=== PATIENT | male | born 1995 | race African-American/Black ===

== ENCOUNTER 2017-02-10 20:31 | Emergency (ER) | payer SELFPAY ==
[2017-02-10 21:41] LABS: APPEARANCE,URINE CLEAR; BILIRUBIN,URINE NEGATIVE (NEGATIVE); GLUCOSE, URINE NEGATIVE (NEGATIVE); KETONES,URINE 80 mg/dL (NEGATIVE); LEUKOCYTE ESTERASE,URINE NEGATIVE (NEGATIVE); NITRITE,URINE NEGATIVE (NEGATIVE); PROTEIN,URINE 100 mg/dL (NEGATIVE); URINE SPECIFIC GRAVITY 1.017; UROBILINOGEN,URINE NEGATIVE mg/dL (<2.0)
[2017-02-10 21:44] LABS: ABSOLUTE LYMPHOCYTES (AUTO) 1.3 10^3/uL (0.5-4.7); ABSOLUTE MONOCYTES (AUTO) 0.9 10^3/uL (0.1-1.4); ABSOLUTE NEUT (AUTO) 6.1 10^3/uL (1.7-8.2); BASOPHILS % (AUTO) 0.2 % (0-2); EOSINOPHILS % (AUTO) 0.3 % (0-6); HEMATOCRIT 46.2 % (37.9-51.0); HEMOGLOBIN 15.2 g/dL (13.5-17.0); HGB HCT DIFFERENCE -0.6; LYMPHOCYTES % (AUTO) 15.3 % (13-45); MEAN CORPUSCULAR HEMOGLOBIN 26.6 pg (27.0-33.4); MEAN CORPUSCULAR HGB CONC 32.8 g/dL (32.0-36.0); MEAN CORPUSCULAR VOLUME 81 fl (80-97); MONOCYTES % (AUTO) 10.9 % (3-13); RED BLOOD COUNT 5.71 10^6/uL (4.35-5.55); RED CELL DISTRIBUTION WIDTH 14.8 % (11.5-14.0); SEGMENTED NEUTROPHILS % (AUTO) 73.3 % (42-78); WHITE BLOOD COUNT 8.3 10^3/uL (4.0-10.5)
[2017-02-10 21:52] LABS: ALANINE AMINOTRANSFERASE 39 U/L (21-72); ALBUMIN 4.1 g/dL (3.5-5.0); ALKALINE PHOSPHATASE 76 U/L (38-126); ANION GAP 11 (5-19); ASPARTATE AMINO TRANSFERASE 25 U/L (17-59); BILIRUBIN,DIRECT 0.6 mg/dL (0.0-0.4); BILIRUBIN,TOTAL 0.9 mg/dL (0.2-1.3); BLOOD UREA NITROGEN 7 mg/dL (7-20); CALCIUM 10.1 mg/dL (8.4-10.2); CARBON DIOXIDE 26 mmol/L (22-30); CHLORIDE 104 mmol/L (98-107); GLUCOSE 79 mg/dL (75-110); POTASSIUM 4.6 mmol/L (3.6-5.0); SODIUM 141.4 mmol/L (137-145); TOTAL PROTEIN 7.5 g/dL (6.3-8.2)
[2017-02-10 22:01] LABS: LIPASE 2870.8 U/L (23-300)
[2017-02-10] MEDS ORDERED: HYDROCODONE/ACETAMINOPHEN 5-325 MG 6 TAB/DSPK PO PRN (22:40)
[2017-02-10] MEDS ORDERED: MORPHINE SULFATE IR 15 MG TABLET PO ONE (22:40)
[2017-02-10] MEDS ORDERED: ONDANSETRON ODT 4 MG TAB (6 TAB/DSPK) PO PRN (22:41)
--- NOTE | 2017-02-10 22:49 | ER Document Report ---
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 Describes as a severe, constant stabbing pain to the epigastrium worsened by alcohol ingestion. Nothing improves the pain. Patient states that this feels exactly the same as prior episodes of pancreatitis. Does admit to ongoing frequent alcohol abuse. He does not have a primary care physician. He has had one episode of vomiting since onset of the pain but otherwise reports has been able to tolerate oral intake without difficulty. He has not had any fever, chest pain or shortness of breath. TRAVEL OUTSIDE OF THE [place] IN LAST 30 DAYS: No - Related Data Allergies/Adverse Reactions: No Known Allergies Allergy (Verified 01/09/15 22:24) Past Medical History - General Information source: Patient - Social History Smoking Status: Current Every Day Smoker Chew tobacco use (# tins/day): No Frequency of alcohol use: daily Drug Abuse: None Lives with: Family Family History: Reviewed & Not Pertinent Patient has suicidal ideation: No Patient has homicidal ideation: No Renal/ Medical History: Denies: Hx Peritoneal Dialysis Psychiatric Medical History: Denies: Hx Depression - Immunizations Hx Diphtheria, Pertussis, Tetanus Vaccination: Yes Review of Systems - Review of Systems Notes: Constitutional: Negative for fever. HENT: Negative for sore throat. Eyes: Negative for visual changes. Cardiovascular: Negative for chest pain. Respiratory: Negative for shortness of breath. Gastrointestinal: Positive for abdominal pain and vomiting Genitourinary: Negative for dysuria. Musculoskeletal: Negative for back pain. Skin: Negative for rash. Neurological: Negative for headaches, weakness or numbness. 10 point ROS negative except as marked above and in HPI. Physical Exam - Vital signs Vitals: Temp Pulse Resp BP Pulse Ox 98.4 F 75 18 144/94 H 98 02/10/17 20:47 02/10/17 20:47 02/10/17 20:47 02/10/17 20:47 02/10/17 20:47 Interpretation: Hypertensive Notes: PHYSICAL EXAMINATION: GENERAL: Well-appearing, well-nourished and in no acute distress. HEAD: Atraumatic, normocephalic. EYES: Pupils equal round and reactive to light, extraocular movements intact, sclera anicteric, conjunctiva are normal. ENT: nares patent, oropharynx clear without exudates. Moist mucous membranes. NECK: Normal range of motion, supple without lymphadenopathy LUNGS: Breath sounds clear to auscultation bilaterally and equal. No wheezes rales or rhonchi. HEART: Regular rate and rhythm without murmurs ABDOMEN: Soft, mild epigastric abdominal tenderness on palpation otherwise no localized tenderness, normoactive bowel sounds. No guarding, no rebound. No masses appreciated. EXTREMITIES: Normal range of motion, no pitting or edema. No cyanosis. NEUROLOGICAL: No focal neurological deficits. Moves all extremities spontaneously and on command. PSYCH: Normal mood, normal affect. SKIN: Warm, Dry, normal turgor, no rashes or lesions noted. Course - Re-evaluation Re-evalutation: 02/10/17 22:41 Patient presents with clinical history and exam and labs to suggest acute pancreatitis. Lipase is markedly elevated today. Patient admits to alcohol use as the trigger for the acute episode of pancreatitis and has a history of the same in the past. At time of arrival, patient's vitals are within normal limits, they are well-appearing and in no acute distress. The patient has tolerated oral intake without difficulty and has not had any vomiting with today 's presentation. Pain was able to be controlled here in the emergency department with oral medications. Halifax score is 0. Patient is an appropriate candidate for outpatient management of this acute episode of pancreatitis using oral pain medications, antiemetics, and recommendations for a clear liquid diet until pain has resolved. I also provided the patient with a list of resources and extensively discussed with him at the bedside the importance of discontinuing his chronic alcohol abuse. At this time will discharge with return precautions and follow-up recommendations. Verbal discharge instructions given a the bedside and opportunity for questions given. Medication warnings reviewed. Patient is in agreement with this plan and has verbalized understanding of return precautions and the need for primary care follow-up in the next 24-72 hours. - Vital Signs Vital signs: Temp Pulse Resp BP Pulse Ox 99.1 F 93 12 143/77 H 99 02/10/17 22:54 02/10/17 22:54 02/10/17 22:54 02/10/17 22:54 02/10/17 22:54 - Laboratory Result Diagrams: 02/10/17 21:06 02/10/17 21:06 Laboratory results interpreted by me: 02/10/17 02/10/17 02/10/17 21:06 21:06 21:06 RBC 5.71 H MCH 26.6 L RDW 14.8 H Direct Bilirubin 0.6 H Lipase 2870.8 H Urine Protein 100 H Urine Ketones 80 H Urine Blood SMALL H Discharge - Discharge Clinical Impression: Acute pancreatitis Qualifiers: Pancreatitis type: alcohol induced Acute pancreatitis complication: no infection or necrosis Qualified Code(s): K85.20 - Alcohol induced acute pancreatitis without necrosis or infection Condition: Good Disposition: HOME, SELF-CARE Additional Instructions: You were seen today for alcohol-induced pancreatitis. Please avoid alcohol in any quantity in the future as this could cause a recurrence of your pancreatitis. Please keep in mind that pancreatitis can be a very serious condition that can even result in . Your case today appears very mild and it is safe for you to go home today with medications for pain and nausea. Please drink plenty of fluids over the next several days and try to avoid food ingestion until your pain is resolved. Do not drink alcohol as this can significantly worsen your pain and symptoms. Please return to the emergency department immediately if you develop persistent vomiting that prohibits you from taking your medications or keeping fluids down, you develop a fever of greater than 101F, you have worsening pain, you become confused, you become short of breath, or have any other symptoms that are worrisome to you. Please follow-up with your primary care doctor in the next 24-48 hours. Prescriptions: Morphine Sulfate [Morphine Ir 15 mg Tablet] 15 mg PO Q4HP PRN #6 tablet PRN Reason: Chlordiazepoxide HCl [Librium 25 mg Capsule] 1 cap PO TID PRN #10 capsule PRN Reason: Referrals: RAIN BRITO MD [ACTIVE STAFF] - Follow up as needed
[2017-02-10 22:57] VITALS: BP 143/77
== END 2017-02-10 23:02 | disposition home or self-care (01) ==
LOC: ER 20:31
DX: K85.20 Alcohol induced acute pancreatitis without necrosis or infection (principal); R10.9 Unspecified abdominal pain; F10.20 Alcohol dependence, uncomplicated; F17.200 Nicotine dependence, unspecified, uncomplicated
CPT/HCPCS: 36415; 80053; 81001; 83690; 85025; 99284

== ENCOUNTER 2017-05-26 11:59 | Emergency (ER) | payer SELFPAY ==
--- NOTE | 2017-05-26 12:42 | ER Document Report ---
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 No injury. Vision is blurry. No exposure to pinkeye. He thought something was in it under the left upper lid. Associated Symptoms: None - REPRODUCTIVE Reproductive: DENIES: : Past Medical History - General Information source: Patient - Social History Smoking Status: Current Every Day Smoker Frequency of alcohol use: None Drug Abuse: None Lives with: Family Family History: Reviewed & Not Pertinent - Medical History Medical History: Negative Renal/ Medical History: Denies: Hx Peritoneal Dialysis Psychiatric Medical History: Denies: Hx Depression Surgical Hx: Negative - Immunizations Hx Diphtheria, Pertussis, Tetanus Vaccination: Yes Vertical Provider Document - CONSTITUTIONAL Agree With Documented VS: Yes Exam Limitations: No Limitations General Appearance: No Apparent Distress - INFECTION CONTROL TRAVEL OUTSIDE OF THE [place] IN LAST 30 DAYS: No - HEENT HEENT: Conjuctival Injection - left, Normocephalic Notes: no FB, anterior chamber clear, no fluorescein uptake, vision normal bilateral. NO preauricular nodes. - NECK Neck: Supple - MUSCULOSKELETAL/EXTREMETIES Musculoskeletal/Extremeties: MAEW - NEURO Level of Consciousness: Awake, Alert - DERM Integumentary: No Rash Discharge - Discharge Clinical Impression: Left conjunctivitis Qualifiers: Conjunctivitis type: acute Acute conjunctivitis type: unspecified Qualified Code(s): H10.32 - Unspecified acute conjunctivitis, left eye Condition: Good Disposition: HOME, SELF-CARE Instructions: Conjunctivitis ([facility]), Eyedrop Use ([facility]), Sulfa Medications ([facility]) Additional Instructions: Return if eye gets worse Eyedrops for 3 days. see eye doctor if persists Prescriptions: Sulfacetamide Sodium [Bleph-10] 2 drop OU QID #5 ml Forms: Return to Work
[2017-05-26] MEDS ORDERED: TETRACAINE HCL 0.5% OPH SOLN 4 ML OS ONE (12:46)
[2017-05-26 12:48] VITALS: BP 133/87
[2017-05-26] MEDS ORDERED: TETRACAINE HCL 0.5% OPH SOLN 2 ML OS ONE (13:30)
== END 2017-05-26 14:15 | disposition home or self-care (01) ==
LOC: ER 11:59
DX: H10.32 Unspecified acute conjunctivitis, left eye (principal); H57.12 Ocular pain, left eye; F17.200 Nicotine dependence, unspecified, uncomplicated
CPT/HCPCS: 99283

== ENCOUNTER 2017-08-03 18:34 | Emergency (ER) | payer SELFPAY ==
[2017-08-03] MEDS ORDERED: FENTANYL CITRATE INJ/PF 100 MCG/2 ML AMPUL IM ONE (19:57)
[2017-08-03] MEDS ORDERED: ONDANSETRON 4 MG TAB.RAPDIS PO ONE (19:57)
--- NOTE | 2017-08-03 19:59 | ER Document Report ---
ED Medical Screen (RME) - General Chief Complaint: Abdominal Pain Stated Complaint: ABDOMINAL PAIN Time Seen by Provider: 08/03/17 19:54 Notes: RAPID MEDICAL EVALUATION DISCLOSURE I have seen this patient as part of a Rapid Medical Evaluation and, if applicable, placed any initially appropriate orders. The patient will be seen and fully evaluated, including a full history and physical exam, by a provider ( in Main ED or Fast Track) when a room becomes available. 21-year-old male PMH pancreatitis EtOH abuse here with complaints of epigastric abdominal pain that started yesterday evening after a day of binge drinking "a lot of beer". He has had nausea and vomiting, but no fevers chills diarrhea dysuria frequency hesitancy chest pain shortness of breath. He has not taken anything for the pain. He has had pancreatitis 4 times in the past due to alcohol use. EXAM Clear to auscultation bilaterally Regular rate and rhythm Mild epigastric tenderness to palpation No peritoneal signs TRAVEL OUTSIDE OF THE [place] IN LAST 30 DAYS: No - Related Data Allergies/Adverse Reactions: No Known Allergies Allergy (Verified 05/26/17 12:00) Past Medical History Renal/ Medical History: Denies: Hx Peritoneal Dialysis Psychiatric Medical History: Denies: Hx Depression - Immunizations Hx Diphtheria, Pertussis, Tetanus Vaccination: Yes Physical Exam - Vital signs Vitals: Temp Pulse BP Pulse Ox 98.6 F 74 152/87 H 97 08/03/17 18:37 08/03/17 18:37 08/03/17 18:37 08/03/17 18:37 Course - Vital Signs Vital signs: Temp Pulse Resp BP Pulse Ox 98.6 F 74 152/87 H 97 08/03/17 18:37 08/03/17 18:37 08/03/17 18:37 08/03/17 18:37
[2017-08-03 20:30] LABS: ABSOLUTE LYMPHOCYTES (AUTO) 1.9 10^3/uL (0.5-4.7); ABSOLUTE NEUT (AUTO) 6.1 10^3/uL (1.7-8.2); BASOPHILS % (AUTO) 0.4 % (0-2); EOSINOPHILS % (AUTO) 0.4 % (0-6); HEMATOCRIT 40.5 % (37.9-51.0); HEMOGLOBIN 13.3 g/dL (13.5-17.0); LYMPHOCYTES % (AUTO) 21.3 % (13-45); MEAN CORPUSCULAR HEMOGLOBIN 26.2 pg (27.0-33.4); MEAN CORPUSCULAR HGB CONC 32.8 g/dL (32.0-36.0); MEAN CORPUSCULAR VOLUME 80 fl (80-97); MONOCYTES % (AUTO) 11.1 % (3-13); PLATELET COUNT 294 10^3/uL (150-450); RED BLOOD COUNT 5.07 10^6/uL (4.35-5.55); RED CELL DISTRIBUTION WIDTH 15.3 % (11.5-14.0); SEGMENTED NEUTROPHILS % (AUTO) 66.8 % (42-78); TOTAL CELLS COUNTED % (AUTO) 100 %; WHITE BLOOD COUNT 9.1 10^3/uL (4.0-10.5)
[2017-08-03 20:52] LABS: ALANINE AMINOTRANSFERASE 36 U/L (21-72); ALBUMIN 4.6 g/dL (3.5-5.0); ALKALINE PHOSPHATASE 97 U/L (38-126); ANION GAP 12 (5-19); ASPARTATE AMINO TRANSFERASE 37 U/L (17-59); BILIRUBIN,DIRECT 0.3 mg/dL (0.0-0.4); BILIRUBIN,TOTAL 0.6 mg/dL (0.2-1.3); BLOOD UREA NITROGEN 12 mg/dL (7-20); CALCIUM 10.4 mg/dL (8.4-10.2); CARBON DIOXIDE 29 mmol/L (22-30); CHLORIDE 100 mmol/L (98-107); GLUCOSE 81 mg/dL (75-110); LIPASE 942.3 U/L (23-300); POTASSIUM 4.7 mmol/L (3.6-5.0); SODIUM 140.6 mmol/L (137-145); TOTAL PROTEIN 8.2 g/dL (6.3-8.2)
--- NOTE | 2017-08-03 22:29 | ER Document Report ---
ED General - General Chief Complaint: Abdominal Pain Stated Complaint: ABDOMINAL PAIN Time Seen by Provider: 08/03/17 19:54 Mode of Arrival: Ambulatory Information source: Patient Notes: 21-year-old male history of pancreatitis alcohol-related presents with complaints of left upper quadrant abdominal pain vomiting one time. Patient notes that his pain started after drinking heavily last night. He denies any fevers or chills TRAVEL OUTSIDE OF THE [place] IN LAST 30 DAYS: No - HPI Onset: This morning Onset/Duration: Sudden Quality of pain: Sharp Severity: Moderate Pain Level: 2 Associated symptoms: Nausea, Vomiting Exacerbated by: Other Relieved by: Denies Similar symptoms previously: Yes Recently seen / treated by doctor: Yes - Related Data Allergies/Adverse Reactions: No Known Allergies Allergy (Verified 05/26/17 12:00) Past Medical History - Social History Smoking Status: Current Every Day Smoker Cigarette use (# per day): Yes Chew tobacco use (# tins/day): No Smoking Education Provided: No Frequency of alcohol use: Heavy Family History: Reviewed & Not Pertinent Patient has suicidal ideation: No Patient has homicidal ideation: No Renal/ Medical History: Denies: Hx Peritoneal Dialysis Psychiatric Medical History: Denies: Hx Depression - Immunizations Hx Diphtheria, Pertussis, Tetanus Vaccination: Yes Review of Systems - Review of Systems Notes: REVIEW OF SYSTEMS: CONSTITUTIONAL : Denies fever, chills, or sweats. Denies recent illness. EENT: Denies eye, ear, throat, or mouth pain or symptoms. Denies nasal or sinus congestion or discharge. Denies throat, tongue, or mouth swelling or difficulty swallowing. CARDIOVASCULAR: Denies chest pain. Denies palpitations or racing or irregular heart beat. Denies ankle edema. RESPIRATORY: Denies cough, cold, or chest congestion. Denies shortness of breath, difficulty breathing, or wheezing. GASTROINTESTINAL: Admits to abdominal pain nausea vomiting GENITOURINARY: Denies difficulty urinating, painful urination, burning, frequency, blood in urine, or discharge. MUSCULOSKELETAL: Denies back or neck pain or stiffness. Denies joint pain or swelling. SKIN: Denies rash, lesions or sores. HEMATOLOGIC : Denies easy bruising or bleeding. LYMPHATIC: Denies swollen, enlarged glands. NEUROLOGICAL: Denies confusion or altered mental status. Denies passing out or loss of consciousness. Denies dizziness or lightheadedness. Denies headache. Denies weakness or paralysis or loss of use of either side. Denies problems with gait or speech. Denies sensory loss, numbness, or tingling. Denies seizures. PSYCHIATRIC: Denies anxiety or stress. Denies depression, suicidal ideation, or homicidal ideation. ALL OTHER SYSTEMS REVIEWED AND NEGATIVE. Dictation was performed using [employer] voice recognition software PHYSICAL EXAMINATION: GENERAL: Well-appearing, well-nourished and in no acute distress. HEAD: Atraumatic, normocephalic. EYES: Pupils equal round and reactive to light, extraocular movements intact, sclera anicteric, conjunctiva are normal. ENT: Nares patent, oropharynx clear without exudates. Moist mucous membranes. NECK: Normal range of motion, supple without lymphadenopathy LUNGS: Breath sounds clear to auscultation bilaterally and equal. No wheezes rales or rhonchi. HEART: Regular rate and rhythm without murmurs ABDOMEN: Soft, tender in the left upper quadrant with mild guarding Musculoskeletal: Normal range of motion, no pitting or edema. No cyanosis. NEUROLOGICAL: Cranial nerves grossly intact. Normal speech, normal gait. Normal sensory, motor exams PSYCH: Normal mood, normal affect. SKIN: Warm, Dry, normal turgor, no rashes or lesions noted. Physical Exam - Vital signs Vitals: Temp Pulse BP Pulse Ox 98.6 F 74 152/87 H 97 08/03/17 18:37 08/03/17 18:37 08/03/17 18:37 08/03/17 18:37 Course - Re-evaluation Re-evalutation: 08/03/17 22:29 Patient's lab work for elevated lipase is benign-appearing, overall he looks well is having tenderness, IV fluids will be given, I will reevaluate to see if the patient is able to orally hydrate so that he may go home or if he will require admission - Vital Signs Vital signs: Temp Pulse Resp BP Pulse Ox 98.6 F 74 18 150/67 H 98 08/03/17 18:37 08/03/17 18:37 08/04/17 00:00 08/04/17 00:00 08/04/17 00:00 - Laboratory Result Diagrams: 08/03/17 20:15 08/03/17 20:15 Laboratory results interpreted by me: 08/03/17 08/03/17 20:15 20:15 Hgb 13.3 L MCH 26.2 L RDW 15.3 H Calcium 10.4 H Lipase 942.3 H Discharge - Discharge Clinical Impression: Acute pancreatitis, Alcohol abuse Condition: Stable Disposition: HOME, SELF-CARE Instructions: Abdominal Pain ([facility]), Pancreatitis ([facility]) Additional Instructions: Follow up with your physician tomorrow for further care or return to the ED IMMEDIATELY if symptoms worsen or new concerns occur. If you cannot afford to follow up with your primary care physician a list of low cost clinics have been provided at the end of your discharge papers as well. Prescriptions: Metoclopramide HCl [Reglan 10 mg Tablet] 1 - 2 tab PO Q6 #25 tablet Oxycodone HCl/Acetaminophen [Percocet 5-325 mg Tablet] 1 tab PO Q6 #15 tab Referrals: KEV PARKS MD [ACTIVE STAFF] - Follow up tomorrow
[2017-08-03] MEDS: NORMAL SALINE 1000 ML 1,000 ML IV PRN ×2 (22:38→23:46)
[2017-08-03] MEDS ORDERED: MORPHINE SULFATE 10 MG/ML INJ IV ONE (22:38)
[2017-08-03] MEDS ORDERED: HYDROMORPHONE HCL INJ/PF 2 MG/ML AMPULE IV ONE (23:17)
[2017-08-04] MEDS ORDERED: HYDROCODONE/ACETAMINOPHEN 5-325 MG (6 TAB/ER DISP) PO PRN (01:12)
[2017-08-04] MEDS ORDERED: ONDANSETRON ODT 4 MG TAB (6 TAB/ER DISP) PO PRN (01:12)
[2017-08-04 01:24] VITALS: BP 133/97
== END 2017-08-04 01:25 | disposition home or self-care (01) ==
LOC: ER 18:34
DX: K85.90 Acute pancreatitis without necrosis or infection, unspecified (principal); F10.10 Alcohol abuse, uncomplicated; R10.12 Left upper quadrant pain; R11.2 Nausea with vomiting, unspecified; F17.210 Nicotine dependence, cigarettes, uncomplicated
CPT/HCPCS: 99284; 96361; 96374; 96375; 36415; 83690; 85025; 80053; S0119; J3010; J1170; J7030

== ENCOUNTER 2017-08-06 12:13 | Inpatient (IN) | payer SELFPAY ==
[2017-08-06] MEDS ORDERED: HYDROCODONE/ACETAMINOPHEN 5-325 MG TABLET PO ONE (12:37)
--- NOTE | 2017-08-06 12:38 | ER Document Report ---
ED Medical Screen (RME) - General Chief Complaint: Abdominal Pain Stated Complaint: ABDOMINAL PAIN Time Seen by Provider: 08/06/17 12:29 Notes: The patient is a 21-year-old male, history of heavy drinking, presents with worsening epigastric pain and pain in his mid back. He was diagnosed with mild pancreatitis 3 days ago and told to return to the ER for any worsening pain. PE: Epigastric tenderness, normal bowel sounds I have greeted and performed a rapid initial assessment of this patient. A comprehensive ED assessment and evaluation of the patient, analysis of test results and completion of the medical decision making process will be conducted by additional ED providers. TRAVEL OUTSIDE OF THE [place] IN LAST 30 DAYS: No - Related Data Allergies/Adverse Reactions: No Known Allergies Allergy (Verified 05/26/17 12:00) Past Medical History - Social History Chew tobacco use (# tins/day): No Frequency of alcohol use: Heavy Drug Abuse: None Renal/ Medical History: Denies: Hx Peritoneal Dialysis Psychiatric Medical History: Denies: Hx Depression - Immunizations Hx Diphtheria, Pertussis, Tetanus Vaccination: Yes Physical Exam - Vital signs Vitals: Temp Pulse Resp BP Pulse Ox 98.7 F 90 16 141/85 H 99 08/06/17 12:20 08/06/17 12:20 08/06/17 12:20 08/06/17 12:20 08/06/17 12:20 Course - Vital Signs Vital signs: Temp Pulse Resp BP Pulse Ox 98.7 F 90 16 141/85 H 99 08/06/17 12:20 08/06/17 12:20 08/06/17 12:20 08/06/17 12:20 08/06/17 12:20
[2017-08-06 13:07] LABS: ABSOLUTE EOSINOPHILS # (AUTO) 0.2 10^3/uL (0.0-0.6); ABSOLUTE MONOCYTES (AUTO) 0.9 10^3/uL (0.1-1.4); ABSOLUTE NEUT (AUTO) 5.1 10^3/uL (1.7-8.2); BASOPHILS % (AUTO) 0.1 % (0-2); EOSINOPHILS % (AUTO) 2.4 % (0-6); HEMATOCRIT 40.9 % (37.9-51.0); HEMOGLOBIN 13.5 g/dL (13.5-17.0); MEAN CORPUSCULAR HEMOGLOBIN 26.5 pg (27.0-33.4); MEAN CORPUSCULAR HGB CONC 32.9 g/dL (32.0-36.0); MEAN CORPUSCULAR VOLUME 81 fl (80-97); PLATELET COUNT 261 10^3/uL (150-450); RED BLOOD COUNT 5.09 10^6/uL (4.35-5.55); RED CELL DISTRIBUTION WIDTH 14.7 % (11.5-14.0); SEGMENTED NEUTROPHILS % (AUTO) 70.5 % (42-78); TOTAL CELLS COUNTED % (AUTO) 100 %; WHITE BLOOD COUNT 7.3 10^3/uL (4.0-10.5)
[2017-08-06 13:29] LABS: ALANINE AMINOTRANSFERASE 26 U/L (21-72); ALBUMIN 4.2 g/dL (3.5-5.0); ALKALINE PHOSPHATASE 85 U/L (38-126); ANION GAP 13 (5-19); ASPARTATE AMINO TRANSFERASE 25 U/L (17-59); BILIRUBIN,DIRECT 0.3 mg/dL (0.0-0.4); BILIRUBIN,TOTAL 0.4 mg/dL (0.2-1.3); BLOOD UREA NITROGEN 9 mg/dL (7-20); CARBON DIOXIDE 28 mmol/L (22-30); CHLORIDE 98 mmol/L (98-107); GLUCOSE 127 mg/dL (75-110); LIPASE 1987.1 U/L (23-300); POTASSIUM 4.3 mmol/L (3.6-5.0); SODIUM 139.3 mmol/L (137-145); TOTAL PROTEIN 7.9 g/dL (6.3-8.2)
[2017-08-06 13:31] LABS: ALCOHOL < 10 mg/dL (NONE DETECTED)
--- NOTE | 2017-08-06 13:34 | ER Document Report ---
ED General - General Chief Complaint: Abdominal Pain Stated Complaint: ABDOMINAL PAIN Time Seen by Provider: 08/06/17 12:29 Mode of Arrival: Ambulatory Information source: Patient Notes: 21-year-old male history of alcoholic pancreatitis who was seen by myself a few days prior presents with continued abdominal pain and decreased oral intake. Patient notes nausea has improved last vomited 2 days ago TRAVEL OUTSIDE OF THE [place] IN LAST 30 DAYS: No - HPI Onset: Other Onset/Duration: Persistent Quality of pain: Sharp Severity: Mild Pain Level: 1 Associated symptoms: Nausea, Other Exacerbated by: Food, Other - Alcohol Relieved by: Denies Similar symptoms previously: Yes Recently seen / treated by doctor: Yes - Related Data Allergies/Adverse Reactions: No Known Allergies Allergy (Verified 05/26/17 12:00) Past Medical History - Social History Smoking Status: Current Every Day Smoker Cigarette use (# per day): Yes Chew tobacco use (# tins/day): No Smoking Education Provided: No Frequency of alcohol use: Heavy Drug Abuse: None Family History: Reviewed & Not Pertinent Patient has suicidal ideation: No Patient has homicidal ideation: No Renal/ Medical History: Denies: Hx Peritoneal Dialysis Psychiatric Medical History: Denies: Hx Depression - Immunizations Hx Diphtheria, Pertussis, Tetanus Vaccination: Yes Review of Systems - Review of Systems Notes: REVIEW OF SYSTEMS: CONSTITUTIONAL : Denies fever, chills, or sweats. Denies recent illness. EENT: Denies eye, ear, throat, or mouth pain or symptoms. Denies nasal or sinus congestion or discharge. Denies throat, tongue, or mouth swelling or difficulty swallowing. CARDIOVASCULAR: Denies chest pain. Denies palpitations or racing or irregular heart beat. Denies ankle edema. RESPIRATORY: Denies cough, cold, or chest congestion. Denies shortness of breath, difficulty breathing, or wheezing. GASTROINTESTINAL: Admits abdominal pain previous vomiting GENITOURINARY: Denies difficulty urinating, painful urination, burning, frequency, blood in urine, or discharge. MUSCULOSKELETAL: Denies back or neck pain or stiffness. Denies joint pain or swelling. SKIN: Denies rash, lesions or sores. HEMATOLOGIC : Denies easy bruising or bleeding. LYMPHATIC: Denies swollen, enlarged glands. NEUROLOGICAL: Denies confusion or altered mental status. Denies passing out or loss of consciousness. Denies dizziness or lightheadedness. Denies headache. Denies weakness or paralysis or loss of use of either side. Denies problems with gait or speech. Denies sensory loss, numbness, or tingling. Denies seizures. PSYCHIATRIC: Denies anxiety or stress. Denies depression, suicidal ideation, or homicidal ideation. ALL OTHER SYSTEMS REVIEWED AND NEGATIVE. Dictation was performed using [employer] voice recognition software PHYSICAL EXAMINATION: GENERAL: Well-appearing, well-nourished and in no acute distress. HEAD: Atraumatic, normocephalic. EYES: Pupils equal round and reactive to light, extraocular movements intact, sclera anicteric, conjunctiva are normal. ENT: Nares patent, oropharynx clear without exudates. Moist mucous membranes. NECK: Normal range of motion, supple without lymphadenopathy LUNGS: Breath sounds clear to auscultation bilaterally and equal. No wheezes rales or rhonchi. HEART: Regular rate and rhythm without murmurs ABDOMEN: Soft, minimally tender left upper quadrant no rebound or guarding Musculoskeletal: Normal range of motion, no pitting or edema. No cyanosis. NEUROLOGICAL: Cranial nerves grossly intact. Normal speech, normal gait. Normal sensory, motor exams PSYCH: Normal mood, normal affect. SKIN: Warm, Dry, normal turgor, no rashes or lesions noted. Physical Exam - Vital signs Vitals: Temp Pulse Resp BP Pulse Ox 98.7 F 90 16 141/85 H 99 08/06/17 12:20 08/06/17 12:20 08/06/17 12:20 08/06/17 12:20 08/06/17 12:20 Course - Re-evaluation Re-evalutation: 08/06/17 13:33 Patient's lipase on previous visit was 900, lab work pending, he was given oral pain medication 08/06/17 14:15 Patient's lipase has increased, given that he is unable to tolerate oral I will admit him for IV hydration - Vital Signs Vital signs: Temp Pulse Resp BP Pulse Ox 98.7 F 90 16 141/85 H 99 08/06/17 12:20 08/06/17 12:20 08/06/17 12:20 08/06/17 12:20 08/06/17 12:20 - Laboratory Result Diagrams: 08/06/17 12:47 08/06/17 12:47 Laboratory results interpreted by me: 08/06/17 08/06/17 12:47 12:47 MCH 26.5 L RDW 14.7 H Glucose 127 H Lipase 1987.1 H Discharge - Discharge Clinical Impression: Alcohol abuse Acute pancreatitis Qualifiers: Pancreatitis type: alcohol induced Acute pancreatitis complication: unspecified Qualified Code(s): K85.20 - Alcohol induced acute pancreatitis without necrosis or infection Condition: Stable Disposition: ADMITTED INPATIENT Admitting Provider: Hospitalist Unit Admitted: Medical Floor
[2017-08-06] MEDS: NORMAL SALINE 1000 ML 1,000 ML IV PRN ×2 (14:07→15:21)
[2017-08-06] MEDS ORDERED: DEXTROSE 50%-WATER 25 GM/50 ML DISP.SYRIN IV PRN ×2 (14:54)
[2017-08-06] MEDS ORDERED: GLUCAGON,HUMAN RECOMB 1 MG INJ SUBCUT PRN (14:54)
[2017-08-06] MEDS ORDERED: DEXTROSE 40% GEL 15 GM TUBE PO PRN ×2 (14:54)
[2017-08-06] MEDS ORDERED: ONDANSETRON HCL INJ/PF 4 MG/2 ML SDV IV PRN (14:58)
[2017-08-06] MEDS: HYDROMORPHONE HCL INJ/PF 2 MG/ML AMPULE IV PRN ×3 (15:22→20:30)
[2017-08-06] MEDS ORDERED: NICOTINE 21 MG/24 HR PATCH.TD24 TD ONE (15:45)
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
[2017-08-06] MEDS: FAMOTIDINE INJ/PF 20 MG/2 ML SDV IV SCH (22:44)
[2017-08-07] MEDS: HYDROMORPHONE HCL INJ/PF 2 MG/ML AMPULE IV PRN ×6 (00:12→22:04)
[2017-08-07 07:01] LABS: HEMATOCRIT 35.1 % (37.9-51.0); HEMOGLOBIN 11.3 g/dL (13.5-17.0); MEAN CORPUSCULAR HEMOGLOBIN 26.4 pg (27.0-33.4); MEAN CORPUSCULAR HGB CONC 32.3 g/dL (32.0-36.0); MEAN CORPUSCULAR VOLUME 82 fl (80-97); PLATELET COUNT 208 10^3/uL (150-450); RED BLOOD COUNT 4.29 10^6/uL (4.35-5.55); RED CELL DISTRIBUTION WIDTH 14.9 % (11.5-14.0); WHITE BLOOD COUNT 6.5 10^3/uL (4.0-10.5)
[2017-08-07 07:18] LABS: ALANINE AMINOTRANSFERASE 26 U/L (21-72); ALKALINE PHOSPHATASE 62 U/L (38-126); ANION GAP 5 (5-19); ASPARTATE AMINO TRANSFERASE 21 U/L (17-59); BILIRUBIN,DIRECT 0.2 mg/dL (0.0-0.4); BILIRUBIN,TOTAL 0.2 mg/dL (0.2-1.3); BLOOD UREA NITROGEN 6 mg/dL (7-20); CARBON DIOXIDE 28 mmol/L (22-30); CHLORIDE 109 mmol/L (98-107); GLUCOSE 94 mg/dL (75-110); LIPASE 1731.5 U/L (23-300); PHOSPHORUS 3.3 mg/dL (2.5-4.5); POTASSIUM 4.7 mmol/L (3.6-5.0); SODIUM 142.3 mmol/L (137-145); TOTAL PROTEIN 5.8 g/dL (6.3-8.2)
[2017-08-07] MEDS: NICOTINE 21 MG/24 HR PATCH.TD24 TD SCH (09:49)
[2017-08-07] MEDS: FAMOTIDINE INJ/PF 20 MG/2 ML SDV IV SCH ×2 (09:49→21:08)
[2017-08-07] MEDS: ENOXAPARIN SODIUM INJ 40 MG/0.4 ML DISP.SYRIN SUBCUT SCH (09:49)
--- NOTE | 2017-08-07 12:42 | PDOC PROGRESS REPORT ---
Subjective Progress Note for:: 08/07/17 Subjective:: Pain improved but still present Reason For Visit: ALCOHOLIC/PANCREATITS Physical Exam Vital Signs: Temp Pulse Resp BP Pulse Ox 98.7 F 59 L 14 120/69 98 08/07/17 07:39 08/07/17 07:39 08/07/17 07:39 08/07/17 07:39 08/07/17 07:39 Intake & Output 08/06/17 08/07/17 08/08/17 05:59 05:59 05:59 Intake Total 750 450 Balance 750 450 Weight 147 lb 4.301 oz 147 lb 4.301 oz General appearance: PRESENT: no acute distress Respiratory exam: PRESENT: clear to auscultation kev Cardiovascular exam: PRESENT: RRR GI/Abdominal exam: PRESENT: soft, tenderness - Moderately tender mid abdomen Neurological exam: PRESENT: alert Psychiatric exam: PRESENT: flat affect Skin exam: PRESENT: warm Results Laboratory Results: 08/07/17 06:35 08/07/17 06:35 08/07/17 08/07/17 08/07/17 06:35 06:35 06:35 WBC 6.5 RBC 4.29 L Hgb 11.3 L D Hct 35.1 L MCV 82 MCH 26.4 L MCHC 32.3 RDW 14.9 H Plt Count 208 Sodium 142.3 Potassium 4.7 Chloride 109 H Carbon Dioxide 28 Anion Gap 5 BUN 6 L Creatinine 0.79 Est GFR ( Amer) > 60 Est GFR (Non-Af Amer) > 60 Glucose 94 Calcium 9.0 Phosphorus 3.3 Magnesium 1.8 Iron 40.0 L Total Bilirubin 0.2 AST 21 ALT 26 Alkaline Phosphatase 62 Total Protein 5.8 L Albumin 3.0 L Lipase 1731.5 H TSH 2.44 Assessment & Plan - Diagnosis (1) Acute alcoholic pancreatitis Is this a current diagnosis for this admission?: Yes Plan: He has not had a normal lipase and a couple years. Unclear what his baseline is. Usual treatment with hydration, n.p.o., pain and nausea medicine. (2) Cigarette smoker Is this a current diagnosis for this admission?: Yes Plan: Nicotine replacement (3) Alcohol abuse Is this a current diagnosis for this admission?: Yes Plan: He should be outside the window for withdrawal. Given the severity of his disease and his young age I think he is a very poor prognosis
[2017-08-07] MEDS: NORMAL SALINE 1000 ML 1,000 ML IV PRN (22:07)
[2017-08-08] MEDS: HYDROMORPHONE HCL INJ/PF 2 MG/ML AMPULE IV PRN ×8 (00:47→23:52)
[2017-08-08 05:39] LABS: ALBUMIN 3.2 g/dL (3.5-5.0); ANION GAP 7 (5-19); BLOOD UREA NITROGEN 5 mg/dL (7-20); CALCIUM 9.3 mg/dL (8.4-10.2); CARBON DIOXIDE 32 mmol/L (22-30); CHLORIDE 104 mmol/L (98-107); GLUCOSE 88 mg/dL (75-110); PHOSPHORUS 3.9 mg/dL (2.5-4.5); SODIUM 142.9 mmol/L (137-145)
[2017-08-08] MEDS: NORMAL SALINE 1000 ML 1,000 ML IV PRN ×3 (08:15→21:10)
[2017-08-08] MEDS: FAMOTIDINE INJ/PF 20 MG/2 ML SDV IV SCH ×2 (10:08→21:08)
[2017-08-08] MEDS: NICOTINE 21 MG/24 HR PATCH.TD24 TD SCH (10:08)
[2017-08-08] MEDS: ENOXAPARIN SODIUM INJ 40 MG/0.4 ML DISP.SYRIN SUBCUT SCH (10:14)
--- NOTE | 2017-08-08 12:11 | PDOC PROGRESS REPORT ---
Subjective Progress Note for:: 08/08/17 Subjective:: Still having abdominal pain that requires Dilaudid. States she has not been cheating and taking in anything orally. Reason For Visit: ALCOHOLIC/PANCREATITS Physical Exam Vital Signs: Temp Pulse Resp BP Pulse Ox 98.2 F 56 L 17 124/69 98 08/08/17 11:15 08/08/17 11:15 08/08/17 11:15 08/08/17 11:15 08/08/17 11:15 Intake & Output 08/07/17 08/08/17 08/09/17 05:59 05:59 05:59 Intake Total 750 1050 567 Balance 750 1050 567 Weight 147 lb 4.301 oz 147 lb 4.301 oz 149 lb 11.102 oz General appearance: PRESENT: no acute distress Respiratory exam: PRESENT: clear to auscultation kev Cardiovascular exam: PRESENT: RRR GI/Abdominal exam: PRESENT: soft, tenderness - In the epigastrium and periumbilical Extremities exam: ABSENT: +1 edema Musculoskeletal exam: PRESENT: normal inspection Neurological exam: PRESENT: alert Psychiatric exam: PRESENT: flat affect Skin exam: PRESENT: warm Results Laboratory Results: 08/07/17 06:35 08/08/17 04:46 08/08/17 04:46 Sodium 142.9 Potassium 4.0 Chloride 104 Carbon Dioxide 32 H Anion Gap 7 BUN 5 L Creatinine 0.73 Est GFR ( Amer) > 60 Est GFR (Non-Af Amer) > 60 Glucose 88 Calcium 9.3 Phosphorus 3.9 Magnesium 1.8 Albumin 3.2 L Lipase 1867.0 H Assessment & Plan - Diagnosis (1) Acute alcoholic pancreatitis Is this a current diagnosis for this admission?: Yes Plan: He has not had a normal lipase and a couple years. Unclear what his baseline is. Usual treatment with hydration, n.p.o., pain and nausea medicine. We also have not done any imaging since 2014 so I will get a CT since he does not appear to be improving with bowel rest. (2) Cigarette smoker Is this a current diagnosis for this admission?: Yes Plan: Nicotine replacement (3) Alcohol abuse Is this a current diagnosis for this admission?: Yes Plan: He should be outside the window for withdrawal. Given the severity of his disease and his young age I think he is a very poor prognosis
--- NOTE | 2017-08-08 14:26 | RADIOLOGY REPORT (SQ) ---
EXAM DESCRIPTION: CT ABD/PELVIS WITH IV ONLY COMPLETED DATE/TIME: 08/08/2017 1:54 pm REASON FOR STUDY: Pancreatitis not improving with bowel rest COMPARISON: None. TECHNIQUE: CT scan of the abdomen and pelvis performed using helical scanning technique with dynamic intravenous contrast injection. No oral contrast. Images reviewed with lung, soft tissue, and bone windows. Reconstructed coronal and sagittal MPR images reviewed. Delayed images for evaluation of the urinary system also acquired. All images stored on PACS. All CT scanners at this facility use dose modulation, iterative reconstruction, and/or weight based d osing when appropriate to reduce radiation dose to as low as reasonably achievable (ALARA). [facility]: Dose Right [facility]: CareDose [facility]: Dose Right [facility]: Teradose 4D [facility]: [employer] CONTRAST TYPE AND DOSE: Isovue 370. 75 mL. RENAL FUNCTION: Creatinine: 0.73. RADIATION DOSE: 539.7 LIMITATIONS: None. FINDINGS: LOWER CHEST: Chronic scarring left lower lobe. LIVER: No abnormality seen. SPLEEN: No abnormality seen. Accessory splenic tissue. PANCREAS: The pancreas is prominent with indistinctness of peripancreatic facial planes consistent wi th the history of pancreatitis. There is no evidence of pancreatic pseudocyst or pancreatic necrosis . Minimal thickening of the left anterior pararenal fascia compatible with history of pancreatitis. GALLBLADDER: No abnormality seen. ADRENAL GLANDS: No abnormality seen. RIGHT KIDNEY AND URETER: No abnormality seen. LEFT KIDNEY AND URETER: No abnormality seen. AORTA AND VESSELS: No aneurysm. No dissection. Renal arteries, SMA, celiac without stenosis. RETROPERITONEUM: No retroperitoneal adenopathy, hemorrhage or masses. BOWEL AND PERITONEAL CAVITY: There is thickening mucosa of the descending colon. The possibility of changes secondary to decompressed colon versus colitis cannot be excluded. Hiatal hernia. APPENDIX: Normal. PELVIS: Urinary bladder: No abnormality. Prostate and seminal vesicles: No abnormality. . ABDOMINAL WALL: No masses. No hernias. BONES: No significant or acute findings. OTHER: Ascites noted within the pelvis. IMPRESSION: CHANGES COMPATIBLE WITH ACUTE PANCREATITIS. MINIMAL ASCITES. THERE IS THICKENING OF TH E MUCOSA OF THE DESCENDING COLON. THE POSSIBILITY OF COLITIS CANNOT BE EXCLUDED. TECHNICAL DOCUMENTATION: JOB ID: [id number] Quality ID # [id number]: Final reports with documentation of one or more dose reduction techniques (e.g., Au tomated exposure control, adjustment of the mA and/or kV according to patient size, use of iterative reconstruction technique) 2010 [employer]- All Rights Reserved Reading location - IP/workstation name: [email or web address]
[2017-08-09] MEDS: HYDROMORPHONE HCL INJ/PF 2 MG/ML AMPULE IV PRN ×6 (02:23→21:21)
[2017-08-09 05:23] LABS: ALBUMIN 3.4 g/dL (3.5-5.0); ANION GAP 7 (5-19); BLOOD UREA NITROGEN 4 mg/dL (7-20); CALCIUM 9.7 mg/dL (8.4-10.2); CARBON DIOXIDE 35 mmol/L (22-30); CHLORIDE 102 mmol/L (98-107); GLUCOSE 87 mg/dL (75-110); LIPASE 1554.7 U/L (23-300); PHOSPHORUS 4.3 mg/dL (2.5-4.5); POTASSIUM 4.2 mmol/L (3.6-5.0); SODIUM 143.6 mmol/L (137-145)
[2017-08-09] MEDS: NICOTINE 21 MG/24 HR PATCH.TD24 TD SCH (09:46)
[2017-08-09] MEDS: FAMOTIDINE INJ/PF 20 MG/2 ML SDV IV SCH ×2 (09:46→21:21)
[2017-08-09] MEDS: NORMAL SALINE 1000 ML 1,000 ML IV PRN (09:47)
[2017-08-09] MEDS: ENOXAPARIN SODIUM INJ 40 MG/0.4 ML DISP.SYRIN SUBCUT SCH (09:56)
--- NOTE | 2017-08-09 13:33 | PDOC PROGRESS REPORT ---
Subjective Progress Note for:: 08/09/17 Subjective:: Still requiring occasional IV pain medication Reason For Visit: ALCOHOLIC/PANCREATITS Physical Exam Vital Signs: Temp Pulse Resp BP Pulse Ox 98.9 F 59 L 18 140/86 H 100 08/09/17 11:16 08/09/17 11:16 08/09/17 11:16 08/09/17 11:16 08/09/17 11:16 Intake & Output 08/08/17 08/09/17 08/10/17 05:59 05:59 05:59 Intake Total 1050 1317 Balance 1050 1317 Weight 147 lb 4.301 oz 149 lb 11.102 oz 149 lb 11.102 oz General appearance: PRESENT: no acute distress Respiratory exam: PRESENT: clear to auscultation kev Cardiovascular exam: PRESENT: RRR GI/Abdominal exam: PRESENT: soft, tenderness - Decreasing mid abdominal Neurological exam: PRESENT: alert Psychiatric exam: PRESENT: appropriate affect Skin exam: PRESENT: warm Results Laboratory Results: 08/07/17 06:35 08/09/17 04:27 08/09/17 04:27 Sodium 143.6 Potassium 4.2 Chloride 102 Carbon Dioxide 35 H Anion Gap 7 BUN 4 L Creatinine 0.77 Est GFR ( Amer) > 60 Est GFR (Non-Af Amer) > 60 Glucose 87 Calcium 9.7 Phosphorus 4.3 Magnesium 1.7 Albumin 3.4 L Lipase 1554.7 H Impressions: Abdomen/Pelvis CT 08/08/17 00:00 IMPRESSION: CHANGES COMPATIBLE WITH ACUTE PANCREATITIS. MINIMAL ASCITES. THERE IS THICKENING OF THE MUCOSA OF THE DESCENDING COLON. THE POSSIBILITY OF COLITIS CANNOT BE EXCLUDED. Assessment & Plan - Diagnosis (1) Acute alcoholic pancreatitis Qualifiers: Acute pancreatitis complication: no infection or necrosis Qualified Code(s) : K85.20 - Alcohol induced acute pancreatitis without necrosis or infection Is this a current diagnosis for this admission?: Yes Plan: He has not had a normal lipase and a couple years. Unclear what his baseline is. Usual treatment with hydration, n.p.o., pain and nausea medicine. CT showed a markedly swollen pancreas with surrounding stranding. No calcifications or pseudocyst. (2) Cigarette smoker Is this a current diagnosis for this admission?: Yes Plan: Nicotine replacement (3) Alcohol abuse Is this a current diagnosis for this admission?: Yes Plan: He should be outside the window for withdrawal. Given the severity of his disease and his young age I think he is a very poor prognosis
[2017-08-10] MEDS: HYDROMORPHONE HCL INJ/PF 2 MG/ML AMPULE IV PRN ×8 (00:10→23:39)
[2017-08-10] MEDS: NORMAL SALINE 1000 ML 1,000 ML IV PRN ×3 (00:11→23:40)
[2017-08-10 07:34] LABS: ALBUMIN 3.6 g/dL (3.5-5.0); ANION GAP 10 (5-19); BLOOD UREA NITROGEN 6 mg/dL (7-20); CALCIUM 9.7 mg/dL (8.4-10.2); CARBON DIOXIDE 34 mmol/L (22-30); CHLORIDE 102 mmol/L (98-107); GLUCOSE 92 mg/dL (75-110); LIPASE 1936.4 U/L (23-300); PHOSPHORUS 4.4 mg/dL (2.5-4.5); POTASSIUM 4.1 mmol/L (3.6-5.0); SODIUM 145.6 mmol/L (137-145)
[2017-08-10] MEDS: FAMOTIDINE INJ/PF 20 MG/2 ML SDV IV SCH ×2 (11:16→21:24)
[2017-08-10] MEDS: NICOTINE 21 MG/24 HR PATCH.TD24 TD SCH (11:17)
[2017-08-10] MEDS: ENOXAPARIN SODIUM INJ 40 MG/0.4 ML DISP.SYRIN SUBCUT SCH (11:18)
--- NOTE | 2017-08-10 13:34 | PDOC PROGRESS REPORT ---
Subjective Progress Note for:: 08/10/17 Subjective:: Still requiring occasional IV pain medication Reason For Visit: ALCOHOLIC/PANCREATITS Physical Exam Vital Signs: Temp Pulse Resp BP Pulse Ox 98.7 F 53 L 19 158/96 H 100 08/10/17 11:54 08/10/17 11:54 08/10/17 11:54 08/10/17 11:54 08/10/17 11:54 Intake & Output 08/09/17 08/10/17 08/11/17 05:59 05:59 05:59 Intake Total 1317 2250 Balance 1317 2250 Weight 149 lb 11.102 oz 146 lb 13.246 oz General appearance: PRESENT: no acute distress Respiratory exam: PRESENT: clear to auscultation kev Cardiovascular exam: PRESENT: RRR GI/Abdominal exam: PRESENT: soft, tenderness - Mid abdomen. Roughly the same as yesterday Neurological exam: PRESENT: alert Psychiatric exam: PRESENT: appropriate affect Skin exam: PRESENT: warm Results Laboratory Results: 08/07/17 06:35 08/10/17 05:53 08/10/17 05:53 Sodium 145.6 H Potassium 4.1 Chloride 102 Carbon Dioxide 34 H Anion Gap 10 BUN 6 L Creatinine 0.79 Est GFR ( Amer) > 60 Est GFR (Non-Af Amer) > 60 Glucose 92 Calcium 9.7 Phosphorus 4.4 Magnesium 1.9 Albumin 3.6 Lipase 1936.4 H Impressions: Abdomen/Pelvis CT 08/08/17 00:00 IMPRESSION: CHANGES COMPATIBLE WITH ACUTE PANCREATITIS. MINIMAL ASCITES. THERE IS THICKENING OF THE MUCOSA OF THE DESCENDING COLON. THE POSSIBILITY OF COLITIS CANNOT BE EXCLUDED. Assessment & Plan - Diagnosis (1) Acute alcoholic pancreatitis Qualifiers: Acute pancreatitis complication: no infection or necrosis Qualified Code(s) : K85.20 - Alcohol induced acute pancreatitis without necrosis or infection Is this a current diagnosis for this admission?: Yes Plan: He has not had a normal lipase and a couple years. Unclear what his baseline is. Usual treatment with hydration, n.p.o., pain and nausea medicine. CT showed a markedly swollen pancreas with surrounding stranding. No calcifications or pseudocyst. (2) Cigarette smoker Is this a current diagnosis for this admission?: Yes Plan: Nicotine replacement (3) Alcohol abuse Is this a current diagnosis for this admission?: Yes Plan: He should be outside the window for withdrawal. Given the severity of his disease and his young age I think he is a very poor prognosis
[2017-08-11] MEDS: HYDROMORPHONE HCL INJ/PF 2 MG/ML AMPULE IV PRN ×8 (04:01→22:47)
[2017-08-11] MEDS: NICOTINE 21 MG/24 HR PATCH.TD24 TD SCH (10:31)
[2017-08-11] MEDS: FAMOTIDINE INJ/PF 20 MG/2 ML SDV IV SCH ×2 (10:31→22:47)
[2017-08-11] MEDS: ENOXAPARIN SODIUM INJ 40 MG/0.4 ML DISP.SYRIN SUBCUT SCH (11:11)
--- NOTE | 2017-08-11 13:57 | PDOC PROGRESS REPORT ---
Subjective Progress Note for:: 08/11/17 Subjective:: Still requiring occasional IV pain medication Reason For Visit: ALCOHOLIC/PANCREATITS Physical Exam Vital Signs: Temp Pulse Resp BP Pulse Ox 98.0 F 59 L 15 119/68 99 08/11/17 12:10 08/11/17 12:10 08/11/17 12:10 08/11/17 12:10 08/11/17 12:10 Intake & Output 08/10/17 08/11/17 08/12/17 05:59 05:59 05:59 Intake Total 2250 30262 950 Balance 2250 79231 950 Weight 146 lb 13.246 oz 145 lb 11.609 oz General appearance: PRESENT: no acute distress Respiratory exam: PRESENT: clear to auscultation kev Cardiovascular exam: PRESENT: RRR GI/Abdominal exam: PRESENT: soft Musculoskeletal exam: PRESENT: normal inspection Neurological exam: PRESENT: alert Psychiatric exam: PRESENT: appropriate affect Skin exam: PRESENT: warm Results Laboratory Results: 08/07/17 06:35 08/10/17 05:53 Impressions: Abdomen/Pelvis CT 08/08/17 00:00 IMPRESSION: CHANGES COMPATIBLE WITH ACUTE PANCREATITIS. MINIMAL ASCITES. THERE IS THICKENING OF THE MUCOSA OF THE DESCENDING COLON. THE POSSIBILITY OF COLITIS CANNOT BE EXCLUDED. Assessment & Plan - Diagnosis (1) Acute alcoholic pancreatitis Qualifiers: Acute pancreatitis complication: no infection or necrosis Qualified Code(s) : K85.20 - Alcohol induced acute pancreatitis without necrosis or infection Is this a current diagnosis for this admission?: Yes Plan: He has not had a normal lipase and a couple years. Unclear what his baseline is. Usual treatment with hydration, n.p.o., pain and nausea medicine. CT showed a markedly swollen pancreas with surrounding stranding. No calcifications or pseudocyst. (2) Cigarette smoker Is this a current diagnosis for this admission?: Yes Plan: Nicotine replacement (3) Alcohol abuse Is this a current diagnosis for this admission?: Yes Plan: He should be outside the window for withdrawal. Given the severity of his disease and his young age I think he is a very poor prognosis
[2017-08-11] MEDS: NORMAL SALINE 1000 ML 1,000 ML IV PRN (19:17)
[2017-08-12] MEDS: HYDROMORPHONE HCL INJ/PF 2 MG/ML AMPULE IV PRN ×7 (01:27→22:31)
[2017-08-12] MEDS: NORMAL SALINE 1000 ML 1,000 ML IV PRN ×4 (01:27→22:31)
[2017-08-12 06:20] LABS: HEMATOCRIT 36.3 % (37.9-51.0); HEMOGLOBIN 11.6 g/dL (13.5-17.0); MEAN CORPUSCULAR HEMOGLOBIN 26.1 pg (27.0-33.4); MEAN CORPUSCULAR HGB CONC 31.9 g/dL (32.0-36.0); MEAN CORPUSCULAR VOLUME 82 fl (80-97); PLATELET COUNT 274 10^3/uL (150-450); RED BLOOD COUNT 4.44 10^6/uL (4.35-5.55); RED CELL DISTRIBUTION WIDTH 14.6 % (11.5-14.0); WHITE BLOOD COUNT 5.8 10^3/uL (4.0-10.5)
[2017-08-12 06:41] LABS: ALBUMIN 3.6 g/dL (3.5-5.0); ANION GAP 9 (5-19); BLOOD UREA NITROGEN 8 mg/dL (7-20); CALCIUM 9.5 mg/dL (8.4-10.2); CARBON DIOXIDE 30 mmol/L (22-30); CHLORIDE 105 mmol/L (98-107); GLUCOSE 96 mg/dL (75-110); LIPASE 1650.1 U/L (23-300); PHOSPHORUS 4.5 mg/dL (2.5-4.5); POTASSIUM 4.4 mmol/L (3.6-5.0); SODIUM 143.8 mmol/L (137-145)
[2017-08-12] MEDS: FAMOTIDINE INJ/PF 20 MG/2 ML SDV IV SCH ×2 (09:38→22:31)
[2017-08-12] MEDS: NICOTINE 21 MG/24 HR PATCH.TD24 TD SCH (09:38)
[2017-08-12] MEDS: ENOXAPARIN SODIUM INJ 40 MG/0.4 ML DISP.SYRIN SUBCUT SCH (09:39)
--- NOTE | 2017-08-12 10:36 | PDOC PROGRESS REPORT ---
Subjective Progress Note for:: 08/12/17 Subjective:: Still requiring occasional IV pain medication Reason For Visit: ALCOHOLIC/PANCREATITS Physical Exam Vital Signs: Temp Pulse Resp BP Pulse Ox 98.1 F 51 L 18 138/94 H 100 08/12/17 07:03 08/12/17 07:03 08/12/17 07:03 08/12/17 07:03 08/12/17 07:03 Intake & Output 08/11/17 08/12/17 08/13/17 05:59 05:59 05:59 Intake Total 38978 950 1800 Balance 26062 950 1800 Weight 145 lb 11.609 oz 149 lb 14.629 oz General appearance: PRESENT: no acute distress Respiratory exam: PRESENT: clear to auscultation kev Cardiovascular exam: PRESENT: RRR GI/Abdominal exam: PRESENT: soft Neurological exam: PRESENT: alert Psychiatric exam: PRESENT: appropriate affect Skin exam: PRESENT: warm Results Laboratory Results: 08/12/17 05:30 08/12/17 05:30 08/12/17 08/12/17 05:30 05:30 WBC 5.8 RBC 4.44 Hgb 11.6 L Hct 36.3 L MCV 82 MCH 26.1 L MCHC 31.9 L RDW 14.6 H Plt Count 274 Sodium 143.8 Potassium 4.4 Chloride 105 Carbon Dioxide 30 Anion Gap 9 BUN 8 Creatinine 0.87 Est GFR ( Amer) > 60 Est GFR (Non-Af Amer) > 60 Glucose 96 Calcium 9.5 Phosphorus 4.5 Magnesium 1.8 Albumin 3.6 Lipase 1650.1 H Impressions: Abdomen/Pelvis CT 08/08/17 00:00 IMPRESSION: CHANGES COMPATIBLE WITH ACUTE PANCREATITIS. MINIMAL ASCITES. THERE IS THICKENING OF THE MUCOSA OF THE DESCENDING COLON. THE POSSIBILITY OF COLITIS CANNOT BE EXCLUDED. Assessment & Plan - Diagnosis (1) Acute alcoholic pancreatitis Qualifiers: Acute pancreatitis complication: no infection or necrosis Qualified Code(s) : K85.20 - Alcohol induced acute pancreatitis without necrosis or infection Is this a current diagnosis for this admission?: Yes Plan: He has not had a normal lipase and a couple years. Unclear what his baseline is. Usual treatment with hydration, n.p.o., pain and nausea medicine. CT showed a markedly swollen pancreas with surrounding stranding. No calcifications or pseudocyst. (2) Cigarette smoker Is this a current diagnosis for this admission?: Yes Plan: Nicotine replacement (3) Alcohol abuse Is this a current diagnosis for this admission?: Yes Plan: He should be outside the window for withdrawal. Given the severity of his disease and his young age I think he is a very poor prognosis
[2017-08-13] MEDS: HYDROMORPHONE HCL INJ/PF 2 MG/ML AMPULE IV PRN ×5 (01:31→15:43)
[2017-08-13 05:42] LABS: ALBUMIN 3.5 g/dL (3.5-5.0); ANION GAP 12 (5-19); BLOOD UREA NITROGEN 8 mg/dL (7-20); CALCIUM 9.4 mg/dL (8.4-10.2); CARBON DIOXIDE 28 mmol/L (22-30); CHLORIDE 105 mmol/L (98-107); GLUCOSE 109 mg/dL (75-110); LIPASE 1241.5 U/L (23-300); PHOSPHORUS 4.1 mg/dL (2.5-4.5); POTASSIUM 4.3 mmol/L (3.6-5.0); SODIUM 145.2 mmol/L (137-145)
[2017-08-13] MEDS: NICOTINE 21 MG/24 HR PATCH.TD24 TD SCH (09:11)
[2017-08-13] MEDS: ENOXAPARIN SODIUM INJ 40 MG/0.4 ML DISP.SYRIN SUBCUT SCH (09:11)
[2017-08-13] MEDS: FAMOTIDINE INJ/PF 20 MG/2 ML SDV IV SCH ×2 (09:11→23:42)
--- NOTE | 2017-08-13 16:27 | PDOC PROGRESS REPORT ---
Subjective Progress Note for:: 08/13/17 Reason For Visit: ALCOHOLIC/PANCREATITS Abdominal pain is improving, pain level is 3 out of 10 patient has been n.p.o. for almost 5-6 days denies nausea vomiting diarrhea, has bowel movement days ago , passing gas daily Physical Exam Vital Signs: Temp Pulse Resp BP Pulse Ox 98.3 F 53 L 16 133/89 H 100 08/13/17 16:10 08/13/17 16:10 08/13/17 16:10 08/13/17 16:10 08/13/17 16:10 Intake & Output 08/12/17 08/13/17 08/14/17 06:59 06:59 06:59 Intake Total 1800 3300 Balance 1800 3300 Weight 68 kg 67.7 kg General appearance: PRESENT: no acute distress, well-developed, well-nourished GI/Abdominal exam: PRESENT: other - Abdomen is soft has tenderness on the periumbilical area no rebound or guarding Results Laboratory Results: 08/12/17 05:30 08/13/17 04:22 08/13/17 04:22 Sodium 145.2 H Potassium 4.3 Chloride 105 Carbon Dioxide 28 Anion Gap 12 BUN 8 Creatinine 0.86 Est GFR ( Amer) > 60 Est GFR (Non-Af Amer) > 60 Glucose 109 Calcium 9.4 Phosphorus 4.1 Magnesium 1.9 Albumin 3.5 Lipase 1241.5 H Impressions: Abdomen/Pelvis CT 08/08/17 00:00 IMPRESSION: CHANGES COMPATIBLE WITH ACUTE PANCREATITIS. MINIMAL ASCITES. THERE IS THICKENING OF THE MUCOSA OF THE DESCENDING COLON. THE POSSIBILITY OF COLITIS CANNOT BE EXCLUDED. Assessment & Plan - Plan Summary Plan Summary: Assessment & Plan - Diagnosis (1) Acute alcoholic pancreatitis Qualifiers: Acute pancreatitis complication: no infection or necrosis Qualified Code(s) : K85.20 - Alcohol induced acute pancreatitis without necrosis or infection Is this a current diagnosis for this admission?: Yes Plan: CT on admission no-evidence of necrosis, WBC and labs stable Patient's clinical symptom is improving start clear liquid diet advance to full if tolerated, continue pain management decrease fluid to 75 mL/h (2) Cigarette smoker Is this a current diagnosis for this admission?: Yes Plan: Nicotine replacement (3) Alcohol abuse Is this a current diagnosis for this admission?: Yes Plan: Counseling given
[2017-08-13] MEDS ORDERED: HYDROMORPHONE HCL INJ/PF 2 MG/ML AMPULE IV PRN (17:22)
[2017-08-13] MEDS: OXYCODONE-ACETAMINOPHEN 5-325 MG TABLET PO PRN (19:48)
[2017-08-14] MEDS: ENOXAPARIN SODIUM INJ 40 MG/0.4 ML DISP.SYRIN SUBCUT SCH (10:46)
[2017-08-14] MEDS: NICOTINE 21 MG/24 HR PATCH.TD24 TD SCH (10:46)
[2017-08-14] MEDS: FAMOTIDINE INJ/PF 20 MG/2 ML SDV IV SCH ×2 (10:46→22:54)
[2017-08-14] MEDS: OXYCODONE-ACETAMINOPHEN 5-325 MG TABLET PO PRN ×3 (10:51→19:29)
[2017-08-14] MEDS: NORMAL SALINE 1000 ML 1,000 ML IV PRN (12:09)
--- NOTE | 2017-08-14 15:59 | PDOC PROGRESS REPORT ---
Subjective Progress Note for:: 08/14/17 Subjective:: Patient admitted with acute pancreatitis. He states that he feels better. He has been on liquid diet and he seems to be tolerating that however his last lipase was more than 1000 he still. I will continue with the full liquids and obtain follow-up lipase level in a.m. Reason For Visit: ALCOHOLIC/PANCREATITS Physical Exam Vital Signs: Temp Pulse Resp BP Pulse Ox 98.8 F 90 16 143/77 H 100 08/14/17 15:29 08/14/17 15:29 08/14/17 15:29 08/14/17 15:29 08/14/17 15:29 Intake & Output 08/13/17 08/14/17 08/15/17 06:59 06:59 06:59 Intake Total 3300 2950 Balance 3300 2950 Weight 67.7 kg 67.2 kg General appearance: PRESENT: no acute distress, thin Head exam: PRESENT: atraumatic, normocephalic Eye exam: PRESENT: conjunctiva pink, PERRLA. ABSENT: scleral icterus Mouth exam: PRESENT: tongue midline Neck exam: ABSENT: carotid bruit, JVD, lymphadenopathy, thyromegaly Respiratory exam: PRESENT: clear to auscultation kev. ABSENT: rales, rhonchi, wheezes Cardiovascular exam: PRESENT: RRR. ABSENT: diastolic murmur, rubs, systolic murmur Pulses: PRESENT: normal dorsalis pedis pul Vascular exam: PRESENT: normal capillary refill GI/Abdominal exam: PRESENT: normal bowel sounds, soft. ABSENT: distended, guarding, mass, organolmegaly, rebound, tenderness Rectal exam: PRESENT: deferred Extremities exam: PRESENT: full ROM. ABSENT: calf tenderness, clubbing, pedal edema Neurological exam: PRESENT: alert, awake, oriented to person, oriented to place , oriented to time, oriented to situation, CN II-XII grossly intact. ABSENT: motor sensory deficit Psychiatric exam: PRESENT: appropriate affect, normal mood. ABSENT: homicidal ideation, suicidal ideation Skin exam: PRESENT: dry, intact, warm. ABSENT: cyanosis, rash Results Laboratory Results: 08/12/17 05:30 08/13/17 04:22 Impressions: Abdomen/Pelvis CT 08/08/17 00:00 IMPRESSION: CHANGES COMPATIBLE WITH ACUTE PANCREATITIS. MINIMAL ASCITES. THERE IS THICKENING OF THE MUCOSA OF THE DESCENDING COLON. THE POSSIBILITY OF COLITIS CANNOT BE EXCLUDED. Assessment & Plan - Time Time Spent with patient: 15-24 minutes Smoking Cessation Education: 3 to 10 minutes Medications reviewed and adjusted accordingly: Yes Anticipated discharge: Home Within: within 48 hours - Inpatient Certification Based on my medical assessment, after consideration of the patient's comorbidities, presenting symptoms, or acuity I expect that the services needed warrant INPATIENT care.: Yes Medical Necessity: Need For IV Fluids, Risk of Complication if Not Cared For in Hospital - Plan Summary Plan Summary: Acute alcoholic pancreatitis slowly resolving. Follow-up lipase in a.m. 2. Nicotine abuse and counseled on need to stop smoking 3. Alcohol abuse. Advised on need to abstain
[2017-08-15] MEDS: OXYCODONE-ACETAMINOPHEN 5-325 MG TABLET PO PRN ×2 (00:12→07:49)
[2017-08-15 06:47] LABS: ANION GAP 10 (5-19); BLOOD UREA NITROGEN 9 mg/dL (7-20); CALCIUM 9.9 mg/dL (8.4-10.2); CARBON DIOXIDE 27 mmol/L (22-30); CHLORIDE 106 mmol/L (98-107); GLUCOSE 98 mg/dL (75-110); POTASSIUM 4.1 mmol/L (3.6-5.0); SODIUM 143.4 mmol/L (137-145)
--- NOTE | 2017-08-15 08:41 | PDOC DISCHARGE SUMMARY ---
General - Admit/Disc Date/PCP Admission Date/Primary Care Provider: 08/06/17 14:35 Discharge Date: 08/15/17 - Discharge Diagnosis (1) Acute on chronic pancreatitis Is this a current diagnosis for this admission?: Yes (2) Alcohol abuse Is this a current diagnosis for this admission?: Yes (3) Cigarette smoker Is this a current diagnosis for this admission?: Yes - Additional Information Resuscitation Status: Full Code Discharge Diet: Other (Comments) - low fat diet Discharge Activity: Activity As Tolerated Prescriptions: Lipase/Protease/Amylase [[place]ared Ann 12,000 Units Capsule] 1 cap PO TID 30 Days # 90 capsule. Pantoprazole Sodium [Protonix] 40 mg PO DAILY 30 Days #30 tablet. Home Medications: Metoclopramide HCl [Reglan 10 mg Tablet] 10 mg PO Q4HP PRN 08/06/17 Oxycodone HCl/Acetaminophen [Percocet 5-325 mg Tablet] 1 tab PO Q6HP PRN Lipase/Protease/Amylase [Yared Ann 12,000 Units Capsule] 1 cap PO TID 30 Days # 90 capsule. 08/15/17 Pantoprazole Sodium [Protonix] 40 mg PO DAILY 30 Days #30 tablet. 08/15/17 History of Present Illness History of Present Illness: LEVI POP is a 21 year old male with a history of alcoholic pancreatitis. He had been to the ER earlier this week was managed with fluids, antiemetics, pain medications, and decided to go home. Since then he has had excruciating pain anytime he tries to eat or drink so he returns to the ER. He states that his last drink was 5 days ago. He denies nausea, vomiting, diarrhea. Hospital Course Hospital Course: 1 acute on chronic pancreatitis Patient is extremely young 21-year-old with several years chronic alcoholism already Patient likely has acute on chronic pancreatitis although he does not have any pancreatic calcifications CT abdomen and pelvis was negative for pancreatic pseudocysts Patient did improve during his hospital stay and can tolerate a diet at discharge He is having chronic abdominal pain Patient will be prescribed pancreatic enzymes at discharge which certainly will help with the chronic abdominal pain Protonix 40 mg daily also was prescribed at discharge 2 chronic alcoholism Patient will be ready referred to AA for help and counseling Physical Exam Vital Signs: Temp Pulse Resp BP Pulse Ox 98.2 F 54 L 20 143/96 H 100 05/19/18 07:16 08/15/17 07:16 08/15/17 07:16 08/15/17 07:16 08/15/17 07:16 Intake & Output 08/14/17 08/15/17 08/16/17 00:59 00:59 00:59 Intake Total 2504 2246 900 Balance 2504 2246 900 Weight 67.7 kg 67.2 kg 66.2 kg General appearance: PRESENT: no acute distress, thin Head exam: PRESENT: atraumatic, normocephalic Eye exam: PRESENT: conjunctiva pink, PERRLA. ABSENT: scleral icterus Mouth exam: PRESENT: tongue midline Neck exam: ABSENT: carotid bruit, JVD, lymphadenopathy, thyromegaly Respiratory exam: PRESENT: clear to auscultation kev. ABSENT: rales, rhonchi, wheezes Cardiovascular exam: PRESENT: RRR. ABSENT: diastolic murmur, rubs, systolic murmur Pulses: PRESENT: normal dorsalis pedis pul Vascular exam: PRESENT: normal capillary refill GI/Abdominal exam: PRESENT: normal bowel sounds, soft. ABSENT: distended, guarding, mass, organolmegaly, rebound, tenderness Rectal exam: PRESENT: deferred Extremities exam: PRESENT: full ROM. ABSENT: calf tenderness, clubbing, pedal edema Neurological exam: PRESENT: alert, awake, oriented to person, oriented to place , oriented to time, oriented to situation, CN II-XII grossly intact. ABSENT: motor sensory deficit Psychiatric exam: PRESENT: appropriate affect, normal mood. ABSENT: homicidal ideation, suicidal ideation Skin exam: PRESENT: dry, intact, warm. ABSENT: cyanosis, rash Results Laboratory Results: 08/12/17 05:30 08/15/17 05:55 08/15/17 05:55 Sodium 143.4 Potassium 4.1 Chloride 106 Carbon Dioxide 27 Anion Gap 10 BUN 9 Creatinine 0.73 Est GFR ( Amer) > 60 Est GFR (Non-Af Amer) > 60 Glucose 98 Calcium 9.9 Lipase 799.0 H Impressions: Abdomen/Pelvis CT 08/08/17 00:00 IMPRESSION: CHANGES COMPATIBLE WITH ACUTE PANCREATITIS. MINIMAL ASCITES. THERE IS THICKENING OF THE MUCOSA OF THE DESCENDING COLON. THE POSSIBILITY OF COLITIS CANNOT BE EXCLUDED. Qualifiers - * PATIENT BEING DISCHARGED WITH ANY OF THE FOLLOWING DIAGNOSIS: No Plan Discharge Plan: [facility] Advice patient to bring the prescriptions Ayesha can be placed on medication program to receive his medications for free Time Spent: Greater than 30 Minutes
[2017-08-15 09:21] VITALS: BP 155/98
[2017-08-15] MEDS: FAMOTIDINE INJ/PF 20 MG/2 ML SDV IV SCH (10:06)
[2017-08-15] MEDS: ENOXAPARIN SODIUM INJ 40 MG/0.4 ML DISP.SYRIN SUBCUT SCH (10:06)
[2017-08-15] MEDS: NICOTINE 21 MG/24 HR PATCH.TD24 TD SCH (10:06)
== END 2017-08-15 11:46 | disposition home or self-care (01) | DRG 440 ==
LOC: ER 12:13 → EH 14:35 → 4N 15:44 → 2N 08-14 13:42 → 4N 08-14 14:04 → 2N 08-14 15:30
PROVIDERS: ADMIT Internal Medicine; ATTEND Internal Medicine
DX: K85.20 Alcohol induced acute pancreatitis without necrosis or infection (principal); K86.0 Alcohol-induced chronic pancreatitis; F10.20 Alcohol dependence, uncomplicated; F17.210 Nicotine dependence, cigarettes, uncomplicated; Z63.72 Alcoholism and drug addiction in family
CPT/HCPCS: 36415; 74177; 80048; 80053; 80069; 80307; 83540; 83690; 83735; 84100; 84443; 85025; 85027; 99285; J1170; J1650; J2405; J7030; S0028

== ENCOUNTER 2017-12-05 21:24 | Emergency (ER) | payer OTHER ==
--- NOTE | 2017-12-05 23:37 | ER Document Report ---
ED Oral Problem - General Chief Complaint: Toothache Stated Complaint: TOOTHACHE Time Seen by Provider: 12/05/17 23:36 Mode of Arrival: Ambulatory Information source: Patient TRAVEL OUTSIDE OF THE [place] IN LAST 30 DAYS: No - HPI Patient complains to provider of: Toothache Onset: Yesterday Onset: Gradual Quality of pain: Achy, Dull Severity: Moderate Pain Level: 4 Associated symptoms: None Worsened by: Nothing Relieved by: Nothing Similar symptoms previously: No Recently seen / treated by doctor/dentist: No - Related Data Allergies/Adverse Reactions: No Known Allergies Allergy (Verified 05/26/17 12:00) Past Medical History - Social History Smoking Status: Unknown if Ever Smoked Family History: Reviewed & Not Pertinent, Other - Alcoholism Endocrine Medical History: Denies: Hx Diabetes Mellitus Type 1, Hx Diabetes Mellitus Type 2 Renal/ Medical History: Denies: Hx Peritoneal Dialysis Psychiatric Medical History: Denies: Hx Depression - Immunizations Hx Diphtheria, Pertussis, Tetanus Vaccination: Yes Review of Systems - Review of Systems Constitutional: denies: Chills, Fever EENT: denies: Eye pain, Eye discharge Cardiovascular: No symptoms reported Respiratory: denies: Cough, Short of breath Gastrointestinal: denies: Abdominal pain, Diarrhea, Nausea, Vomiting Genitourinary: No symptoms reported Male Genitourinary: No symptoms reported Musculoskeletal: No symptoms reported Skin: No symptoms reported Hematologic/Lymphatic: No symptoms reported Neurological/Psychological: No symptoms reported -: Yes All other systems reviewed and negative Physical Exam - Vital signs Vitals: Temp Pulse Resp BP Pulse Ox 97.9 F 69 16 119/75 69 L 12/05/17 22:11 12/05/17 22:11 12/05/17 22:11 12/05/17 22:11 12/05/17 22:11 - General General appearance: Appears well, Alert In distress: None - HEENT Head: Normocephalic, Atraumatic Eyes: Normal Pupils: PERRL Sinus: Normal Nasal: Normal Mouth/Lips: Normal Mucous membranes: Normal Teeth diagram: 1 - Dental decay Pharynx: Normal Neck: Normal - Respiratory Respiratory status: No respiratory distress Chest status: Nontender Breath sounds: Normal Chest palpation: Normal - Cardiovascular Rhythm: Regular Heart sounds: Normal auscultation Murmur: No - Abdominal Inspection: Normal Distension: No distension Bowel sounds: Normal Tenderness: Nontender Organomegaly: No organomegaly - Back Back: Normal, Nontender - Extremities General upper extremity: Normal inspection, Nontender, Normal color, Normal ROM , Normal temperature General lower extremity: Normal inspection, Nontender, Normal color, Normal ROM , Normal temperature, Normal weight bearing. No: Krishna's sign - Neurological Neuro grossly intact: Yes Cognition: Normal Orientation: AAOx4 Yadira Coma Scale Eye Opening: Spontaneous [place] Coma Scale Verbal: Oriented [place] Coma Scale Motor: Obeys Commands Yadira Coma Scale Total: 15 Speech: Normal Motor strength normal: LUE, RUE, LLE, RLE Sensory: Normal - Psychological Associated symptoms: Normal affect, Normal mood - Skin Skin Temperature: Warm Skin Moisture: Dry Skin Color: Normal Course - Vital Signs Vital signs: Temp Pulse Resp BP Pulse Ox 97.9 F 69 16 119/75 69 L 12/05/17 22:11 12/05/17 22:11 12/05/17 22:11 12/05/17 22:11 12/05/17 22:11 - Transfer of Care Notes: 12/06/17 00:26 Dental caries. Discharge - Discharge Clinical Impression: Dental caries, Toothache Condition: Stable Disposition: HOME, SELF-CARE Instructions: Dental Infection or Abscess ([facility]), Toothache ([facility]) Additional Instructions: Please follow-up with a dentist for further evaluation and management of your tooth decay. Return to the emergency room if her condition worsens. Prescriptions: Clindamycin HCl 300 mg PO TID #30 capsule Hydrocodone/Acetaminophen [[place] 5-325 mg Tablet] 1 tab PO BID PRN #6 tablet PRN Reason: Pain Scale Of 5 Ibuprofen [Motrin 600 mg Tablet] 600 mg PO TID PRN #20 tablet PRN Reason: Pain Scale Of 3 Forms: Return to Work Referrals: BRET BARAHONA DDS [NO LOCAL MD] - Follow up as needed
[2017-12-05] MEDS ORDERED: CLINDAMYCIN HCL 150 MG CAPSULE PO ONE (23:43)
[2017-12-05] MEDS ORDERED: HYDROCODONE/ACETAMINOPHEN 5-325 MG TABLET PO ONE (23:44)
[2017-12-06 00:31] VITALS: BP 144/90
== END 2017-12-06 00:31 | disposition home or self-care (01) ==
LOC: ER 21:24
DX: K02.9 Dental caries, unspecified (principal); K08.89 Other specified disorders of teeth and supporting structures
CPT/HCPCS: 99282

== ENCOUNTER 2017-12-30 08:28 | Emergency (ER) | payer OTHER ==
[2017-12-30] MEDS ORDERED: ONDANSETRON HCL INJ/PF 4 MG/2 ML SDV IV ONE (08:38)
[2017-12-30] MEDS ORDERED: NORMAL SALINE 1000 ML 1,000 ML IV ONE (08:38)
[2017-12-30 09:01] LABS: APPEARANCE,URINE CLEAR; BILIRUBIN,URINE NEGATIVE (NEGATIVE); COLOR,URINE STRAW; GLUCOSE, URINE NEGATIVE (NEGATIVE); KETONES,URINE NEGATIVE (NEGATIVE); LEUKOCYTE ESTERASE,URINE NEGATIVE (NEGATIVE); NITRITE,URINE NEGATIVE (NEGATIVE); PROTEIN,URINE NEGATIVE (NEGATIVE); URINE SPECIFIC GRAVITY 1.006; UROBILINOGEN,URINE NEGATIVE mg/dL (<2.0)
[2017-12-30] MEDS ORDERED: KETOROLAC TROMETHAMINE INJ/PF 30 MG/1 ML SDV IV ONE (09:02)
[2017-12-30 09:06] LABS: ABSOLUTE EOSINOPHILS # (AUTO) 0.1 10^3/uL (0.0-0.6); ABSOLUTE MONOCYTES (AUTO) 0.6 10^3/uL (0.1-1.4); BASOPHILS % (AUTO) 0.9 % (0-2); EOSINOPHILS % (AUTO) 2.1 % (0-6); HEMATOCRIT 42.4 % (37.9-51.0); HEMOGLOBIN 13.8 g/dL (13.5-17.0); LYMPHOCYTES % (AUTO) 41.5 % (13-45); MEAN CORPUSCULAR HEMOGLOBIN 26.1 pg (27.0-33.4); MEAN CORPUSCULAR HGB CONC 32.5 g/dL (32.0-36.0); MEAN CORPUSCULAR VOLUME 80 fl (80-97); MONOCYTES % (AUTO) 12.8 % (3-13); PLATELET COUNT 338 10^3/uL (150-450); RED BLOOD COUNT 5.28 10^6/uL (4.35-5.55); SEGMENTED NEUTROPHILS % (AUTO) 42.7 % (42-78); TOTAL CELLS COUNTED % (AUTO) 100 %; WHITE BLOOD COUNT 4.7 10^3/uL (4.0-10.5)
[2017-12-30 09:34] LABS: ALANINE AMINOTRANSFERASE 33 U/L (21-72); ALBUMIN 4.4 g/dL (3.5-5.0); ALKALINE PHOSPHATASE 60 U/L (38-126); ANION GAP 9 (5-19); ASPARTATE AMINO TRANSFERASE 51 U/L (17-59); BILIRUBIN,DIRECT 0.3 mg/dL (0.0-0.4); BILIRUBIN,TOTAL 0.3 mg/dL (0.2-1.3); BLOOD UREA NITROGEN 9 mg/dL (7-20); CALCIUM 9.3 mg/dL (8.4-10.2); CARBON DIOXIDE 32 mmol/L (22-30); CHLORIDE 104 mmol/L (98-107); GLUCOSE 99 mg/dL (75-110); LIPASE 117.7 U/L (23-300); POTASSIUM 4.5 mmol/L (3.6-5.0); SODIUM 145.2 mmol/L (137-145)
--- NOTE | 2017-12-30 10:27 | ER Document Report ---
ED General - General Chief Complaint: Abdominal Pain Stated Complaint: ABDOMINAL PAIN Time Seen by Provider: 12/30/17 08:37 Mode of Arrival: Ambulatory Information source: Patient Notes: Patient is a 22-year-old male who presents with chief complaint of upper abdominal pain. Patient reports he thinks he has pancreatitis. Patient states he drank 6 beers last night and now has pain. Patient denies any fever, vomiting or diarrhea, reports nausea. TRAVEL OUTSIDE OF THE [place] IN LAST 30 DAYS: No - Related Data Allergies/Adverse Reactions: No Known Allergies Allergy (Verified 12/30/17 08:28) Past Medical History - General Information source: Patient - Social History Smoking Status: Current Every Day Smoker Chew tobacco use (# tins/day): No Frequency of alcohol use: Social Drug Abuse: None Family History: Reviewed & Not Pertinent, Other - Alcoholism Patient has suicidal ideation: No Patient has homicidal ideation: No Endocrine Medical History: Denies: Hx Diabetes Mellitus Type 1, Hx Diabetes Mellitus Type 2 Renal/ Medical History: Denies: Hx Peritoneal Dialysis GI Medical History: Reports: Hx Pancreatitis Psychiatric Medical History: Denies: Hx Depression Surgical Hx: Negative - Immunizations Hx Diphtheria, Pertussis, Tetanus Vaccination: Yes Review of Systems - Review of Systems Gastrointestinal: Abdominal pain, Nausea -: Yes All other systems reviewed and negative Physical Exam - Vital signs Vitals: Temp Pulse Resp BP Pulse Ox 97.6 F 69 14 144/100 H 100 12/30/17 08:33 12/30/17 08:33 12/30/17 08:33 12/30/17 08:33 12/30/17 08:33 - Notes Notes: PHYSICAL EXAMINATION: GENERAL: Well-appearing, well-nourished and in no acute distress. HEAD: Atraumatic, normocephalic. EYES: Pupils equal round and reactive to light, extraocular movements intact, sclera anicteric, conjunctiva are normal. ENT: Nares patent, oropharynx clear without exudates. Moist mucous membranes. NECK: Normal range of motion, supple without lymphadenopathy LUNGS: Breath sounds clear to auscultation bilaterally and equal. No wheezes rales or rhonchi. HEART: Regular rate and rhythm without murmurs ABDOMEN: Soft, nontender, nondistended abdomen. No guarding, no rebound. No masses appreciated. Musculoskeletal: Normal range of motion, no pitting or edema. No cyanosis. NEUROLOGICAL: Cranial nerves grossly intact. Normal speech, normal gait. Normal sensory, motor exams PSYCH: Normal mood, normal affect. SKIN: Warm, Dry, normal turgor, no rashes or lesions noted. Course - Re-evaluation Re-evalutation: 12/30/17 10:24 CBC, CMP, lipase are all unremarkable. Patient's symptoms have resolved after 1 L of normal saline as well as IV Zofran. Patient's abdomen soft, nontender no acute distress noted patient will be discharged home in stable condition at this time. - Vital Signs Vital signs: Temp Pulse Resp BP Pulse Ox 97.6 F 69 14 144/100 H 100 12/30/17 08:33 12/30/17 08:33 12/30/17 08:33 12/30/17 08:33 12/30/17 08:33 - Laboratory Result Diagrams: 12/30/17 08:59 12/30/17 08:59 Laboratory results interpreted by me: 12/30/17 12/30/17 08:59 08:59 MCH 26.1 L RDW 15.0 H Sodium 145.2 H Carbon Dioxide 32 H Discharge - Discharge Clinical Impression: Nausea Abdominal pain Qualifiers: Abdominal location: upper abdomen, unspecified Qualified Code(s): R10.10 - Upper abdominal pain, unspecified Condition: Stable Disposition: HOME, SELF-CARE Additional Instructions: Abdominal Pain There are many causes of abdominal pain. Pain can mean a serious problem requiring surgery (such as appendicitis). It can also be an innocent problem that goes away on its own (such as a viral infection). Often, time must pass to determine the cause of pain. The physician does not feel that hospitalization is necessary, at present. Things may change within the next 24 hours. Call the doctor or come back for re- examination if any problems occur, such as: (1) Pain that becomes more severe, steady, or becomes concentrated in one specific area. Also, pain that is more severe with movement or coughing. (2) Vomiting that persists or becomes more frequent. (3) Blood in the vomitus, urine, or bowel movements. Blood in the stool may have a tarry or black appearance. (4) Shaking chills or fever greater than 100 degrees F. (5) The abdomen becomes more distended or swollen. (6) Bowel movements cease. (7) Failure to improve as expected. Your workup today was normal. Please return to the emergency department if you develop any of the above symptoms. Take the Zofran as needed for nausea. Prescriptions: Ondansetron [Zofran Odt 4 mg Tablet] 1 - 2 tab PO Q4H PRN #15 tab.rapdis PRN Reason: For Nausea/Vomiting
[2017-12-30 12:06] VITALS: BP 102/54
== END 2017-12-30 12:10 | disposition home or self-care (01) ==
LOC: ER 08:28
DX: R10.10 Upper abdominal pain, unspecified (principal); R11.0 Nausea; F17.200 Nicotine dependence, unspecified, uncomplicated; Z87.19 Personal history of other diseases of the digestive system
CPT/HCPCS: 99284; 96361; 96374; 36415; 83690; 85025; 80053; 81001; J1885; J2405

== ENCOUNTER 2018-01-26 21:17 | Emergency (ER) | payer OTHER ==
[2018-01-26 21:29] VITALS: BP 143/94
[2018-01-26] MEDS ORDERED: LIDOCAINE 1% INJ-PF (10 MG/ML) 30 ML SDV INJ ONE (21:34)
--- NOTE | 2018-01-26 21:36 | ER Document Report ---
ED Hand/Wrist Injury - General Chief Complaint: Laceration Stated Complaint: FINGER INJURY Time Seen by Provider: 01/26/18 21:30 Mode of Arrival: Ambulatory Information source: Patient Notes: 22-year-old male presents to ED for complaint of laceration to his right middle finger. He states he was trying to cook his girlfriend some states when he cut himself with a bedspread inspector knife. Bleeding is under control. He does not know when his last tetanus was. Patient states he had been drinking his smoking and smoking pot tonight. Patient is alert and oriented answering questions appropriately respirations regular and unlabored speaking in full sentences. TRAVEL OUTSIDE OF THE [place] IN LAST 30 DAYS: No - HPI Injury to: Middle finger Onset: Just prior to arrival Where: Home, Indoors Timing: Still present Quality of pain: Sharp Severity: Moderate Pain Level: 4 Context: Laceration - Related Data Allergies/Adverse Reactions: No Known Allergies Allergy (Verified 12/30/17 08:28) Past Medical History - General Information source: Patient - Social History Smoking Status: Current Every Day Smoker Cigarette use (# per day): Yes - 1/2 ppd Chew tobacco use (# tins/day): No Smoking Education Provided: Yes - 4 min Frequency of alcohol use: Social Drug Abuse: Marijuana Occupation: cook Lives with: Spouse/Significant other Family History: Reviewed & Not Pertinent, Other - Alcoholism Patient has suicidal ideation: No Patient has homicidal ideation: No - Past Medical History Cardiac Medical History: Reports: None Pulmonary Medical History: Reports: None EENT Medical History: Reports: None Neurological Medical History: Reports: None Endocrine Medical History: Reports: None Renal/ Medical History: Reports: None Malignancy Medical History: Reports None GI Medical History: Reports: Hx Pancreatitis Musculoskeletal Medical History: Reports None Skin Medical History: Reports None Psychiatric Medical History: Reports: None Traumatic Medical History: Reports: None Infectious Medical History: Reports: None Surgical Hx: Negative Past Surgical History: Reports: None - Immunizations Immunizations up to date: Yes Hx Diphtheria, Pertussis, Tetanus Vaccination: Yes - 01/26/2018 Review of Systems - Review of Systems Constitutional: No symptoms reported EENT: No symptoms reported Cardiovascular: No symptoms reported Respiratory: No symptoms reported Gastrointestinal: No symptoms reported Genitourinary: No symptoms reported Male Genitourinary: No symptoms reported Musculoskeletal: No symptoms reported Skin: Other - finger laceration to right 3rd finger Hematologic/Lymphatic: No symptoms reported Neurological/Psychological: No symptoms reported -: Yes All other systems reviewed and negative Physical Exam - Vital signs Vitals: Temp Pulse Resp BP Pulse Ox 97.9 F 102 H 18 143/94 H 97 01/26/18 21:28 01/26/18 21:28 01/26/18 21:28 01/26/18 21:28 01/26/18 21:28 Interpretation: Normal - General General appearance: Appears well, Alert - HEENT Head: Normocephalic, Atraumatic Eyes: Normal Pupils: PERRL - Respiratory Respiratory status: No respiratory distress Chest status: Nontender Breath sounds: Normal Chest palpation: Normal - Cardiovascular Rhythm: Regular Heart sounds: Normal auscultation Murmur: No - Abdominal Inspection: Normal Distension: No distension Bowel sounds: Normal Tenderness: Nontender Organomegaly: No organomegaly - Back Back: Normal, Nontender - Extremities General upper extremity: Normal color, Normal ROM, Normal temperature General lower extremity: Normal inspection, Nontender, Normal color, Normal ROM , Normal temperature, Normal weight bearing. No: Krishna's sign Hand: Tender, Laceration - right distal 3rd finger 1.5 cm, No evidence of human bite, No evidence of FB. No: Abrasion, Deformity, Dislocation, Ecchymosis, Instability, Nail injury, Swelling, Tendon deficit - Neurological Neuro grossly intact: Yes Cognition: Normal Orientation: AAOx4 [place]ad[place] Coma Scale Eye Opening: Spontaneous [place] Coma Scale Verbal: Oriented [place] Coma Scale Motor: Obeys Commands [place] Coma Scale Total: 15 Speech: Normal Motor strength normal: LUE, RUE, LLE, RLE Sensory: Normal - Psychological Associated symptoms: Normal affect, Normal mood - Skin Skin Temperature: Warm Skin Moisture: Dry Skin Color: Normal Skin irregularity: Laceration - right distal 3rd finger 1.5 cm Location of irregularity: Extremities - right distal 3rd finger Irregularity with: Tenderness Course - Vital Signs Vital signs: Temp Pulse Resp BP Pulse Ox 97.9 F 102 H 18 143/94 H 97 01/26/18 21:28 01/26/18 21:28 01/26/18 21:28 01/26/18 21:28 01/26/18 21:28 Procedures - Laceration/Wound Repair Right Distal Finger 3rd digit Time completed: 22:29 Wound length (cm): 1.5 Wound's Depth, Shape: Superficial, Linear Laceration pre-procedure: Sterile PPE donned, Sterile drapes applied, Shur- Clens applied Anesthetic type: 1% Lidocaine Volume Anesthetic (mLs): 4 Wound explored: Contaminated Irrigated w/ Saline (mLs): 300 Wound Repaired With: Sutures Suture Size/Type: 5:0, Ethilon Number of Sutures: 3 Layer Closure?: No Post-procedure wound care: Sterile dressing applied Post-procedure NV exam normal: Yes Complications: No Discharge - Discharge Clinical Impression: laceration right 3rd finger Condition: Stable Disposition: HOME, SELF-CARE Instructions: Family Physicians / Practices Additional Instructions: Hand Laceration A laceration on the hand can present special problems. It may be difficult to keep the wound dry. Motion of the fingers can disturb the healing edges. Your work may involve exposure to damaging chemicals or water. Keep the wound clean and dry. If you can't keep the cut dry, undisturbed, and free of chemical exposure, please discuss this with the doctor. If any water or chemical gets onto the dressing, remove it, blot the wound dry, then apply a fresh bandage. Dressings should be changed every day. If you feel the stitches pulling as you move the hand, a splint or other form of protection is needed. If any signs of infection occur (swelling, redness, increasing tenderness, red streaks, tender lumps in the armpit, or fever), see the doctor immediately. SOAP CLEANSING: Gently wash the wound daily using a mild soap (like Ivory, Phisoderm, Neutrogena). Use warm water, rubbing gently until all debris, ooze, and crusting have been washed from the wound. Allow to dry briefly (about 10 minutes) after cleaning. Repeat this cleansing at least three times a day for the first two days and then once or twice a day. ANTIBIOTIC OINTMENT PROTECTION: Your wounds are such that dressing them is not practical or optional. After cleansing, you should apply a thin coating of antibiotic ointment ( Bacitracin, not Neosporin) to the wounds at least three times daily. This lessens infection risk, and may decrease the amount of scarring. Use a q-tip or dull butter knife, not your finger, to apply this ointment. Any debris or ooze which builds up in the ointment should be gently rubbed off with a sterile gauze pad. Harder crusting may need to be gently scrubbed off with a clean wash cloth with soap and warm water, perhaps applying a warm, wet wash cloth to the wound for ten minutes first. Development of redness, severe itching, or blistering may mean allergy to the ointment. See the doctor. TETANUS IMMUNIZATION GIVEN: You have been given an immunization against tetanus. Please record this in your records. In general, a booster is needed only once every 10 years. The tetanus shot protects against tetanus or "lockjaw," which is a complication of certain wound infections (the tetanus shot cannot protect against the actual infection). The immunization site may become warm and red due to local reaction. If this occurs, apply warm compresses and take aspirin or ibuprofen to reduce inflammation and discomfort. Return for evaluation if the reaction becomes severe. FOLLOW-UP CARE: Please return in __3___ days for an infection check and dressing change. Your sutures should be removed in __8___ days. To facilitate a timely removal of your sutures, you may return to the Emergency Department at [facility]. You do not need to call for an appointment, but the best time to come in for suture removal is early in the morning. If you have been referred to another physician for follow-up care, call that physicians office for an appointment as you were instructed. If you experience a significant change in your laceration, or if you are concerned there may be an infection (swelling, redness, drainage, increasing tenderness, red streaks, tender lumps in the armpit or groin above the laceration, or fever) , return to the Emergency Department immediately re-evaluation. Forms: Elevated Blood Pressure, Smoking Cessation Education, Return to Work
== END 2018-01-26 22:20 | disposition home or self-care (01) ==
LOC: ER 21:17
PROC: 0HQFXZZ Repair Right Hand Skin, External Approach (ICD-10-PCS; principal; 2018-01-26)
DX: S61.212A Laceration without foreign body of right middle finger without damage to nail, initial encounter (principal); W26.0XXA Contact with knife, initial encounter; F17.210 Nicotine dependence, cigarettes, uncomplicated
CPT/HCPCS: 99406; 99282; 12001; J3490

== ENCOUNTER 2018-08-07 16:20 | Emergency (ER) | payer OTHER ==
[2018-08-07] MEDS ORDERED: LIDOCAINE 2% VISCOUS SOLN 20 ML UDCUP PO ONE (16:35)
[2018-08-07 16:37] VITALS: BP 131/77
--- NOTE | 2018-08-07 16:52 | ER Document Report ---
HPI - HPI Time Seen by Provider: 08/07/18 16:47 Pain Level: 5 Notes: Patient is a 22-year-old male who presents to the ED complaining of left lower dental pain #192-3 days. He has not noticed any obvious abscess or purulent discharge. Patient states that he is still able to eat and drink, but does have a decreased p.o. intake due to the pain. He has tried some [id number] meds with minimal relief. No other concerns or complaints. Denies any headache, fever, head injury, neck pain, hoarseness, drooling, URI, sore throat, chest pain, palpitations, syncope, cough, shortness of breath, wheeze, dyspnea, abdominal pain, nausea/vomiting/diarrhea, urinary retention, dysuria, hematuria, or rash. He states that he is scheduling appointment with a dentist this week. - ROS Systems Reviewed and Negative: Yes All other systems reviewed and negative - REPRODUCTIVE Reproductive: DENIES: : Past Medical History - Social History Smoking Status: Current Every Day Smoker Family History: Reviewed & Not Pertinent, Other - Alcoholism Endocrine Medical History: Denies: Hx Diabetes Mellitus Type 1, Hx Diabetes Mellitus Type 2 Renal/ Medical History: Denies: Hx Peritoneal Dialysis GI Medical History: Reports: Hx Pancreatitis Psychiatric Medical History: Denies: Hx Depression - Immunizations Immunizations up to date: Yes Hx Diphtheria, Pertussis, Tetanus Vaccination: Yes - 01/26/2018 [facility] Provider Document - CONSTITUTIONAL Agree With Documented VS: Yes Notes: PHYSICAL EXAMINATION: GENERAL: Well-appearing, well-nourished and in no acute distress. HEAD: Atraumatic, normocephalic. EYES: Pupils equal round and reactive to light, extraocular movements intact, sclera anicteric, conjunctiva are normal. ENT: EAC clear b/l. TM's intact b/l without erythema, fluid, or perforation. Nares patent and without discharge. oropharynx clear without exudates. No tonsilar hypertrophy or erythema. Moist mucous membranes. No sinus tenderness. Uvula midline. No palatine shift. No tongue protrusion. No respiratory co mpromise. Mouth: Poor dentition. + mild decay and mild gingivitis. No obvious abscess or discharge noted. No facial swelling. + tenderness to tooth #19. NECK: Normal range of motion, supple without lymphadenopathy. No rigidity/meningismus. LUNGS: Breath sounds clear to auscultation bilaterally and equal. No wheezes rales or rhonchi. HEART: Regular rate and rhythm without murmurs, rubs, gallops. NEUROLOGICAL: Cranial nerves grossly intact. Normal speech, normal gait. Normal sensory, motor exams PSYCH: Normal mood, normal affect. SKIN: Warm, Dry, normal turgor, no rashes or lesions noted. - INFECTION CONTROL TRAVEL OUTSIDE OF THE [place] IN LAST 30 DAYS: No Course - Re-evaluation Re-evalutation: 08/07/18 16:51 Patient is an afebrile, well-hydrated, 22-year-old male who presents to the ED with dental pain, suspect nerve root etiology versus infection. Vitals are acceptable. PE is otherwise unremarkable. No I&D, labs, or imaging warranted at this time based on H&P. Viscous lidocaine dispensed today. I will send him home with a prescription for penicillin. Low suspicion for any meningitis, sepsis, peritonsillar/pharyngeal abscess, respiratory compromise, Eladio's, temporal arteritis, or other emergent systemic condition at this time. Patient is aware this condition can change from initial presentation and he needs to monitor symptoms closely. Conservative measures otherwise for symptoms. Call to schedule an appointment with a dentist for further evaluation and management. Recheck with your PCM this week as well. Return to the ED with any worsening/concerning symptoms otherwise as reviewed in discharge. Patient is in agreement. - Vital Signs Vital signs: Temp Pulse Resp BP Pulse Ox 99.4 F 85 16 131/77 H 98 08/07/18 16:36 08/07/18 16:36 08/07/18 16:36 08/07/18 16:36 08/07/18 16:36 Discharge - Discharge Clinical Impression: Pain, dental Condition: Stable Disposition: HOME, SELF-CARE Instructions: Toothache ([facility]), Penicillin V K ([facility]) Additional Instructions: Gerber and floss twice daily Maintain fluid intake Take antibiotics as directed Mouthwash, salt water gargles, peroxide rinse as needed Tylenol/ibuprofen as needed Recheck with PCM this week Call today/tomorrow and schedule an appointment with your dentist for further evaluation Return to the ED with any worsening symptoms and/or development of fever, headache, facial swelling, swelling of lips/tongue/throat, trouble swallowing, drooling, hoarseness, neck pain/stiffness, chest pain, palpitations, syncope, shortness of breath, trouble breathing, abdominal pain, n/v/d, numbness/tingling, or other worsening symptoms that are concerning to you. Prescriptions: Penicillin V Potassium [Penicillin Vk 250 mg Tablet] 500 mg PO BID #40 tablet Forms: Elevated Blood Pressure, Smoking Cessation Education Referrals: [facility] [Provider Group] - Follow up as needed
== END 2018-08-07 16:59 | disposition home or self-care (01) ==
LOC: ER 16:20
DX: K08.89 Other specified disorders of teeth and supporting structures (principal); F17.200 Nicotine dependence, unspecified, uncomplicated
CPT/HCPCS: 99282; J3490

== ENCOUNTER 2018-10-11 01:44 | Emergency (ER) | payer SELFPAY ==
[2018-10-11] MEDS ORDERED: LIDOCAINE 1% INJ-PF (10 MG/ML) 30 ML SDV INJ ONE (03:49)
[2018-10-11] MEDS ORDERED: DIPH/PERTUSS(ACELL)/TETANUS VAC/PF 0.5 ML SYR (>=10YO) IM ONE (04:07)
--- NOTE | 2018-10-11 04:08 | ER Document Report ---
HPI - HPI Time Seen by Provider: 10/11/18 03:49 Pain Level: Denies Notes: Patient is a 22-year-old male presenting to the emergency department with chief complaint of laceration to his right palm near the thumb. He reports he was working on a car when he cut it on an unknown item under the padilla of the car. He reports his tetanus shot is up-to-date. He reports the laceration occurred just prior to arrival. - REPRODUCTIVE Reproductive: DENIES: : Past Medical History - General Information source: Patient - Social History Smoking Status: Never Smoker Frequency of alcohol use: None Drug Abuse: None Family History: Reviewed & Not Pertinent, Other - Alcoholism Endocrine Medical History: Denies: Hx Diabetes Mellitus Type 1, Hx Diabetes Mellitus Type 2 Renal/ Medical History: Denies: Hx Peritoneal Dialysis GI Medical History: Reports: Hx Pancreatitis Psychiatric Medical History: Denies: Hx Depression Surgical Hx: Negative - Immunizations Immunizations up to date: Yes Hx Diphtheria, Pertussis, Tetanus Vaccination: Yes - 01/26/2018 [facility] Provider Document - CONSTITUTIONAL Notes: PHYSICAL EXAMINATION: GENERAL: Well-appearing, well-nourished and in no acute distress. HEAD: Atraumatic, normocephalic. EYES: Pupils equal round extraocular movements intact, conjunctiva are normal. ENT: Nares patent NECK: Normal range of motion LUNGS: No respiratory distress Musculoskeletal: Normal range of motion NEUROLOGICAL: Normal speech, normal gait. PSYCH: Normal mood, normal affect. SKIN: Warm, Dry, normal turgor, no rashes or lesions noted. 2 cm superficial laceration noted to the palm of the hand just at the base of the first digit, approximates well, no active bleeding noted. Cap refill less than 3 seconds, normal motor and sensation distal to injury. - INFECTION CONTROL TRAVEL OUTSIDE OF THE [place] IN LAST 30 DAYS: No Course - Re-evaluation Re-evalutation: Laceration was repaired under sterile technique, see procedure note. Patient tolerated well. Patient reports Tdap up-to-date in the last 6 months. Patient discharged home in stable condition. The patient's emergency department workup and current diagnosis were explained to the patient and or family. Follow-up instructions were provided. Medications if prescribed were discussed. Instructions for when to return to the emergency department including specific worrisome symptoms were discussed with the patient and/or family. Procedures - Laceration/Wound Repair Right hand Wound length (cm): 2 Wound's Depth, Shape: Superficial, Irregular Laceration pre-procedure: Sterile PPE donned Wound explored: Clean Wound Debrided: Minimal Suture Size/Type: 4:0 Number of Sutures: 4 Discharge - Discharge Clinical Impression: Laceration Condition: Stable Disposition: HOME, SELF-CARE Additional Instructions: Laceration Care Your laceration has been sutured to keep the skin edges aligned during healing. The time of suture removal depends on the nature and location of your cut. Please follow the care instructions the doctor has outlined for you and return for further care, according to the schedule you've been given. Keep the wound and dressing clean. Unless you were told otherwise, you may shower daily, blotting the wound dry with a clean, unused towel. At other times, If the dressing gets wet or blood soaked, remove it and blot the wound dry, then reapply a new dressing. Unless you were instructed otherwise, dressings should be changed at least daily. If any signs of infection occur (swelling, redness, increasing tenderness, red streaks, tender lumps in the armpit or groin above the laceration, or fever), see the doctor immediately. Please return to the emergency department or your primary care provider in 10 days for suture removal. Please return earlier if you develop any signs of infection such as increased redness, swelling, foul-smelling drainage or fever.
[2018-10-11 04:46] VITALS: BP 126/86
== END 2018-10-11 04:25 | disposition home or self-care (01) ==
LOC: ER 01:44
DX: S61.411A Laceration without foreign body of right hand, initial encounter (principal); W26.8XXA Contact with other sharp object(s), not elsewhere classified, initial encounter
CPT/HCPCS: 99282

== ENCOUNTER 2019-01-13 07:25 | Inpatient (IN) | payer SELFPAY ==
[2019-01-13 08:01] LABS: ABSOLUTE EOSINOPHILS # (AUTO) 0.1 10^3/uL (0.0-0.6); ABSOLUTE LYMPHOCYTES (AUTO) 1.9 10^3/uL (0.5-4.7); ABSOLUTE MONOCYTES (AUTO) 0.6 10^3/uL (0.1-1.4); ABSOLUTE NEUT (AUTO) 6.5 10^3/uL (1.7-8.2); BASOPHILS % (AUTO) 0.5 % (0-2); EOSINOPHILS % (AUTO) 0.9 % (0-6); HEMATOCRIT 42.6 % (37.9-51.0); HEMOGLOBIN 13.6 g/dL (13.5-17.0); LYMPHOCYTES % (AUTO) 20.6 % (13-45); MEAN CORPUSCULAR HEMOGLOBIN 25.5 pg (27.0-33.4); MEAN CORPUSCULAR HGB CONC 31.9 g/dL (32.0-36.0); MEAN CORPUSCULAR VOLUME 80 fl (80-97); MONOCYTES % (AUTO) 6.3 % (3-13); PLATELET COUNT 314 10^3/uL (150-450); RED BLOOD COUNT 5.32 10^6/uL (4.35-5.55); RED CELL DISTRIBUTION WIDTH 15.2 % (11.5-14.0); SEGMENTED NEUTROPHILS % (AUTO) 71.7 % (42-78); TOTAL CELLS COUNTED % (AUTO) 100 %; WHITE BLOOD COUNT 9.1 10^3/uL (4.0-10.5)
[2019-01-13 08:18] LABS: BLOOD UREA NITROGEN 7 mg/dL (7-20); CALCIUM 9.6 mg/dL (8.4-10.2); CARBON DIOXIDE 28 mmol/L (22-30); CHLORIDE 104 mmol/L (98-107); GLUCOSE 106 mg/dL (75-110); POTASSIUM 4.2 mmol/L (3.6-5.0)
--- NOTE | 2019-01-13 08:22 | ER Document Report ---
ED General - General Chief Complaint: Abdominal Pain Stated Complaint: STOMACH PAIN Time Seen by Provider: 01/13/19 08:21 Information source: Patient TRAVEL OUTSIDE OF THE [place] IN LAST 30 DAYS: No - HPI Notes: 23-year-old male with a history of pancreatitis presents to the ED for complaints of abdominal pain, nausea vomiting and diarrhea for approximately the last 5 hours. States pain woke him up out of sleep. Patient states his sister was recently hospitalized for similar GI issues. Patient states that he did drink 240 alcoholic beverages yesterday. Reports he does not have a primary care provider. Has not tried any [id number] medication for his pain. Pain is 8 out of 10, throbbing aching. Denies fevers, chills, chest pain,palpitations, shortness of breath, dyspnea, hematuria,blurred vision, double vision, loss of vision, speech changes, LH, dizziness, syncope, headaches, wheezing, ST, URI, neck pain, weakness, bowel or bladder dysfunction, saddle anesthesia, numbness or tingling in bilateral upper or lower extremities equally, muscle paralysis, weakness in bilateral upper or lower extremities equally or rash. - Related Data Allergies/Adverse Reactions: No Known Allergies Allergy (Verified 01/13/19 07:39) Past Medical History - General Information source: Patient - Social History Smoking Status: Current Every Day Smoker Chew tobacco use (# tins/day): No Frequency of alcohol use: Social Drug Abuse: Marijuana Family History: Reviewed & Not Pertinent, Other - Alcoholism Patient has suicidal ideation: No Patient has homicidal ideation: No Endocrine Medical History: Denies: Hx Diabetes Mellitus Type 1, Hx Diabetes Mellitus Type 2 Renal/ Medical History: Denies: Hx Peritoneal Dialysis GI Medical History: Reports: Hx Pancreatitis Psychiatric Medical History: Denies: Hx Depression - Immunizations Immunizations up to date: Yes Hx Diphtheria, Pertussis, Tetanus Vaccination: Yes - 01/26/2018 Review of Systems - Review of Systems Notes: REVIEW OF SYSTEMS:reviewed vital signs by RN CONSTITUTIONAL : Denies fever, chills, or sweats. Denies recent illness. EENT: Denies eye, ear, throat, or mouth pain or symptoms. Denies nasal or sinus congestion or discharge. Denies throat, tongue, or mouth swelling or difficulty swallowing. CARDIOVASCULAR: Denies chest pain. Denies palpitations or racing or irregular heart beat. Denies ankle edema. RESPIRATORY: Denies cough, cold, or chest congestion. Denies shortness of breath, difficulty breathing, or wheezing. GASTROINTESTINAL: Denies blood in vomitus, stools, or per rectum. Denies black, tarry stools. Denies constipation. GENITOURINARY: Denies difficulty urinating, painful urination, burning, frequency, blood in urine, or discharge. MUSCULOSKELETAL: Denies back or neck pain or stiffness. Denies joint pain or swelling. SKIN: Denies rash, lesions or sores. HEMATOLOGIC : Denies easy bruising or bleeding. LYMPHATIC: Denies swollen, enlarged glands. NEUROLOGICAL: Denies confusion or altered mental status. Denies passing out or loss of consciousness. Denies dizziness or lightheadedness. Denies headache. Denies weakness or paralysis or loss of use of either side. Denies problems with gait or speech. Denies sensory loss, numbness, or tingling. Denies seizures. PSYCHIATRIC: Denies anxiety or stress. Denies depression, suicidal ideation, or homicidal ideation. ALL OTHER SYSTEMS REVIEWED AND NEGATIVE. Dictation was performed using [employer] Custom recognition software PHYSICAL EXAMINATION: nurse's notes and VS reviewed GENERAL: Well-appearing, well-nourished and in no acute distress. HEAD: Atraumatic, normocephalic. EYES: Pupils equal round and reactive to light, extraocular movements intact, sclera anicteric, conjunctiva are normal. ENT: Nares patent, oropharynx clear without exudates. Moist mucous membranes. NECK: Normal range of motion, supple without lymphadenopathy LUNGS: Breath sounds clear to auscultation bilaterally and equal. No wheezes rales or rhonchi. HEART: Regular rate and rhythm without murmurs ABDOMEN: Soft, nondistended abdomen. Left upper quadrant abdominal pain, epigastric pain, right upper quadrant abdominal pain no guarding, no rebound. No masses appreciated. No CVA tenderness bilaterally Musculoskeletal: Normal range of motion, no pitting or edema. No cyanosis. NEUROLOGICAL: Cranial nerves grossly intact. Normal speech, normal gait. Normal sensory, motor exams PSYCH: Normal mood, normal affect. SKIN: Warm, Dry, normal turgor, no rashes or lesions noted. Constitutional: No symptoms reported EENT: No symptoms reported Cardiovascular: No symptoms reported Respiratory: No symptoms reported Gastrointestinal: See HPI Genitourinary: No symptoms reported Male Genitourinary: No symptoms reported Musculoskeletal: No symptoms reported Skin: No symptoms reported Hematologic/Lymphatic: No symptoms reported Neurological/Psychological: No symptoms reported Physical Exam - Vital signs Vitals: Temp Pulse Resp BP Pulse Ox 98.3 F 107 H 20 153/96 H 99 01/13/19 07:31 01/13/19 07:31 01/13/19 07:31 01/13/19 07:31 01/13/19 07:31 Course - Re-evaluation Re-evalutation: 01/13/19 10:48 Afebrile slightly tachycardic due to pain otherwise vitals stable. Patient given IV fluids, Zofran pain medication for nausea. EKG negative for STEMI, no ST segment changes. Lipase came back 3113, which is 3 times above the normal limit. CBC negative for leukocytosis or anemia, CMP negative for hepatic or dysfunction, no electrolyte disturbances. She did test positive for opioids prior to giving morphine, patient does not have a known opioid prescription. Serum alcohol 143. CT abdomen pelvis with IV contrast shows a pancreatitis with a large amount of pancreatic and peripancreatic edema. There are 2 pseudocyst. Per report the larger is on the tail the pancreas and the smaller is in the head of the pancreas with hepatic steatosis. Patient given IV pain medication, vital signs have been stable, afebrile. Consulted with Bill Cowart NP at 1230, will accept patient to medical service, will go on medical floor for further e valuation and management of his pancreatitis. Patient was agreeable to this plan of care and verbalized understanding of this plan of care. 01/13/19 12:43 - Vital Signs Vital signs: Temp Pulse Resp BP Pulse Ox 98.3 F 107 H 18 151/94 H 99 01/13/19 07:31 01/13/19 07:31 01/13/19 12:00 01/13/19 11:11 01/13/19 07:31 - Laboratory Result Diagrams: 01/13/19 07:49 01/13/19 07:49 Laboratory results interpreted by me: 01/13/19 01/13/19 01/13/19 07:49 07:49 08:11 MCH 25.5 L MCHC 31.9 L RDW 15.2 H Creatine Kinase Lipase 3113.6 H Urine Blood SMALL H Salicylates < 1.0 L Acetaminophen < 10 L 01/13/19 08:55 MCH MCHC RDW Creatine Kinase 209 H Lipase Urine Blood Salicylates Acetaminophen Discharge - Discharge Clinical Impression: Acute pancreatitis, Abdominal pain Condition: Stable Disposition: ADMITTED INPATIENT Admitting Provider: Bill Cowart NP Unit Admitted: Medical Floor
[2019-01-13 08:40] LABS: APPEARANCE,URINE CLEAR; BILIRUBIN,URINE NEGATIVE (NEGATIVE); COLOR,URINE YELLOW; GLUCOSE, URINE NEGATIVE (NEGATIVE); KETONES,URINE NEGATIVE (NEGATIVE); LEUKOCYTE ESTERASE,URINE NEGATIVE (NEGATIVE); NITRITE,URINE NEGATIVE (NEGATIVE); PROTEIN,URINE NEGATIVE (NEGATIVE); URINE SPECIFIC GRAVITY 1.014; UROBILINOGEN,URINE NEGATIVE mg/dL (<2.0)
[2019-01-13] MEDS ORDERED: NORMAL SALINE 1000 ML 1,000 ML IV PRN (08:52)
[2019-01-13] MEDS ORDERED: KETOROLAC TROMETHAMINE INJ/PF 30 MG/1 ML SDV IV ONE (08:53)
[2019-01-13] MEDS ORDERED: ONDANSETRON HCL INJ/PF 4 MG/2 ML SDV IV ONE (08:53)
[2019-01-13] MEDS ORDERED: LIDOCAINE 2% VISCOUS SOLN 20 ML UDCUP PO ONE (08:53)
[2019-01-13] MEDS ORDERED: METOCLOPRAMIDE HCL ORAL SOLN 10 MG/10 ML UDCUP PO ONE (08:55)
[2019-01-13] MEDS ORDERED: MAG HYDROX/AL HYDROX/SIMETH SUSP 30 ML UDCUP PO ONE (08:55)
[2019-01-13 08:59] LABS: ALBUMIN 4.2 g/dL (3.5-5.0); ALKALINE PHOSPHATASE 85 U/L (38-126); ANION GAP 10 (5-19); ASPARTATE AMINO TRANSFERASE 55 U/L (17-59); BILIRUBIN,DIRECT 0.1 mg/dL (0.0-0.4); BILIRUBIN,TOTAL 0.4 mg/dL (0.2-1.3); TOTAL PROTEIN 7.3 g/dL (6.3-8.2)
[2019-01-13 09:14] LABS: CREATINE KINASE 209 U/L (55-170)
[2019-01-13 09:15] LABS: ALCOHOL 143 mg/dL (NONE DETECTED)
[2019-01-13 09:23] LABS: ACETAMINOPHEN < 10 ug/mL (10-30); SALICYLATE < 1.0 mg/dL (2.0-20.0)
[2019-01-13 09:28] LABS: CREATINE KINASE MB 1.07 ng/mL (<4.55)
[2019-01-13 09:28] LABS: URINE AMPHETAMINES SCREEN NEGATIVE; URINE BARBITURATES SCREEN NEGATIVE; URINE BENZODIAZEPINES SCREEN NEGATIVE; URINE COCAINE SCREEN NEGATIVE; URINE MARIJUANA (THC) SCREEN NEGATIVE; URINE METHADONE SCREEN NEGATIVE; URINE PHENCYCLIDINE SCREEN NEGATIVE
[2019-01-13 09:32] LABS: TROPONIN I < 0.012 ng/mL
[2019-01-13] MEDS ORDERED: MORPHINE SULFATE 10 MG/ML INJ IV ONE (10:49)
[2019-01-13] MEDS ORDERED: ACETAMINOPHEN 325 MG TABLET PO ONE (12:04)
--- NOTE | 2019-01-13 12:16 | RADIOLOGY REPORT (SQ) ---
EXAM DESCRIPTION: CHEST 2 VIEWS COMPLETED DATE/TIME: 01/13/2019 12:04 pm REASON FOR STUDY: epigastric pain, RUQ, LUQ COMPARISON: None. EXAM PARAMETERS: NUMBER OF VIEWS: two views TECHNIQUE: Digital Frontal and Lateral radiographic views of the chest acquired. RADIATION DOSE: NA LIMITATIONS: none FINDINGS: LUNGS AND PLEURA: No opacities, masses or pneumothorax. No pleural effusion. MEDIASTINUM AND HILAR STRUCTURES: No masses or contour abnormalities. HEART AND VASCULAR STRUCTURES: Heart normal size. No evidence for failure. BONES: No acute findings. HARDWARE: None in the chest. OTHER: No other significant finding. IMPRESSION: NO ACUTE RADIOGRAPHIC FINDING IN THE CHEST. TECHNICAL DOCUMENTATION: JOB ID: [id number] [employer]- All Rights Reserved Reading location - IP/workstation name: [email or web address]
--- NOTE | 2019-01-13 12:16 | RADIOLOGY REPORT (SQ) ---
EXAM DESCRIPTION: CT ABD/PELVIS WITH IV ONLY COMPLETED DATE/TIME: 01/13/2019 11:54 am REASON FOR STUDY: epigastric, RUQ, LUQ abd pain, n/v COMPARISON: 08/08/2017 TECHNIQUE: CT scan of the abdomen and pelvis performed using helical scanning technique with dynamic intravenous contrast injection. No oral contrast. Images reviewed with lung, soft tissue, and bone windows. Reconstructed coronal and sagittal MPR images reviewed. Delayed images for evaluation of the urinary system also acquired. All images stored on PACS. All CT scanners at this facility use dose modulation, iterative reconstruction, and/or weight based d osing when appropriate to reduce radiation dose to as low as reasonably achievable (ALARA). [facility]: Dose Right [facility]: CareDose [facility]: Dose Right [facility]: Teradose 4D [facility]: On The Net Yet CONTRAST TYPE AND DOSE: contrast/concentration: Isovue 350.00 mg/ml; Total Contrast Delivered: 73.0 ml; Total Saline Delivered: 66.0 ml RENAL FUNCTION: BUN 7 creatinine 0.97 RADIATION DOSE: CT Rad equipment meets quality standard of care and radiation dose reduction techniq ues were employed. CTDIvol: 4.9 - 5.7 mGy. DLP: 579 mGy-cm.. LIMITATIONS: None. FINDINGS: LOWER CHEST: No significant findings. No nodules or infiltrates. LIVER: The liver is diffusely hypoattenuating. There is no mass. There is no ductal dilatation. SPLEEN: Normal size. No focal lesions. PANCREAS: Marked pancreatic and peripancreatic edema. There is fluid around the pancreas. There is a well defined circumscribed fluid collection associated with the tail of the pancreas that measures 5.4 cm. There is a small fluid collection in the region of the uncinate process that measures 22 mm. GALLBLADDER: Not identified. ADRENAL GLANDS: No significant masses or asymmetry. RIGHT KIDNEY AND URETER: No solid masses. No significant calcifications. No hydronephrosis or hyd roureter. LEFT KIDNEY AND URETER: No solid masses. No significant calcifications. No hydronephrosis or hydr oureter. AORTA AND VESSELS: No aneurysm. No dissection. Renal arteries, SMA, celiac without stenosis. RETROPERITONEUM: No retroperitoneal adenopathy, hemorrhage or masses. BOWEL AND PERITONEAL CAVITY: No masses or inflammatory changes. No free fluid or peritoneal masses. APPENDIX: Normal. PELVIS: The small amount of free fluid. Urinary bladder is normal. No pelvic mass. ABDOMINAL WALL: No masses. No hernias. BONES: No significant or acute findings. OTHER: No other significant finding. IMPRESSION: 1. Acute pancreatitis with a large amount pancreatic and peripancreatic edema. There a re 2 pseudocysts. The larger is in the tail of the pancreas and the smaller in the head of the pancr eas. 2. Hepatic steatosis. TECHNICAL DOCUMENTATION: JOB ID: [id number] Quality ID # [id number]: Final reports with documentation of one or more dose reduction techniques (e.g., Au tomated exposure control, adjustment of the mA and/or kV according to patient size, use of iterative reconstruction technique) 2010 [employer]- All Rights Reserved Reading location - IP/workstation name: [email or web address]
[2019-01-13] MEDS ORDERED: ONDANSETRON HCL INJ/PF 4 MG/2 ML SDV IV PRN (12:41)
[2019-01-13] MEDS ORDERED: LORAZEPAM INJ 2 MG/1 ML VIAL IV PRN (12:46)
--- NOTE | 2019-01-13 12:52 | PDOC H&P ---
History of Present Illness Admission Date/PCP: 01/13/2019- No primary care Patient complains of: Abdominal pain History of Present Illness: LEVI POP is a 23 year old male Past Medical History Medical History: None Cardiac Medical History: Reports: None Pulmonary Medical History: Reports: None EENT Medical History: Reports: None Neurological Medical History: Reports: None Endocrine Medical History: Reports: None Denies: Diabetes Mellitus Type 1, Diabetes Mellitus Type 2 Renal/ Medical History: Reports: None Malignancy Medical History: Reports: None GI Medical History: Reports: None Musculoskeltal Medical History: Reports: None Skin Medical History: Reports: None Psychiatric Medical History: Reports: None Denies: Depression Traumatic Medical History: Reports: None Hematology: Reports: None Infectious Medical History: Reports: None Past Surgical History Past Surgical History: Reports: None Social History Information Source: Patient Lives with: Family Smoking Status: Current Every Day Smoker Cigarettes Packs Per Day: 5 Electronic Cigarette use?: No Frequency of Alcohol Use: Heavy Hx Recreational Drug Use: Yes - Marijuana Drugs: Marijuana, Other - Denies IV drug use Hx Prescription Drug Abuse: No - Advance Directive Resuscitation Status: Full Code Family History Family History: Other - Alcoholism Parental Family History Reviewed: Yes Children Family History Reviewed: Yes Sibling(s) Family History Reviewed.: Yes Medication/Allergy Home Medications: No Home Medications 01/13/19 Allergies/Adverse Reactions: No Known Allergies Allergy (Verified 01/13/19 07:39) Review of Systems Constitutional: ABSENT: chills, fever(s), headache(s), weight gain, weight loss Eyes: ABSENT: visual disturbances Ears: ABSENT: hearing changes Cardiovascular: ABSENT: chest pain, dyspnea on exertion, edema, orthropnea, palpitations Respiratory: ABSENT: cough, hemoptysis Gastrointestinal: PRESENT: abdominal pain, nausea, vomiting. ABSENT: constipation, diarrhea, hematemesis, hematochezia Genitourinary: ABSENT: dysuria, hematuria Musculoskeletal: ABSENT: joint swelling Integumentary: ABSENT: rash, wounds Neurological: ABSENT: abnormal gait, abnormal speech, confusion, dizziness, focal weakness, syncope Psychiatric: ABSENT: anxiety, depression, homidical ideation, suicidal ideation Endocrine: ABSENT: cold intolerance, heat intolerance, polydipsia, polyuria Hematologic/Lymphatic: ABSENT: easy bleeding, easy bruising Physical Exam Vital Signs: Temp Pulse Resp BP Pulse Ox 98.3 F 107 H 18 151/94 H 99 01/13/19 07:31 01/13/19 07:31 01/13/19 12:00 01/13/19 11:11 01/13/19 07:31 Intake & Output 01/12/19 01/13/19 01/14/19 06:59 06:59 06:59 Intake Total 1000 Balance 1000 Weight 64.2 kg General appearance: PRESENT: no acute distress, well-developed, well-nourished Head exam: PRESENT: atraumatic, normocephalic Eye exam: PRESENT: conjunctiva pink, EOMI, PERRLA. ABSENT: scleral icterus Ear exam: PRESENT: normal external ear exam Mouth exam: PRESENT: moist, tongue midline Neck exam: ABSENT: carotid bruit, JVD, lymphadenopathy, thyromegaly Respiratory exam: PRESENT: clear to auscultation kev. ABSENT: rales, rhonchi, wheezes Cardiovascular exam: PRESENT: RRR. ABSENT: diastolic murmur, rubs, systolic murmur Pulses: PRESENT: normal dorsalis pedis pul Vascular exam: PRESENT: normal capillary refill GI/Abdominal exam: PRESENT: normal bowel sounds, soft, tenderness. ABSENT: distended, guarding, mass, organolmegaly, rebound Rectal exam: PRESENT: deferred Extremities exam: PRESENT: full ROM. ABSENT: calf tenderness, clubbing, pedal edema Neurological exam: PRESENT: alert, awake, oriented to person, oriented to place, oriented to time, oriented to situation, CN II-XII grossly intact. ABSENT: motor sensory deficit Psychiatric exam: PRESENT: appropriate affect, normal mood. ABSENT: homicidal ideation, suicidal ideation Skin exam: PRESENT: dry, intact, warm. ABSENT: cyanosis, rash Results Laboratory Results: 01/13/19 07:49 01/13/19 07:49 01/13/19 01/13/19 01/13/19 07:49 07:49 07:49 WBC 9.1 RBC 5.32 Hgb 13.6 Hct 42.6 MCV 80 MCH 25.5 L MCHC 31.9 L RDW 15.2 H Plt Count 314 Seg Neutrophils % 71.7 Sodium 141.6 Potassium 4.2 Chloride 104 Carbon Dioxide 28 Anion Gap 10 BUN 7 Creatinine 0.97 Est GFR ( Amer) > 60 Glucose 106 Calcium 9.6 Total Bilirubin 0.4 AST 55 Alkaline Phosphatase 85 Total Protein 7.3 Albumin 4.2 Lipase 3113.6 H Urine Color Urine Appearance Urine pH Ur Specific [place] Urine Protein Urine Glucose (UA) Urine Ketones Urine Blood Urine Nitrite Ur Leukocyte Esterase Urine WBC (Auto) Urine RBC (Auto) 01/13/19 08:11 WBC RBC Hgb Hct MCV MCH MCHC RDW Plt Count Seg Neutrophils % Sodium Potassium Chloride Carbon Dioxide Anion Gap BUN Creatinine Est GFR ( Amer) Glucose Calcium Total Bilirubin AST Alkaline Phosphatase Total Protein Albumin Lipase Urine Color YELLOW Urine Appearance CLEAR Urine pH 5.0 Ur Specific [place] 1.014 Urine Protein NEGATIVE Urine Glucose (UA) NEGATIVE Urine Ketones NEGATIVE Urine Blood SMALL H Urine Nitrite NEGATIVE Ur Leukocyte Esterase NEGATIVE Urine WBC (Auto) 1 Urine RBC (Auto) 0 01/13/19 01/13/19 08:55 08:55 Creatine Kinase 209 H CK-MB (CK-2) 1.07 Troponin I < 0.012 Impressions: Abdomen/Pelvis CT 01/13/19 08:51 IMPRESSION: 1. Acute pancreatitis with a large amount pancreatic and peripancreatic edema. There are 2 pseudocysts. The larger is in the tail of the pancreas and the smaller in the head of the pancreas. 2. Hepatic steatosis. Chest X-Ray 01/13/19 08:51 IMPRESSION: NO ACUTE RADIOGRAPHIC FINDING IN THE CHEST. Assessment and Plan - Diagnosis (1) Acute alcoholic pancreatitis Qualifiers: Is this a current diagnosis for this admission?: Yes Plan: 01/13/2019-admit to medical surgical. N.p.o. Normal saline at 175 mL/h. Repeat lipase in the a.m. Dilaudid 1 mg IV every 2 hours as needed pain. (2) Abdominal pain Is this a current diagnosis for this admission?: Yes Plan: 01/13/2019-Dilaudid 1 mg IV every 2 hours. PRN (3) Alcohol abuse Is this a current diagnosis for this admission?: Yes Plan: 01/13/2019-Ativan 1 mg IV every 4 hours as needed. Will give patient banana bag IV daily (4) Cigarette smoker Is this a current diagnosis for this admission?: Yes Plan: 2018-continue to educate on importance of smoking cessation - Time Time Spent with patient: 35 or more minutes
[2019-01-13] MEDS: HYDROMORPHONE HCL INJ/PF 2 MG/ML AMPULE IV PRN ×5 (13:22→23:36)
[2019-01-13] MEDS: NORMAL SALINE 1000 ML 1,000 ML IV PRN (16:31)
[2019-01-13] MEDS ORDERED: INFLUENZA QUAD (6MOS+) 2019-20 VAC 0.5 ML SYR IM ONE (16:45)
[2019-01-13] MEDS: NORMAL SALINE 1000 ML 1,000 ML with THIAMINE HCL 100 MG, MVI, ADULT NO.1 WITH VIT K 10 ML IV SCH ×3 (18:25)
[2019-01-13] MEDS: DIAZEPAM INJ 10 MG/2 ML DISP.SYRIN IV SCH ×2 (18:25→23:53)
[2019-01-14] MEDS: HYDROMORPHONE HCL INJ/PF 2 MG/ML AMPULE IV PRN ×10 (01:43→23:23)
[2019-01-14] MEDS: NORMAL SALINE 1000 ML 1,000 ML IV PRN ×4 (04:12→20:59)
[2019-01-14] MEDS: DIAZEPAM INJ 10 MG/2 ML DISP.SYRIN IV SCH ×3 (05:59→18:12)
[2019-01-14 06:14] LABS: ABSOLUTE MONOCYTES (AUTO) 0.6 10^3/uL (0.1-1.4); ABSOLUTE NEUT (AUTO) 5.2 10^3/uL (1.7-8.2); BASOPHILS % (AUTO) 0.2 % (0-2); EOSINOPHILS % (AUTO) 0.7 % (0-6); HEMATOCRIT 37.8 % (37.9-51.0); HEMOGLOBIN 12.1 g/dL (13.5-17.0); LYMPHOCYTES % (AUTO) 14.8 % (13-45); MEAN CORPUSCULAR HEMOGLOBIN 25.6 pg (27.0-33.4); MEAN CORPUSCULAR HGB CONC 32.1 g/dL (32.0-36.0); MEAN CORPUSCULAR VOLUME 80 fl (80-97); MONOCYTES % (AUTO) 8.7 % (3-13); PLATELET COUNT 149 10^3/uL (150-450); RED BLOOD COUNT 4.74 10^6/uL (4.35-5.55); SEGMENTED NEUTROPHILS % (AUTO) 75.6 % (42-78); TOTAL CELLS COUNTED % (AUTO) 100 %; WHITE BLOOD COUNT 6.9 10^3/uL (4.0-10.5)
[2019-01-14 06:37] LABS: ANION GAP 7 (5-19); BLOOD UREA NITROGEN 12 mg/dL (7-20); CALCIUM 8.7 mg/dL (8.4-10.2); CARBON DIOXIDE 28 mmol/L (22-30); CHLORIDE 100 mmol/L (98-107); GLUCOSE 80 mg/dL (75-110); PHOSPHORUS 3.4 mg/dL (2.5-4.5); POTASSIUM 4.1 mmol/L (3.6-5.0)
--- NOTE | 2019-01-14 07:15 | EKG REPORT ---
SEVERITY:- OTHERWISE NORMAL ECG - SINUS TACHYCARDIA ST ELEV, PROBABLE NORMAL EARLY REPOL PATTERN : Confirmed by: Elkin Jansen 14-Jan-2019 07:14:44
[2019-01-14] MEDS ORDERED: DIAZEPAM INJ 10 MG/2 ML DISP.SYRIN IV ONE (08:30)
--- NOTE | 2019-01-14 08:44 | PDOC PROGRESS REPORT ---
Subjective Progress Note for:: 01/14/19 Subjective:: 01/14/2019-continued abdominal pain Reason For Visit: ACUTE PANCREATITIS Physical Exam Vital Signs: Temp Pulse Resp BP Pulse Ox 98.5 F 61 20 148/92 H 95 01/13/19 16:30 01/14/19 04:37 01/13/19 16:30 01/14/19 04:37 01/14/19 04:37 Intake & Output 01/13/19 01/14/19 01/15/19 06:59 06:59 06:59 Intake Total 3011 Balance 3011 Weight 65.5 kg General appearance: PRESENT: no acute distress, well-developed, well-nourished Head exam: PRESENT: atraumatic, normocephalic Eye exam: PRESENT: conjunctiva pink, EOMI, PERRLA. ABSENT: scleral icterus Ear exam: PRESENT: normal external ear exam Mouth exam: PRESENT: moist, tongue midline Neck exam: ABSENT: carotid bruit, JVD, lymphadenopathy, thyromegaly Respiratory exam: PRESENT: clear to auscultation kev. ABSENT: rales, rhonchi, wheezes Cardiovascular exam: PRESENT: RRR. ABSENT: diastolic murmur, rubs, systolic murmur Pulses: PRESENT: normal dorsalis pedis pul Vascular exam: PRESENT: normal capillary refill GI/Abdominal exam: PRESENT: hypoactive bowel sounds, normal bowel sounds, soft, tenderness. ABSENT: distended, guarding, mass, organolmegaly, rebound Rectal exam: PRESENT: deferred Extremities exam: PRESENT: full ROM. ABSENT: calf tenderness, clubbing, pedal edema Neurological exam: PRESENT: alert, awake, oriented to person, oriented to place, oriented to time, oriented to situation, CN II-XII grossly intact. ABSENT: motor sensory deficit Psychiatric exam: PRESENT: appropriate affect, normal mood. ABSENT: homicidal ideation, suicidal ideation Skin exam: PRESENT: dry, intact, warm. ABSENT: cyanosis, rash Results Laboratory Results: 01/14/19 05:43 01/14/19 05:43 01/13/19 01/13/19 01/13/19 07:49 07:49 08:11 WBC RBC Hgb Hct MCV MCH MCHC RDW Plt Count Seg Neutrophils % Sodium 141.6 Potassium Chloride Carbon Dioxide Anion Gap 10 BUN Creatinine Est GFR ( Amer) Glucose Calcium Phosphorus Magnesium Total Bilirubin 0.4 AST 55 Alkaline Phosphatase 85 Total Protein 7.3 Albumin 4.2 Lipase 3113.6 H Urine Color YELLOW Urine Appearance CLEAR Urine pH 5.0 Ur Specific [place] 1.014 Urine Protein NEGATIVE Urine Glucose (UA) NEGATIVE Urine Ketones NEGATIVE Urine Blood SMALL H Urine Nitrite NEGATIVE Ur Leukocyte Esterase NEGATIVE Urine WBC (Auto) 1 Urine RBC (Auto) 0 01/14/19 01/14/19 05:43 05:43 WBC 6.9 RBC 4.74 Hgb 12.1 L Hct 37.8 L MCV 80 MCH 25.6 L MCHC 32.1 RDW 15.0 H Plt Count 149 L Seg Neutrophils % 75.6 Sodium 135.0 L Potassium 4.1 Chloride 100 Carbon Dioxide 28 Anion Gap 7 BUN 12 Creatinine 0.75 Est GFR ( Amer) > 60 Glucose 80 Calcium 8.7 Phosphorus 3.4 Magnesium 1.4 L Total Bilirubin AST Alkaline Phosphatase Total Protein Albumin Lipase 3966.6 H Urine Color Urine Appearance Urine pH Ur Specific [place] Urine Protein Urine Glucose (UA) Urine Ketones Urine Blood Urine Nitrite Ur Leukocyte Esterase Urine WBC (Auto) Urine RBC (Auto) 01/13/19 01/13/19 08:55 08:55 Creatine Kinase 209 H CK-MB (CK-2) 1.07 Troponin I < 0.012 Impressions: Abdomen/Pelvis CT 01/13/19 08:51 IMPRESSION: 1. Acute pancreatitis with a large amount pancreatic and [place] creatic edema. There are 2 pseudocysts. The larger is in the tail of the pancreas and the smaller in the head of the pancreas. 2. Hepatic steatosis. Chest X-Ray 01/13/19 08:51 IMPRESSION: NO ACUTE RADIOGRAPHIC FINDING IN THE CHEST. Assessment and Plan - Diagnosis (1) Acute alcoholic pancreatitis Qualifiers: Is this a current diagnosis for this admission?: Yes Plan: 01/13/2019-admit to medical surgical. N.p.o. Normal saline at 175 mL/h. Repeat lipase in the a.m. Dilaudid 1 mg IV every 2 hours as needed pain. 01/14/2019-continue n.p.o. Continue normal saline at 175 mL/h. Lipase increases to 4000. Continue Dilaudid as needed. (2) Abdominal pain Is this a current diagnosis for this admission?: Yes Plan: 01/13/2019-Dilaudid 1 mg IV every 2 hours. PRN 01/14/2019-continue Dilaudid as needed (3) Alcohol abuse Is this a current diagnosis for this admission?: Yes Plan: 01/13/2019-Ativan 1 mg IV every 4 hours as needed. Will give patient banana bag IV daily 01/14/2019-continue Ativan as needed, Valium scheduled and banana bags daily. (4) Cigarette smoker Is this a current diagnosis for this admission?: Yes Plan: 2018-continue to educate on importance of smoking cessation 01/14/2019-continue smoking cessation education (5) Hypomagnesemia Is this a current diagnosis for this admission?: Yes Plan: 1017 2018-2 g IV magnesium at this time repeat magnesium level in a.m. - Time Time Spent with patient: 15-24 minutes
[2019-01-14] MEDS: MAGNESIUM SULFATE/D5W 1 GM/100 ML RTUPB IV SCH ×2 (08:59→10:03)
[2019-01-14] MEDS: NORMAL SALINE 1000 ML 1,000 ML with THIAMINE HCL 100 MG, MVI, ADULT NO.1 WITH VIT K 10 ML IV SCH ×3 (18:11)
[2019-01-15] MEDS: DIAZEPAM INJ 10 MG/2 ML DISP.SYRIN IV SCH ×5 (00:08→23:38)
[2019-01-15] MEDS: HYDROMORPHONE HCL INJ/PF 2 MG/ML AMPULE IV PRN ×9 (01:41→23:37)
[2019-01-15 06:58] LABS: ANION GAP 7 (5-19); BLOOD UREA NITROGEN 8 mg/dL (7-20); CALCIUM 8.2 mg/dL (8.4-10.2); CARBON DIOXIDE 25 mmol/L (22-30); CHLORIDE 103 mmol/L (98-107); GLUCOSE 75 mg/dL (75-110); POTASSIUM 3.8 mmol/L (3.6-5.0)
[2019-01-15] MEDS: NORMAL SALINE 1000 ML 1,000 ML IV PRN (08:21)
--- NOTE | 2019-01-15 08:33 | PDOC PROGRESS REPORT ---
Subjective Progress Note for:: 01/15/19 Subjective:: 01/14/2019-continued abdominal pain 01/15/2019-improved abdominal pain. Reason For Visit: ACUTE PANCREATITIS Physical Exam Vital Signs: Temp Pulse Resp BP Pulse Ox 97.8 F 66 18 136/89 H 96 01/14/19 23:43 01/14/19 23:43 01/14/19 23:43 01/14/19 23:43 01/14/19 23:43 Intake & Output 01/14/19 01/15/19 01/16/19 06:59 06:59 06:59 Intake Total 3011 4701 Balance 3011 4701 Weight 65.5 kg 70.1 kg General appearance: PRESENT: no acute distress, well-developed, well-nourished Head exam: PRESENT: atraumatic, normocephalic Eye exam: PRESENT: conjunctiva pink, EOMI, PERRLA. ABSENT: scleral icterus Ear exam: PRESENT: normal external ear exam Mouth exam: PRESENT: moist, tongue midline Neck exam: ABSENT: carotid bruit, JVD, lymphadenopathy, thyromegaly Respiratory exam: PRESENT: clear to auscultation kev. ABSENT: rales, rhonchi, wheezes Cardiovascular exam: PRESENT: RRR. ABSENT: diastolic murmur, rubs, systolic murmur Pulses: PRESENT: normal dorsalis pedis pul Vascular exam: PRESENT: normal capillary refill GI/Abdominal exam: PRESENT: normal bowel sounds, soft, tenderness. ABSENT: distended, guarding, mass, organolmegaly, rebound Rectal exam: PRESENT: deferred Extremities exam: PRESENT: full ROM. ABSENT: calf tenderness, clubbing, pedal edema Neurological exam: PRESENT: alert, awake, oriented to person, oriented to place, oriented to time, oriented to situation, CN II-XII grossly intact. ABSENT: motor sensory deficit Psychiatric exam: PRESENT: appropriate affect, normal mood. ABSENT: homicidal ideation, suicidal ideation Skin exam: PRESENT: dry, intact, warm. ABSENT: cyanosis, rash Results Laboratory Results: 01/14/19 05:43 01/15/19 05:38 01/15/19 05:38 Sodium 134.5 L Potassium 3.8 Chloride 103 Carbon Dioxide 25 Anion Gap 7 BUN 8 Creatinine 0.73 Est GFR ( Amer) > 60 Glucose 75 Calcium 8.2 L Magnesium 1.5 L Lipase 1219.8 H 01/13/19 01/13/19 08:55 08:55 Creatine Kinase 209 H CK-MB (CK-2) 1.07 Troponin I < 0.012 Impressions: Abdomen/Pelvis CT 01/13/19 08:51 IMPRESSION: 1. Acute pancreatitis with a large amount pancreatic and peripancreatic edema. There are 2 pseudocysts. The larger is in the tail of the pancreas and the smaller in the head of the pancreas. 2. Hepatic steatosis. Chest X-Ray 01/13/19 08:51 IMPRESSION: NO ACUTE RADIOGRAPHIC FINDING IN THE CHEST. Assessment and Plan - Diagnosis (1) Acute alcoholic pancreatitis Qualifiers: Is this a current diagnosis for this admission?: Yes Plan: 01/13/2019-admit to medical surgical. N.p.o. Normal saline at 175 mL/h. Repeat lipase in the a.m. Dilaudid 1 mg IV every 2 hours as needed pain. 01/14/2019-continue n.p.o. Continue normal saline at 175 mL/h. Lipase increases to 4000. Continue Dilaudid as needed. 01/15/2019-improved. Lipase down to 1000. Will allow patient to try clear liquid diet. Continue fluids at this time continue PRN Dilaudid (2) Abdominal pain Is this a current diagnosis for this admission?: Yes Plan: 01/13/2019-Dilaudid 1 mg IV every 2 hours. PRN 01/14/2019-continue Dilaudid as needed 2018-improved. Continue Dilaudid as needed. We will give trial of clear liquid diet. (3) Alcohol abuse Is this a current diagnosis for this admission?: Yes Plan: 01/13/2019-Ativan 1 mg IV every 4 hours as needed. Will give patient banana bag IV daily 01/14/2019-continue Ativan as needed, Valium scheduled and banana bags daily. 01/15/2019-no signs of withdrawal at this time continue Valium rally bag and Ativan. (4) Cigarette smoker Is this a current diagnosis for this admission?: Yes Plan: 2018-continue to educate on importance of smoking cessation 01/14/2019-continue smoking cessation education 01/15/2019-continues smoking cessation education (5) Hypomagnesemia Is this a current diagnosis for this admission?: Yes Plan: 1017 2018-2 g IV magnesium at this time repeat magnesium level in a.m. 01/15/2019-magnesium 1.5 this morning. 2 g IV mag repeat magnesium in a.m. - Time Time Spent with patient: 15-24 minutes
[2019-01-15] MEDS: MAGNESIUM SULFATE/D5W 1 GM/100 ML RTUPB IV SCH ×2 (11:59→13:35)
[2019-01-15] MEDS: NORMAL SALINE 1000 ML 1,000 ML with THIAMINE HCL 100 MG, MVI, ADULT NO.1 WITH VIT K 10 ML IV SCH ×3 (17:59)
[2019-01-16] MEDS: HYDROMORPHONE HCL INJ/PF 2 MG/ML AMPULE IV PRN ×7 (01:45→23:05)
[2019-01-16 06:27] LABS: BLOOD UREA NITROGEN 4 mg/dL (7-20); CALCIUM 8.2 mg/dL (8.4-10.2); CARBON DIOXIDE 27 mmol/L (22-30); CHLORIDE 107 mmol/L (98-107); GLUCOSE 78 mg/dL (75-110); POTASSIUM 3.8 mmol/L (3.6-5.0)
[2019-01-16 06:29] LABS: ANION GAP 4 (5-19)
[2019-01-16] MEDS: DIAZEPAM INJ 10 MG/2 ML DISP.SYRIN IV SCH ×3 (06:34→18:24)
--- NOTE | 2019-01-16 08:17 | PDOC PROGRESS REPORT ---
Subjective Progress Note for:: 01/16/19 Subjective:: 01/14/2019-continued abdominal pain 01/15/2019-improved abdominal pain. 01/16/2019-no complaints this a.m. improved abdominal pain Reason For Visit: ACUTE PANCREATITIS Physical Exam Vital Signs: Temp Pulse Resp BP Pulse Ox 98.8 F 66 18 160/90 H 97 01/16/19 00:00 01/16/19 00:00 01/16/19 00:00 01/16/19 00:00 01/16/19 00:00 Intake & Output 01/15/19 01/16/19 01/17/19 06:59 06:59 06:59 Intake Total 4701 1580 Balance 4701 1580 Weight 70.1 kg 70.1 kg General appearance: PRESENT: no acute distress, well-developed, well-nourished Head exam: PRESENT: atraumatic, normocephalic Eye exam: PRESENT: conjunctiva pink, EOMI, PERRLA. ABSENT: scleral icterus Ear exam: PRESENT: normal external ear exam Mouth exam: PRESENT: moist, tongue midline Neck exam: ABSENT: carotid bruit, JVD, lymphadenopathy, thyromegaly Respiratory exam: PRESENT: clear to auscultation kev. ABSENT: rales, rhonchi, wheezes Cardiovascular exam: PRESENT: RRR. ABSENT: diastolic murmur, rubs, systolic murmur Pulses: PRESENT: normal dorsalis pedis pul Vascular exam: PRESENT: normal capillary refill GI/Abdominal exam: PRESENT: normal bowel sounds, soft, tenderness. ABSENT: distended, guarding, mass, organolmegaly, rebound Rectal exam: PRESENT: deferred Extremities exam: PRESENT: full ROM. ABSENT: calf tenderness, clubbing, pedal e jayme Neurological exam: PRESENT: alert, awake, oriented to person, oriented to place, oriented to time, oriented to situation, CN II-XII grossly intact. ABSENT: motor sensory deficit Psychiatric exam: PRESENT: appropriate affect, normal mood. ABSENT: homicidal ideation, suicidal ideation Skin exam: PRESENT: dry, intact, warm. ABSENT: cyanosis, rash Results Laboratory Results: 01/14/19 05:43 01/16/19 05:19 01/16/19 05:19 Sodium 138.0 Potassium 3.8 Chloride 107 Carbon Dioxide 27 Anion Gap 4 L BUN 4 L Creatinine 0.74 Est GFR ( Amer) > 60 Glucose 78 Calcium 8.2 L Magnesium 1.6 Lipase 453.2 H 01/13/19 01/13/19 08:55 08:55 Creatine Kinase 209 H CK-MB (CK-2) 1.07 Troponin I < 0.012 Impressions: Abdomen/Pelvis CT 01/13/19 08:51 IMPRESSION: 1. Acute pancreatitis with a large amount pancreatic and peripancreatic edema. There are 2 pseudocysts. The larger is in the tail of the pancreas and the smaller in the head of the pancreas. 2. Hepatic steatosis. Chest X-Ray 01/13/19 08:51 IMPRESSION: NO ACUTE RADIOGRAPHIC FINDING IN THE CHEST. Assessment and Plan - Diagnosis (1) Acute alcoholic pancreatitis Qualifiers: Is this a current diagnosis for this admission?: Yes Plan: 01/13/2019-admit to medical surgical. N.p.o. Normal saline at 175 mL/h. Repeat lipase in the a.m. Dilaudid 1 mg IV every 2 hours as needed pain. 01/14/2019-continue n.p.o. Continue normal saline at 175 mL/h. Lipase increase s to 4000. Continue Dilaudid as needed. 01/15/2019-improved. Lipase down to 1000. Will allow patient to try clear liquid diet. Continue fluids at this time continue PRN Dilaudid 01/16/2019-lipase 400. Try again with clear liquids. Decrease fluids to 75 mL/h. Decrease Dilaudid to 1 mg IV every 4 hours as needed. (2) Abdominal pain Is this a current diagnosis for this admission?: Yes Plan: 01/13/2019-Dilaudid 1 mg IV every 2 hours. PRN 01/14/2019-continue Dilaudid as needed 2018-improved. Continue Dilaudid as needed. We will give trial of clear liquid diet. 01/16/2019-decrease Dilaudid to 1 mg IV every 4 hours as needed (3) Alcohol abuse Is this a current diagnosis for this admission?: Yes Plan: 01/13/2019-Ativan 1 mg IV every 4 hours as needed. Will give patient banana bag IV daily 01/14/2019-continue Ativan as needed, Valium scheduled and banana bags daily. 01/15/2019-no signs of withdrawal at this time continue Valium rally bag and Ativan. 01/16/2019-no signs of withdrawal. Continue Valium rally bag and Ativan as needed. (4) Cigarette smoker Is this a current diagnosis for this admission?: Yes Plan: 2018-continue to educate on importance of smoking cessation 01/14/2019-continue smoking cessation education 01/15/2019-continues smoking cessation education 01/16/2019-continue smoking cessation education with patient. (5) Hypomagnesemia Is this a current diagnosis for this admission?: Yes Plan: 1017 2018-2 g IV magnesium at this time repeat magnesium level in a.m. 01/15/2019-magnesium 1.5 this morning. 2 g IV mag repeat magnesium in a.m. 01/16/2019-stable - Time Time Spent with patient: 15-24 minutes - Inpatient Certification Based on my medical assessment, after consideration of the patient's comorbidities, presenting symptoms, or acuity I expect that the services needed warrant INPATIENT care.: Yes I certify that my determination is in accordance with my understanding of Medicare's requirements for reasonable and necessary INPATIENT services [42 CFR 412.3e].: Yes Medical Necessity: Need for Pain Control, Need for IV Antibiotics
[2019-01-16] MEDS: NORMAL SALINE 1000 ML 1,000 ML IV PRN ×2 (08:30→23:10)
[2019-01-17] MEDS: DIAZEPAM INJ 10 MG/2 ML DISP.SYRIN IV SCH ×2 (00:52→05:37)
[2019-01-17] MEDS: HYDROMORPHONE HCL INJ/PF 2 MG/ML AMPULE IV PRN (03:12)
--- NOTE | 2019-01-17 07:57 | PDOC DISCHARGE SUMMARY ---
Impression - Admit/DC Date/PCP Admission Date/Primary Care Provider: 01/15/19 14:47 Discharge Date: 01/17/19 - Discharge Diagnosis (1) Acute alcoholic pancreatitis Is this a current diagnosis for this admission?: Yes (2) Abdominal pain Is this a current diagnosis for this admission?: Yes (3) Alcohol abuse Is this a current diagnosis for this admission?: Yes (4) Cigarette smoker Is this a current diagnosis for this admission?: Yes (5) Hypomagnesemia Is this a current diagnosis for this admission?: Yes - Additional Information Resuscitation Status: Full Code Discharge Diet: As Tolerated Discharge Activity: Activity As Tolerated Referrals: [facility] [Outside] Prescriptions: Acetaminophen with Codeine [Tylenol #3 Tablet] 1 each PO Q6HP PRN #15 tablet PRN Reason: Ondansetron HCl [Zofran 4 mg Tablet] 1 - 2 tab PO Q4H PRN #10 tablet PRN Reason: Home Medications: Acetaminophen with Codeine [Tylenol #3 Tablet] 1 each PO Q6HP PRN #15 tablet 01/17/19 Ondansetron HCl [Zofran 4 mg Tablet] 1 - 2 tab PO Q4H PRN #10 tablet 01/17/19 History of Present Illiness History of Present Illness: LEVI POP is a 23 year old male Hospital Course Hospital Course: Patient was admitted to medical surgical floor made n.p.o., received IV fluids of normal saline at 175 mL/h and IV pain control with Dilaudid. Throughout his hospital stay patient made gradual improvement in his pain level as well as his lipase. Patient is taking a diet at this time and feels he is ready to go home. I will send patient home on Zofran 4 mg p.o. as needed for nausea vomiting and Tylenol 3 #15 1 p.o. every 6 hours as needed for pain. Patient will follow-up with primary care practitioner in 1 week. Patient has been educated to abstain from alcohol intake. Patient agrees with plan of care. Physical Exam Vital Signs: Temp Pulse Resp BP Pulse Ox 98.0 F 63 17 153/94 H 96 01/17/19 00:00 01/17/19 00:00 01/17/19 00:00 01/17/19 00:00 01/17/19 00:00 Intake & Output 01/16/19 01/17/1919 06:59 06:59 06:59 Intake Total 5001 3590 Balance 2591 2367 Weight 70.1 kg 71.2 kg General appearance: PRESENT: no acute distress, well-developed, well-nourished Head exam: PRESENT: atraumatic, normocephalic Eye exam: PRESENT: conjunctiva pink, EOMI, PERRLA. ABSENT: scleral icterus Ear exam: PRESENT: normal external ear exam Mouth exam: PRESENT: moist, tongue midline Neck exam: ABSENT: carotid bruit, JVD, lymphadenopathy, thyromegaly Respiratory exam: PRESENT: clear to auscultation kev. ABSENT: rales, rhonchi, wheezes Cardiovascular exam: PRESENT: RRR. ABSENT: diastolic murmur, rubs, systolic murmur Pulses: PRESENT: normal dorsalis pedis pul Vascular exam: PRESENT: normal capillary refill GI/Abdominal exam: PRESENT: normal bowel sounds, soft. ABSENT: distended, guarding, mass, organolmegaly, rebound, tenderness Rectal exam: PRESENT: deferred Extremities exam: PRESENT: full ROM. ABSENT: calf tenderness, clubbing, pedal edema Neurological exam: PRESENT: alert, awake, oriented to person, oriented to place, oriented to time, oriented to situation, CN II-XII grossly intact. ABSENT: motor sensory deficit Psychiatric exam: PRESENT: appropriate affect, normal mood. ABSENT: homicidal ideation, suicidal ideation Skin exam: PRESENT: dry, intact, warm. ABSENT: cyanosis, rash Results Laboratory Results: WBC 6.9 10^3/uL (4.0-10.5) 01/14/19 05:43 RBC 4.74 10^6/uL (4.35-5.55) 01/14/19 05:43 Hgb 12.1 g/dL (13.5-17.0) L 01/14/19 05:43 Hct 37.8 % (37.9-51.0) L 01/14/19 05:43 MCV 80 fl (80-97) 01/14/19 05:43 MCH 25.6 pg (27.0-33.4) L 01/14/19 05:43 MCHC 32.1 g/dL (32.0-36.0) 01/14/19 05:43 RDW 15.0 % (11.5-14.0) H 01/14/19 05:43 Plt Count 149 10^3/uL (150-450) L 01/14/19 05:43 Lymph % (Auto) 14.8 % (13-45) 01/14/19 05:43 [place] % (Auto) 8.7 % (3-13) 01/14/19 05:43 Eos % (Auto) 0.7 % (0-6) 01/14/19 05:43 Baso % (Auto) 0.2 % (0-2) 01/14/19 05:43 Absolute Neuts (auto) 5.2 10^3/uL (1.7-8.2) 01/14/19 05:43 Absolute Lymphs (auto) 1.0 10^3/uL (0.5-4.7) 01/14/19 05:43 Absolute Monos (auto) 0.6 10^3/uL (0.1-1.4) 01/14/19 05:43 Absolute Eos (auto) 0.0 10^3/uL (0.0-0.6) 01/14/19 05:43 Absolute Basos (auto) 0.0 10^3/uL (0.0-0.2) 01/14/19 05:43 Seg Neutrophils % 75.6 % (42-78) 01/14/19 05:43 Sodium 138.0 mmol/L (137-145) 01/16/19 05:19 Potassium 3.8 mmol/L (3.6-5.0) 01/16/19 05:19 Chloride 107 mmol/L (98-107) 01/16/19 05:19 Carbon Dioxide 27 mmol/L (22-30) 01/16/19 05:19 Anion Gap 4 (5-19) L 01/16/19 05:19 BUN 4 mg/dL (7-20) L 01/16/19 05:19 Creatinine 0.74 mg/dL (0.52-1.25) 01/16/19 05:19 Est GFR ( Amer) > 60 (>60) 01/16/19 05:19 Est GFR (MDRD) Non-Af > 60 (>60) 01/16/19 05:19 Glucose 78 mg/dL (75-110) 01/16/19 05:19 Calcium 8.2 mg/dL (8.4-10.2) L 01/16/19 05:19 Phosphorus 3.4 mg/dL (2.5-4.5) 01/14/19 05:43 Magnesium 1.6 mg/dL (1.6-2.3) 01/16/19 05:19 Total Bilirubin 0.4 mg/dL (0.2-1.3) 01/13/19 07:49 Direct Bilirubin 0.1 mg/dL (0.0-0.4) 01/13/19 07:49 Neonat Total Bilirubin Not Reportable 01/13/19 07:49 Neonat Direct Bilirubin Not Reportable 01/13/19 07:49 Neonat Indirect Bili Not Reportable 01/13/19 07:49 AST 55 U/L (17-59) 01/13/19 07:49 ALT 46 U/L (<50) 01/13/19 07:49 Alkaline Phosphatase 85 U/L (38-126) 01/13/19 07:49 Creatine Kinase 209 U/L (55-170) H 01/13/19 08:55 CK-MB (CK-2) 1.07 ng/mL (<4.55) 01/13/19 08:55 Troponin I < 0.012 ng/mL 01/13/19 08:55 Total Protein 7.3 g/dL (6.3-8.2) 01/13/19 07:49 Albumin 4.2 g/dL (3.5-5.0) 01/13/19 07:49 Lipase 453.2 U/L (23-300) H 01/16/19 05:19 Urine Color YELLOW 01/13/19 08:11 Urine Appearance CLEAR 01/13/19 08:11 Urine pH 5.0 (5.0-9.0) 01/13/19 08:11 Ur Specific [place] 1.014 01/13/19 08:11 Urine Protein NEGATIVE mg/dL (NEGATIVE) 01/13/19 08:11 Urine Glucose (UA) NEGATIVE mg/dL (NEGATIVE) 01/13/19 08:11 Urine Ketones NEGATIVE mg/dL (NEGATIVE) 01/13/19 08:11 Urine Blood SMALL (NEGATIVE) H 01/13/19 08:11 Urine Nitrite NEGATIVE (NEGATIVE) 01/13/19 08:11 Urine Bilirubin NEGATIVE (NEGATIVE) 01/13/19 08:11 Urine Urobilinogen NEGATIVE mg/dL (<2.0) 01/13/19 08:11 Ur Leukocyte Esterase NEGATIVE (NEGATIVE) 01/13/19 08:11 Urine WBC (Auto) 1 /HPF 01/13/19 08:11 Urine RBC (Auto) 0 /HPF 01/13/19 08:11 U Hyaline Cast (Auto) 11 /LPF 01/13/19 08:11 Urine Mucus (Auto) OCC /LPF 01/13/19 08:11 Urine Ascorbic Acid NEGATIVE (NEGATIVE) 01/13/19 08:11 Salicylates < 1.0 mg/dL (2.0-20.0) L 01/13/19 07:49 Urine Opiates Screen UNCONFIRMED POSITIVE 01/13/19 08:11 Urine Methadone Screen NEGATIVE 01/13/19 08:11 Acetaminophen < 10 ug/mL (10-30) L 01/13/19 07:49 Ur Barbiturates Screen NEGATIVE 01/13/19 08:11 Ur Phencyclidine Scrn NEGATIVE 01/13/19 08:11 Ur Amphetamines Screen NEGATIVE 01/13/19 08:11 U Benzodiazepines Scrn NEGATIVE 01/13/19 08:11 Urine Cocaine Screen NEGATIVE 01/13/19 08:11 U Marijuana (THC) Screen NEGATIVE 01/13/19 08:11 Serum Alcohol 143 mg/dL (NONE DETECTED) 01/13/19 07:49 01/13/19 08:55 CK-MB (CK-2) 1.07 Troponin I < 0.012 Impressions: Abdomen/Pelvis CT 01/13/19 08:51 IMPRESSION: 1. Acute pancreatitis with a large amount pancreatic and peripancreatic edema. There are 2 pseudocysts. The larger is in the tail of the pancreas and the smaller in the head of the pancreas. 2. Hepatic steatosis. Chest X-Ray 01/13/19 08:51 IMPRESSION: NO ACUTE RADIOGRAPHIC FINDING IN THE CHEST. Plan Time Spent: Greater than 30 Minutes Stroke Is this a Stroke Patient?: No Acute Heart Failure - Is this a Heart Failure Patient?: No
[2019-01-17 08:19] VITALS: BP 141/96
== END 2019-01-17 10:15 | disposition home or self-care (01) | DRG 440 ==
LOC: ER 07:25 → EH 12:47 → INTOOBSV 12:47 → 5 16:17 → OBSVTOIN 01-15 14:47
PROVIDERS: ADMIT Internal Medicine; ATTEND Internal Medicine
PROC: 3E0234Z Introduction of Serum, Toxoid and Vaccine into Muscle, Percutaneous Approach (ICD-10-PCS; principal; 2019-01-17)
DX: K85.20 Alcohol induced acute pancreatitis without necrosis or infection (principal); E83.42 Hypomagnesemia; F10.10 Alcohol abuse, uncomplicated; F12.90 Cannabis use, unspecified, uncomplicated; F17.210 Nicotine dependence, cigarettes, uncomplicated; Y90.6 Blood alcohol level of 120-199 mg/100 ml; Z23 Encounter for immunization
CPT/HCPCS: 36415; 71046; 74177; 80048; 80053; 80307; 81001; 82550; 82553; 83690; 83735; 84100; 84484; 85025; 90686; 93005; 93010; 96361; 96374; 96375; 99285; J1170; J1885; J2270; J2405; J3360; J3411; J3475; J3490; J7030

== ENCOUNTER 2019-09-23 00:47 | Inpatient (IN) | payer SELFPAY ==
[2019-09-23] MEDS ORDERED: ONDANSETRON HCL INJ/PF 4 MG/2 ML SDV IV ONE (02:19)
--- NOTE | 2019-09-23 02:21 | ER Document Report ---
ED Medical Screen (RME) - General Chief Complaint: Abdominal Pain Stated Complaint: ABDOMINAL PAIN Time Seen by Provider: 09/23/19 02:18 Mode of Arrival: Ambulatory Information source: Patient Notes: 23-year-old male presented to ED for complaint of exacerbation of his pancreatitis. He states he has not drank for a long time and he recently lost his job and his house. He states his fiance went out of town for a and he was depressed back and up his house so he was binge drinking from until this past Thursday for 5 days. He states now his abdomen is extremely painful and he is very nauseated. He states he knows he is not supposed to drink with his pancreatitis but he was extremely depressed and by himself. He is alert oriented respirations regular and unlabored speaking in full sentences. I have greeted and performed a rapid initial assessment of this patient. A comprehensive ED assessment and evaluation of the patient, analysis of test results and completion of medical decision making process will be conducted by an additional ED providers. TRAVEL OUTSIDE OF THE [place] IN LAST 30 DAYS: No - Related Data Allergies/Adverse Reactions: No Known Allergies Allergy (Verified 01/13/19 07:39) Past Medical History - Social History Chew tobacco use (# tins/day): No Frequency of alcohol use: Social Drug Abuse: None, Marijuana Endocrine Medical History: Denies: Hx Diabetes Mellitus Type 1, Hx Diabetes Mellitus Type 2 Renal/ Medical History: Denies: Hx Peritoneal Dialysis GI Medical History: Reports: Hx Pancreatitis Psychiatric Medical History: Denies: Hx Depression - Immunizations Immunizations up to date: Yes Hx Diphtheria, Pertussis, Tetanus Vaccination: Yes - 01/26/2018 Physical Exam - Vital signs Vitals: Temp Pulse Resp BP Pulse Ox 98.5 F 74 16 147/89 H 97 09/23/19 01:02 09/23/19 01:02 09/23/19 01:02 09/23/19 01:02 09/23/19 01:02 Course - Vital Signs Vital signs: Temp Pulse Resp BP Pulse Ox 98.5 F 74 16 147/89 H 97 09/23/19 01:42 09/23/19 01:02 09/23/19 01:02 09/23/19 01:02 09/23/19 01:02
[2019-09-23] MEDS: NORMAL SALINE 1000 ML 1,000 ML IV PRN ×2 (05:02→05:52)
[2019-09-23] MEDS ORDERED: ONDANSETRON HCL INJ/PF 4 MG/2 ML SDV ONE (05:04)
[2019-09-23 05:14] LABS: ABSOLUTE EOSINOPHILS # (AUTO) 0.1 10^3/uL (0.0-0.6); ABSOLUTE LYMPHOCYTES (AUTO) 0.9 10^3/uL (0.5-4.7); ABSOLUTE NEUT (AUTO) 4.8 10^3/uL (1.7-8.2); BASOPHILS % (AUTO) 0.2 % (0-2); EOSINOPHILS % (AUTO) 1.2 % (0-6); HEMATOCRIT 38.8 % (37.9-51.0); HEMOGLOBIN 12.8 g/dL (13.5-17.0); LYMPHOCYTES % (AUTO) 12.9 % (13-45); MEAN CORPUSCULAR HEMOGLOBIN 26.4 pg (27.0-33.4); MEAN CORPUSCULAR HGB CONC 32.9 g/dL (32.0-36.0); MEAN CORPUSCULAR VOLUME 80 fl (80-97); MONOCYTES % (AUTO) 14.3 % (3-13); PLATELET COUNT 160 10^3/uL (150-450); RED BLOOD COUNT 4.84 10^6/uL (4.35-5.55); RED CELL DISTRIBUTION WIDTH 16.5 % (11.5-14.0); SEGMENTED NEUTROPHILS % (AUTO) 71.4 % (42-78); TOTAL CELLS COUNTED % (AUTO) 100 %; WHITE BLOOD COUNT 6.7 10^3/uL (4.0-10.5)
[2019-09-23 05:16] LABS: APPEARANCE,URINE SLIGHTLY-CLOUDY; BILIRUBIN,URINE NEGATIVE (NEGATIVE); COLOR,URINE YELLOW; GLUCOSE, URINE NEGATIVE (NEGATIVE); KETONES,URINE 20 mg/dL (NEGATIVE); LEUKOCYTE ESTERASE,URINE NEGATIVE (NEGATIVE); NITRITE,URINE NEGATIVE (NEGATIVE); PROTEIN,URINE 30 mg/dL (NEGATIVE); URINE SPECIFIC GRAVITY 1.025
[2019-09-23 05:28] LABS: URINE AMPHETAMINES SCREEN NEGATIVE; URINE BARBITURATES SCREEN NEGATIVE; URINE BENZODIAZEPINES SCREEN NEGATIVE; URINE COCAINE SCREEN NEGATIVE; URINE METHADONE SCREEN NEGATIVE; URINE PHENCYCLIDINE SCREEN NEGATIVE
[2019-09-23 05:34] LABS: URINE MARIJUANA (THC) SCREEN UNCONFIRMED POSITIVE
[2019-09-23 05:39] LABS: ALBUMIN 4.2 g/dL (3.5-5.0); ALKALINE PHOSPHATASE 89 U/L (38-126); ANION GAP 7 (5-19); ASPARTATE AMINO TRANSFERASE 51 U/L (17-59); BILIRUBIN,DIRECT 0.1 mg/dL (0.0-0.4); BILIRUBIN,TOTAL 0.8 mg/dL (0.2-1.3); BLOOD UREA NITROGEN 15 mg/dL (7-20); CALCIUM 9.9 mg/dL (8.4-10.2); CARBON DIOXIDE 30 mmol/L (22-30); CHLORIDE 95 mmol/L (98-107); GLUCOSE 107 mg/dL (75-110); POTASSIUM 4.3 mmol/L (3.6-5.0); TOTAL PROTEIN 8.1 g/dL (6.3-8.2)
[2019-09-23 05:43] LABS: ALCOHOL < 10 mg/dL (NONE DETECTED)
[2019-09-23] MEDS ORDERED: KETOROLAC TROMETHAMINE INJ/PF 30 MG/1 ML SDV IV ONE (05:46)
[2019-09-23] MEDS ORDERED: NORMAL SALINE 1000 ML 1,000 ML IV ONE (10:27)
[2019-09-23] MEDS ORDERED: PANTOPRAZOLE SODIUM 40 MG VIAL IV ONE (10:30)
[2019-09-23] MEDS ORDERED: HYDROMORPHONE HCL INJ/PF 2 MG/ML AMPULE IV ONE (10:30)
--- NOTE | 2019-09-23 10:36 | ER Document Report ---
ED General - General Chief Complaint: Abdominal Pain Stated Complaint: ABDOMINAL PAIN Time Seen by Provider: 09/23/19 02:18 Mode of Arrival: Ambulatory TRAVEL OUTSIDE OF THE [place] IN LAST 30 DAYS: No - HPI Notes: Chief complaint: Epigastric pain History of present illness: 23-year-old male presented to ED for complaint of epigastric pain felt to be been drinking exacerbation of his pancreatitis. He states he has not been drinking for a long time and he recently lost his job and his house. He states his fiance went out of town for a and he was depressed was binge drinking from until this past Thursday for 5 days. He states now his abdomen is extremely painful and he is very nauseated. He states he knows he is not supposed to drink with his pancreatitis. He denies hematemesis. He denies fever. Mild nausea. - Related Data Allergies/Adverse Reactions: No Known Allergies Allergy (Verified 01/13/19 07:39) Past Medical History - General Information source: Patient, [facility] Records - Social History Smoking Status: Current Every Day Smoker Chew tobacco use (# tins/day): No Frequency of alcohol use: Social Drug Abuse: None, Marijuana Family History: Other - Alcoholism Endocrine Medical History: Denies: Hx Diabetes Mellitus Type 1, Hx Diabetes Mellitus Type 2 Renal/ Medical History: Denies: Hx Peritoneal Dialysis GI Medical History: Reports: Hx Pancreatitis Psychiatric Medical History: Denies: Hx Depression - Immunizations Immunizations up to date: Yes Hx Diphtheria, Pertussis, Tetanus Vaccination: Yes - 01/26/2018 Review of Systems - Review of Systems Notes: Constitutional: Negative for fever. HENT: Negative for sore throat. Eyes: Negative for visual changes. Cardiovascular: Negative for chest pain. Respiratory: Negative for shortness of breath. Gastrointestinal: As per HPI. Genitourinary: Negative for dysuria. Musculoskeletal: Negative for back pain. Skin: Negative for rash. Neurological: Negative for headaches, weakness or numbness. 10 point ROS negative except as marked above and in HPI. Physical Exam - Vital signs Vitals: Temp Pulse BP Pulse Ox 98.5 F 77 147/89 H 97 09/23/19 01:00 09/23/19 01:00 09/23/19 01:00 09/23/19 01:00 - Notes Notes: GENERAL: Well-developed well-nourished male approximately stated age appearing moderately uncomfortable. SKIN: Good turgor no rashes. HEAD: Normocephalic atraumatic. EYES: PERRLA. EOMI. Conjunctivae and sclerae clear. EARS: CANALS AND TMS CLEAR. NOSE: CLEAR. MOUTH: Moist mucosa. Good dentition. No stridor or edema. No drooling. NECK: Supple. No masses or thyromegaly. No adenopathy. Carotids 2+ without bruits. No JVD. BACK: Symmetrical without tenderness. CHEST: Respirations unlabored. Breath sounds clear and symmetrical. HEART: Regular rhythm. No murmur gallop or rub. ABDOMEN: Moderate epigastric tenderness. Soft without masses, organomegaly or rebound. Bowel sounds normally active. No bruits. GENITALIA: Deferred. EXTREMITIES: No edema. No calf tenderness. Cap refill less than 1.5 seconds. Dorsalis pedis and posterior tibial pulses 3+ and symmetrical. NEUROLOGICAL: GCS 15. Alert and oriented x3. Normal gait. Fluent speech. Cranial nerves II through XII intact. Sensorimotor and cerebellar normal. Normal tone. PSYCHIATRIC: Appropriate affect. Course - Re-evaluation Re-evalutation: 09/23/19 14:28 Lipase significantly elevated 2100 range consistent with acute pancreatitis. No fever. No elevation of white count. Nonsurgical abdomen by exam. CT shows 2 cm pseudocyst present in the pancreas and changes of acute pancreatic inflammation of the tail of the pancreas. There is also a small amount of free fluid in the pelvis. Patient is been kept n.p.o. and received IV fluids and IV morphine and Zofran. Of also given some IV Pepcid. Case has been reviewed with the on-call hospitalist who will admit to [facility]. 09/23/19 14:30 - Vital Signs Vital signs: Temp Pulse Resp BP Pulse Ox 98.7 F 64 20 150/67 H 98 09/23/19 11:03 09/23/19 11:03 09/23/19 11:03 09/23/19 11:03 09/23/19 11:03 - Laboratory Result Diagrams: 09/23/19 04:45 09/23/19 04:45 Laboratory results interpreted by me: 09/23/19 09/23/19 09/23/19 04:45 04:45 04:45 Hgb 12.8 L MCH 26.4 L RDW 16.5 H Lymph % (Auto) 12.9 L [place] % (Auto) 14.3 H Sodium 131.6 L Chloride 95 L ALT 54 H Lipase 2161.7 H Urine Protein 30 H Urine Ketones 20 H Urine Blood SMALL H Urine Urobilinogen 2.0 H - Diagnostic Test Radiology reviewed: Reports reviewed - Per radiologist: Changes of acute pancreatitis and 2 cm pancreatic pseudocyst with small amount of free fluid in the pelvis. Discharge - Discharge Clinical Impression: Pancreatic pseudocyst Acute pancreatitis Qualifiers: Pancreatitis type: alcohol induced Acute pancreatitis complication: unspecified Qualified Code(s): K85.20 - Alcohol induced acute pancreatitis without necrosis or infection Condition: Fair Disposition: ADMITTED INPATIENT Admitting Provider: Emerson (Hospitalist) Unit Admitted: [facility]
[2019-09-23] MEDS ORDERED: MORPHINE SULFATE 10 MG/ML INJ IV ONE (13:31)
--- NOTE | 2019-09-23 13:36 | RADIOLOGY REPORT (SQ) ---
EXAM DESCRIPTION: CT ABD/PELVIS WITH IV ORAL IMAGES COMPLETED DATE/TIME: 09/23/2019 1:17 pm REASON FOR STUDY: pancreatitis COMPARISON: 2013 TECHNIQUE: CT scan of the abdomen and pelvis performed using helical scanning technique with dynamic intravenous contrast injection. Oral contrast. Images reviewed with lung, soft tissue, and bone win dows. Reconstructed coronal and sagittal MPR images reviewed. Delayed images for evaluation of the ur inary system also acquired. All images stored on PACS. All CT scanners at this facility use dose modulation, iterative reconstruction, and/or weight based d osing when appropriate to reduce radiation dose to as low as reasonably achievable (ALARA). [facility]: Dose Right [facility]: CareDose [facility]: Dose Right [facility]: Teradose 4D [facility]: Oonair CONTRAST TYPE AND DOSE: contrast/concentration: Isovue 350.00 mmol/ml; Total Contrast Delivered: 66. 0 ml; Total Saline Delivered: 65.0 ml 66 cc Omnipaque 350- low osmolar. RENAL FUNCTION: BUN 15 creatinine 0.64 RADIATION DOSE: CT Rad equipment meets quality standard of care and radiation dose reduction techn[employer]s, [employer]. ues were employed. CTDIvol: NaN - NaN mGy. DLP: 0 mGy-cm.. LIMITATIONS: None. FINDINGS: LOWER CHEST: No significant findings. No nodules or infiltrates. LIVER: The liver is hypoattenuating. SPLEEN: Normal size. No focal lesions. PANCREAS: There appears to be pancreatic edema with a 2 cm fluid collection in the tail of the pancre as. Slight thickening of the anterior renal fascia on the left. GALLBLADDER: No identified stones by CT criteria. No inflammatory changes to suggest cholecystitis. ADRENAL GLANDS: No significant masses or asymmetry. RIGHT KIDNEY AND URETER: No solid masses. No significant calcifications. No hydronephrosis or hyd roureter. LEFT KIDNEY AND URETER: No solid masses. No significant calcifications. No hydronephrosis or hydr oureter. AORTA AND VESSELS: No aneurysm. No dissection. Renal arteries, SMA, celiac without stenosis. RETROPERITONEUM: No retroperitoneal adenopathy, hemorrhage or masses. BOWEL AND PERITONEAL CAVITY: No masses or inflammatory changes. No free fluid or peritoneal masses. APPENDIX: Not identified. PELVIS: There is some free fluid in the pelvis. Urinary bladder is normal. No pelvic mass. ABDOMINAL WALL: No masses. No hernias. BONES: No significant or acute findings. OTHER: No other significant finding. IMPRESSION: 1. Pancreatitis with a likely 2 cm pseudocyst in the tail of the pancreas. There is fr ee fluid in the pelvis. 2. Hepatic steatosis versus hepatocellular disease. TECHNICAL DOCUMENTATION: JOB ID: [id number] Quality ID # [id number]: Final reports with documentation of one or more dose reduction techniques (e.g., Au tomated exposure control, adjustment of the mA and/or kV according to patient size, use of iterative reconstruction technique) 2010 [employer]- All Rights Reserved Reading location - IP/workstation name: [email or web address]
[2019-09-23] MEDS ORDERED: NICOTINE 14 MG/24 HR PATCH.TD24 TD ONE (15:06)
[2019-09-23] MEDS ORDERED: DEXTROSE 50%-WATER 25 GM/50 ML DISP.SYRIN IV PRN ×2 (15:33)
[2019-09-23] MEDS ORDERED: ACETAMINOPHEN 325 MG TABLET PO PRN (15:33)
[2019-09-23] MEDS ORDERED: MAG HYDROX/AL HYDROX/SIMETH SUSP 30 ML UDCUP PO PRN (15:33)
[2019-09-23] MEDS ORDERED: DEXTROSE 40% GEL 15 GM TUBE PO PRN ×2 (15:33)
[2019-09-23] MEDS ORDERED: PROMETHAZINE HCL INJ 25 MG/1 ML VIAL IV PRN (15:33)
[2019-09-23] MEDS ORDERED: GLUCAGON,HUMAN RECOMB 1 MG INJ SUBCUT PRN (15:33)
[2019-09-23] MEDS ORDERED: ACETAMINOPHEN 650 MG SUPP.RECT PR PRN (15:33)
[2019-09-23] MEDS ORDERED: LORAZEPAM INJ 2 MG/1 ML VIAL IV PRN (15:42)
--- NOTE | 2019-09-23 15:51 | PDOC H&P ---
History of Present Illness Admission Date/PCP: 09/23/19 15:00 Patient complains of: Abdominal pain History of Present Illness: LEVI POP is a 23 year old male with a history of alcoholism and pancreatitis. States that he was alcohol free for 5 to 6 months. Recently he had a break-up with his significant other and then drank continuously for approximately 5 to 6 days. He stopped drinking 4 days ago. The pain began 3 days ago. He had only one episode of emesis. It was unknown if he had fever but he did report chills. The abdominal pain is epigastric but there is also some suprapubic pain as well. The patient's appetite has been minimal. Serum lipase is greater than [address] scan shows pancreatitis with a 2 cm pancreatic cyst at the tail of the pancreas. In addition there is free fluid in the pelvis. The patient will be admitted for supportive care with pain management, aggressive IV fluids and since his last drink was 4 days ago we will monitor closely for withdrawal. Past Medical History Cardiac Medical History: Reports: None Pulmonary Medical History: Reports: None EENT Medical History: Reports: None Neurological Medical History: Reports: None Endocrine Medical History: Denies: Diabetes Mellitus Type 1, Diabetes Mellitus Type 2 Renal/ Medical History: Reports: None Malignancy Medical History: Reports: None GI Medical History: Reports: Other - Pancreatitis Musculoskeltal Medical History: Reports: None Skin Medical History: Reports: None Psychiatric Medical History: Reports: Alcohol Dependency, Substance Abuse, Tobacco Dependency Denies: Depression Traumatic Medical History: Reports: None Hematology: Reports: None Infectious Medical History: Reports: None Past Surgical History Past Surgical History: Reports: None Social History Information Source: Patient, [facility] Records Lives with: Alone Smoking Status: Current Every Day Smoker Electronic Cigarette use?: No Frequency of Alcohol Use: Heavy Hx Recreational Drug Use: Yes - Marijuana Drugs: Marijuana Hx Prescription Drug Abuse: No - Advance Directive Resuscitation Status: Full Code Family History Family History: Other - Alcoholism Parental Family History Reviewed: Yes Children Family History Reviewed: NA Sibling(s) Family History Reviewed.: Yes Medication/Allergy Home Medications: No Home Medications 09/23/19 Allergies/Adverse Reactions: No Known Allergies Allergy (Verified 01/13/19 07:39) Review of Systems All systems: reviewed and no additional remarkable complaints except as stated Constitutional: PRESENT: anorexia, chills Gastrointestinal: PRESENT: abdominal pain, nausea, vomiting Physical Exam Vital Signs: Temp Pulse Resp BP Pulse Ox 98.7 F 64 20 129/87 H 98 09/23/19 11:03 09/23/19 11:03 09/23/19 11:03 09/23/19 14:24 09/23/19 14:24 Intake & Output 09/22/19 09/23/19 09/24/19 06:59 06:59 06:59 Intake Total 1832 Balance 1832 Weight 58.4 kg General appearance: PRESENT: mild distress, thin, well-developed Head exam: PRESENT: atraumatic, normocephalic Eye exam: PRESENT: conjunctiva pink, EOMI. ABSENT: scleral icterus Ear exam: PRESENT: normal external ear exam. ABSENT: bleeding, drainage Mouth exam: PRESENT: dry mucosa Teeth exam: ABSENT: poor dentation Neck exam: PRESENT: full ROM. ABSENT: carotid bruit, JVD, lymphadenopathy Respiratory exam: PRESENT: clear to auscultation kev, symmetrical, unlabored. ABSENT: accessory muscle use, rales, rhonchi, tachypnea, wheezes Cardiovascular exam: PRESENT: RRR, +S1, +S2. ABSENT: diastolic murmur, irre gular rhythm, systolic murmur GI/Abdominal exam: PRESENT: normal bowel sounds, soft, tenderness - Epigastrium and laterally on the left. Suprapubic area.. ABSENT: distended, guarding Rectal exam: PRESENT: deferred Gentrourinary exam: ABSENT: indwelling catheter Extremities exam: ABSENT: clubbing, joint swelling, pedal edema Musculoskeletal exam: PRESENT: ambulatory, normal inspection. ABSENT: deformity Neurological exam: PRESENT: alert, awake, oriented to person, oriented to place, oriented to time, oriented to situation, CN II-XII grossly intact. ABSENT: altered, motor sensory deficit Psychiatric exam: PRESENT: appropriate affect. ABSENT: agitated, anxious Focused psych exam: ABSENT: delusional, paranoid, restlessness Skin exam: PRESENT: dry, normal color, warm. ABSENT: rash Results Laboratory Results: 09/23/19 04:45 09/23/19 04:45 09/23/19 09/23/19 09/23/19 04:45 04:45 04:45 WBC 6.7 RBC 4.84 Hgb 12.8 L Hct 38.8 MCV 80 MCH 26.4 L MCHC 32.9 RDW 16.5 H Plt Count 160 Seg Neutrophils % 71.4 Sodium 131.6 L Potassium 4.3 Chloride 95 L Carbon Dioxide 30 Anion Gap 7 BUN 15 Creatinine 0.64 Est GFR ( Amer) > 60 Glucose 107 Calcium 9.9 Magnesium Total Bilirubin 0.8 AST 51 Alkaline Phosphatase 89 Total Protein 8.1 Albumin 4.2 Lipase 2161.7 H Urine Color YELLOW Urine Appearance SLIGHTLY-CLOUDY Urine pH 5.0 Ur Specific [place] 1.025 Urine Protein 30 H Urine Glucose (UA) NEGATIVE Urine Ketones 20 H Urine Blood SMALL H Urine Nitrite NEGATIVE Ur Leukocyte Esterase NEGATIVE Urine WBC (Auto) 2 Urine RBC (Auto) 5 09/23/19 04:45 WBC RBC Hgb Hct MCV MCH MCHC RDW Plt Count Seg Neutrophils % Sodium Potassium Chloride Carbon Dioxide Anion Gap BUN Creatinine Est GFR ( Amer) Glucose Calcium Magnesium 1.9 Total Bilirubin AST Alkaline Phosphatase Total Protein Albumin Lipase Urine Color Urine Appearance Urine pH Ur Specific [place] Urine Protein Urine Glucose (UA) Urine Ketones Urine Blood Urine Nitrite Ur Leukocyte Esterase Urine WBC (Auto) Urine RBC (Auto) Impressions: Abdomen/Pelvis CT 09/23/19 00:00 IMPRESSION: 1. Pancreatitis with a likely 2 cm pseudocyst in the tail of the pancreas. There is free fluid in the pelvis. 2. Hepatic steatosis versus hepatocellular disease. Assessment and Plan - Diagnosis (1) Acute alcoholic pancreatitis Qualifiers: Acute pancreatitis complication: no infection or necrosis Is this a current diagnosis for this admission?: Yes Plan: 09/23/2019 NPO, aggressive fluids and monitor chemistries. Analgesia as needed. (2) Pancreatic pseudocyst Is this a current diagnosis for this admission?: Yes Plan: 09/23/2019 We will monitor. At this time no plans for surgical intervention or drainage. (3) Hyponatremia Is this a current diagnosis for this admission?: Yes Plan: 09/23/2019 Monitor. May correct with IV fluids. (4) Abdominal pain Qualifiers: Abdominal location: upper abdomen, unspecified Qualified Code(s): R10.10 - Upper abdominal pain, unspecified Is this a current diagnosis for this admission?: Yes Plan: 09/23/2019 Secondary to pancreatitis. Patient also reports some suprapubic pain. As needed analgesia. (5) Alcohol abuse Is this a current diagnosis for this admission?: Yes Plan: 09/23/2019 Last drink was 4 days ago. Monitor with CIWA scale with benzodiazepine therapy available if needed. (6) Tobacco dependence due to cigarettes Is this a current diagnosis for this admission?: Yes Plan: 09/23/2019 Nicotine patch - Time Time Spent with patient: 35 or more minutes Smoking Cessation Education: 3 to 10 minutes Medications reviewed and adjusted accordingly: Yes Anticipated discharge: Home - Inpatient Certification Based on my medical assessment, after consideration of the patient's comorbidities, presenting symptoms, or acuity I expect that the services needed warrant INPATIENT care.: Yes I certify that my determination is in accordance with my understanding of Medicare's requirements for reasonable and necessary INPATIENT services [42 CFR 412.3e].: Yes Medical Necessity: Need Close Monitoring Due to Risk of Patient Decompensation, Need For IV Fluids, Need for Pain Control Post Hospital Care: D/C Deputy Register Of Deeds Documentation
[2019-09-23] MEDS: MORPHINE SULFATE 10 MG/ML INJ IV PRN ×2 (17:26→21:42)
[2019-09-23] MEDS: RINGERS SOLUTION,LACTATED 1,000 ML IV PRN ×3 (18:26→22:51)
[2019-09-23] MEDS: HEPARIN SOD (PORCINE) 5,000 UNIT/ML 1 ML VIAL SUBCUT SCH (21:45)
[2019-09-23] MEDS: PANTOPRAZOLE SODIUM 40 MG VIAL IV SCH (21:45)
[2019-09-24] MEDS: MORPHINE SULFATE 10 MG/ML INJ IV PRN ×8 (00:51→23:48)
[2019-09-24] MEDS: RINGERS SOLUTION,LACTATED 1,000 ML IV PRN ×5 (02:59→21:23)
[2019-09-24 05:08] LABS: ABSOLUTE EOSINOPHILS # (AUTO) 0.1 10^3/uL (0.0-0.6); ABSOLUTE LYMPHOCYTES (AUTO) 1.4 10^3/uL (0.5-4.7); ABSOLUTE MONOCYTES (AUTO) 1.1 10^3/uL (0.1-1.4); ABSOLUTE NEUT (AUTO) 3.9 10^3/uL (1.7-8.2); BASOPHILS % (AUTO) 0.5 % (0-2); EOSINOPHILS % (AUTO) 1.8 % (0-6); HEMATOCRIT 36.8 % (37.9-51.0); LYMPHOCYTES % (AUTO) 21.2 % (13-45); MEAN CORPUSCULAR HEMOGLOBIN 26.4 pg (27.0-33.4); MEAN CORPUSCULAR HGB CONC 32.5 g/dL (32.0-36.0); MEAN CORPUSCULAR VOLUME 81 fl (80-97); MONOCYTES % (AUTO) 16.9 % (3-13); PLATELET COUNT 154 10^3/uL (150-450); RED BLOOD COUNT 4.54 10^6/uL (4.35-5.55); RED CELL DISTRIBUTION WIDTH 16.2 % (11.5-14.0); SEGMENTED NEUTROPHILS % (AUTO) 59.6 % (42-78); TOTAL CELLS COUNTED % (AUTO) 100 %; WHITE BLOOD COUNT 6.6 10^3/uL (4.0-10.5)
[2019-09-24 05:39] LABS: ALBUMIN 3.3 g/dL (3.5-5.0); ALKALINE PHOSPHATASE 82 U/L (38-126); ANION GAP 9 (5-19); ASPARTATE AMINO TRANSFERASE 46 U/L (17-59); BILIRUBIN,DIRECT 0.1 mg/dL (0.0-0.4); BILIRUBIN,TOTAL 0.8 mg/dL (0.2-1.3); BLOOD UREA NITROGEN 11 mg/dL (7-20); CARBON DIOXIDE 22 mmol/L (22-30); CHLORIDE 104 mmol/L (98-107); POTASSIUM 3.8 mmol/L (3.6-5.0); TOTAL PROTEIN 6.6 g/dL (6.3-8.2)
[2019-09-24 05:42] LABS: GLUCOSE 67 mg/dL (75-110)
[2019-09-24] MEDS: HEPARIN SOD (PORCINE) 5,000 UNIT/ML 1 ML VIAL SUBCUT SCH ×3 (05:55→21:21)
[2019-09-24] MEDS: PANTOPRAZOLE SODIUM 40 MG VIAL IV SCH ×2 (09:29→21:21)
[2019-09-24] MEDS: NICOTINE 21 MG/24 HR PATCH.TD24 TD SCH (09:29)
[2019-09-24 10:49] LABS: CHOLESTEROL 175.45 mg/dL (0-200); TRIGLYCERIDES 123 mg/dL (<150)
[2019-09-24 11:01] LABS: DIRECT LDL 82 mg/dL (<100)
[2019-09-24] MEDS ORDERED: ONDANSETRON HCL INJ/PF 4 MG/2 ML SDV IV PRN (11:20)
--- NOTE | 2019-09-24 11:23 | PDOC PROGRESS REPORT ---
Subjective Progress Note for:: 09/24/19 Subjective:: Still having abdominal pain. Nausea has resolved and he would like to try diet. Reason For Visit: ACUTE PANCREATITIS,PANCREATIC CYST Physical Exam Vital Signs: Temp Pulse Resp BP Pulse Ox 98.2 F 55 L 18 133/85 H 98 09/24/19 08:08 09/24/19 08:08 09/24/19 08:08 09/24/19 08:08 09/24/19 08:08 Intake & Output 09/23/19 09/24/19 09/25/19 06:59 06:59 06:59 Intake Total 1832 4104 Balance 1832 4104 Weight 58.4 kg 62.6 kg General appearance: PRESENT: no acute distress, cooperative Neck exam: ABSENT: JVD Respiratory exam: PRESENT: clear to auscultation kev, symmetrical, unlabored. ABSENT: tachypnea, wheezes Cardiovascular exam: PRESENT: RRR, +S1, +S2. ABSENT: tachycardia GI/Abdominal exam: PRESENT: soft, tenderness. ABSENT: distended, firm, guarding, rebound, rigid Neurological exam: PRESENT: alert, awake, oriented to person, oriented to place, oriented to time, other - no tremors Psychiatric exam: ABSENT: agitated, anxious Focused psych exam: ABSENT: restlessness Results Laboratory Results: 09/24/19 04:44 09/24/19 04:44 09/24/19 09/24/19 09/24/19 04:44 04:44 04:44 WBC 6.6 RBC 4.54 Hgb 12.0 L Hct 36.8 L MCV 81 MCH 26.4 L MCHC 32.5 RDW 16.2 H Plt Count 154 Seg Neutrophils % 59.6 Sodium 135.3 L Potassium 3.8 Chloride 104 Carbon Dioxide 22 Anion Gap 9 BUN 11 Creatinine 0.58 Est GFR ( Amer) > 60 Glucose 67 L Calcium 9.0 Magnesium 1.6 Total Bilirubin 0.8 AST 46 Alkaline Phosphatase 82 Total Protein 6.6 Albumin 3.3 L Triglycerides 123 Cholesterol 175.45 LDL Cholesterol Direct 82 VLDL Cholesterol 25.0 HDL Cholesterol 66 Lipase 1841.9 H Impressions: Abdomen/Pelvis CT 09/23/19 00:00 IMPRESSION: 1. Pancreatitis with a likely 2 cm pseudocyst in the tail of the pancreas. There is free fluid in the pelvis. 2. Hepatic steatosis versus hepatocellular disease. Assessment and Plan - Diagnosis (1) Acute alcoholic pancreatitis Qualifiers: Acute pancreatitis complication: no infection or necrosis Is this a current diagnosis for this admission?: Yes Plan: Continue aggressive IV fluids. Morphine IV and Tylenol as needed for pain with Toradol for breakthrough. Denies nausea at this time. I will start patient on a clear liquid diet and advance as tolerated. (2) Pancreatic pseudocyst Is this a current diagnosis for this admission?: Yes Plan: Continue to monitor. No indication for drainage at this time. (3) Hyponatremia Is this a current diagnosis for this admission?: Yes Plan: Suspect secondary to dehydration/poor caloric intake. Improving with IV fluid administration. (4) Tobacco dependence due to cigarettes Is this a current diagnosis for this admission?: Yes Plan: Nicotine patch offered (5) Alcohol abuse Is this a current diagnosis for this admission?: Yes Plan: Currently on CIWA scale with Ativan as needed. At this time, he is not showing any evidence of withdrawal. We will continue to monitor. - Time Time Spent with patient: 15-24 minutes
[2019-09-24] MEDS ORDERED: PROMETHAZINE HCL INJ 25 MG/1 ML VIAL IV PRN (11:39)
[2019-09-24] MEDS: KETOROLAC TROMETHAMINE INJ/PF 30 MG/1 ML SDV IV PRN (19:31)
[2019-09-25] MEDS: KETOROLAC TROMETHAMINE INJ/PF 30 MG/1 ML SDV IV PRN ×2 (01:42→15:31)
[2019-09-25] MEDS: RINGERS SOLUTION,LACTATED 1,000 ML IV PRN ×5 (02:04→21:09)
[2019-09-25] MEDS: MORPHINE SULFATE 10 MG/ML INJ IV PRN ×6 (02:55→21:08)
[2019-09-25 05:03] LABS: ALBUMIN 2.6 g/dL (3.5-5.0); ALKALINE PHOSPHATASE 61 U/L (38-126); ASPARTATE AMINO TRANSFERASE 32 U/L (17-59); BILIRUBIN,TOTAL 0.5 mg/dL (0.2-1.3); BLOOD UREA NITROGEN 5 mg/dL (7-20); CALCIUM 8.6 mg/dL (8.4-10.2); CARBON DIOXIDE 27 mmol/L (22-30); CHLORIDE 103 mmol/L (98-107); GLUCOSE 104 mg/dL (75-110); POTASSIUM 3.5 mmol/L (3.6-5.0); TOTAL PROTEIN 5.7 g/dL (6.3-8.2)
[2019-09-25 05:19] LABS: ANION GAP 4 (5-19)
[2019-09-25] MEDS: HEPARIN SOD (PORCINE) 5,000 UNIT/ML 1 ML VIAL SUBCUT SCH ×3 (06:23→21:09)
[2019-09-25] MEDS: NICOTINE 21 MG/24 HR PATCH.TD24 TD SCH (09:52)
[2019-09-25] MEDS: PANTOPRAZOLE SODIUM 40 MG VIAL IV SCH ×2 (09:53→21:09)
--- NOTE | 2019-09-25 15:15 | PDOC PROGRESS REPORT ---
Subjective Progress Note for:: 09/25/19 Subjective:: Patient admitted for alcoholic pancreatitis. He states this is occurred 4 times in the past. He states he is depressed and when his fiance was out of town he started drinking heavily, binge drinking as he has done before. He is interested in following up with a psychiatrist outpatient. We will need social work to help plug him into 1 of these facilities. His pain is well controlled on 3 mg of morphine every 3 hours today. We will keep it like this for now. Tomorrow we will lower the dose in the morning and taper him off of that. He may be appropriate to be discharged tomorrow if his pain is controlled and he is tolerating a diet. We will advance his diet to full liquids today. He can be advanced to a bland solid diet in the morning if he does well tonight. Extensive discussion with him about his alcohol/tobacco/cannabis abuse. Reason For Visit: ACUTE PANCREATITIS,PANCREATIC CYST Physical Exam Vital Signs: Temp Pulse Resp BP Pulse Ox 98.5 F 53 L 18 138/96 H 93 09/25/19 11:34 09/25/19 11:34 09/25/19 11:34 09/25/19 11:34 09/25/19 11:34 Intake & Output 09/24/19 09/25/19 09/26/19 06:59 06:59 06:59 Intake Total 4104 5350 2094 Output Total 900 675 Balance 4104 4450 1419 Weight 62.6 kg 64.7 kg General appearance: PRESENT: no acute distress, well-developed, well-nourished Head exam: PRESENT: atraumatic, normocephalic Eye exam: PRESENT: conjunctiva pink Mouth exam: PRESENT: moist Respiratory exam: PRESENT: clear to auscultation kev. ABSENT: rales, rhonchi, wheezes Cardiovascular exam: PRESENT: RRR. ABSENT: diastolic murmur, rubs, systolic murmur GI/Abdominal exam: PRESENT: normal bowel sounds, soft, tenderness - mild. AB SENT: distended, guarding, mass, organolmegaly, rebound Extremities exam: ABSENT: pedal edema Musculoskeletal exam: PRESENT: ambulatory Neurological exam: PRESENT: alert, awake, oriented to person, oriented to place, oriented to time, oriented to situation Skin exam: PRESENT: dry, intact, warm Results Laboratory Results: 09/24/19 04:44 06/28/20 04:20 09/25/19 04:20 Sodium 133.7 L Potassium 3.5 L Chloride 103 Carbon Dioxide 27 Anion Gap 4 L BUN 5 L Creatinine 0.51 L Est GFR ( Amer) > 60 Glucose 104 Calcium 8.6 Magnesium 1.4 L Total Bilirubin 0.5 AST 32 Alkaline Phosphatase 61 Total Protein 5.7 L Albumin 2.6 L Lipase 618.0 H Impressions: Abdomen/Pelvis CT 09/23/19 00:00 IMPRESSION: 1. Pancreatitis with a likely 2 cm pseudocyst in the tail of the pancreas. There is free fluid in the pelvis. 2. Hepatic steatosis versus hepatocellular disease. Assessment and Plan - Diagnosis (1) Acute alcoholic pancreatitis Qualifiers: Acute pancreatitis complication: no infection or necrosis Is this a current diagnosis for this admission?: Yes Plan: -Continue aggressive IV fluids. -Morphine IV and Tylenol as needed for pain with Toradol -Denies nausea -diet advance as tolerated. -improving gradually (2) Depression Qualifiers: Depression Type: major depressive disorder Major depression recurrence: recurrent Psychotic features: without psychotic features Is this a current diagnosis for this admission?: Yes Plan: Extensively counseled on substance abuse which he is using to self treat his depression Social work will need outpatient find a psychiatrist locally (3) Hyponatremia Is this a current diagnosis for this admission?: Yes Plan: -due to dehydration/poor caloric intake -resolved (4) Pancreatic pseudocyst Is this a current diagnosis for this admission?: Yes (5) Tobacco dependence due to cigarettes Is this a current diagnosis for this admission?: Yes (6) Alcohol abuse Is this a current diagnosis for this admission?: Yes (7) Cigarette smoker Is this a current diagnosis for this admission?: Yes (8) Acute pancreatitis Qualifiers: Pancreatitis type: alcohol induced Acute pancreatitis complication: unspecified Qualified Code(s): K85.20 - Alcohol induced acute pancreatitis without necrosis or infection Is this a current diagnosis for this admission?: Yes - Time Time Spent with patient: 25-34 minutes Smoking Cessation Education: 3 to 10 minutes Medications reviewed and adjusted accordingly: Yes Anticipated discharge: Home Within: within 48 hours - Inpatient Certification Based on my medical assessment, after consideration of the patient's comorbidities, presenting symptoms, or acuity I expect that the services needed warrant INPATIENT care.: Yes I certify that my determination is in accordance with my understanding of Medicare's requirements for reasonable and necessary INPATIENT services [42 CFR 412.3e].: Yes Medical Necessity: Need for Pain Control
[2019-09-26] MEDS: MORPHINE SULFATE 10 MG/ML INJ IV PRN ×2 (00:09→03:35)
[2019-09-26] MEDS: KETOROLAC TROMETHAMINE INJ/PF 30 MG/1 ML SDV IV PRN (02:11)
[2019-09-26] MEDS: RINGERS SOLUTION,LACTATED 1,000 ML IV PRN ×2 (02:13→06:37)
[2019-09-26] MEDS: HEPARIN SOD (PORCINE) 5,000 UNIT/ML 1 ML VIAL SUBCUT SCH ×2 (06:41→14:01)
[2019-09-26 07:30] LABS: ALBUMIN 2.8 g/dL (3.5-5.0); ALKALINE PHOSPHATASE 65 U/L (38-126); ANION GAP 5 (5-19); ASPARTATE AMINO TRANSFERASE 46 U/L (17-59); BILIRUBIN,TOTAL 0.5 mg/dL (0.2-1.3); CALCIUM 8.9 mg/dL (8.4-10.2); CARBON DIOXIDE 27 mmol/L (22-30); CHLORIDE 105 mmol/L (98-107); GLUCOSE 100 mg/dL (75-110); POTASSIUM 3.4 mmol/L (3.6-5.0)
[2019-09-26 07:33] LABS: BLOOD UREA NITROGEN < 2 mg/dL (7-20)
[2019-09-26] MEDS ORDERED: OXYCODONE-ACETAMINOPHEN 5-325 MG TABLET PO PRN (09:04)
[2019-09-26] MEDS ORDERED: MAGNESIUM SULFATE INJ 8 MEQ/2 ML IV ONE (09:06)
[2019-09-26] MEDS ORDERED: MAGNESIUM SULFATE/D5W 1 GM/100 ML RTUPB IV ONE (09:30)
[2019-09-26] MEDS: NICOTINE 21 MG/24 HR PATCH.TD24 TD SCH (10:16)
[2019-09-26] MEDS: PANTOPRAZOLE SODIUM 40 MG VIAL IV SCH (10:16)
--- NOTE | 2019-09-26 13:54 | PDOC DISCHARGE SUMMARY ---
Impression - Admit/DC Date/PCP Admission Date/Primary Care Provider: 09/23/19 15:00 Discharge Date: 09/26/19 - Discharge Diagnosis (1) Acute alcoholic pancreatitis Is this a current diagnosis for this admission?: Yes (2) Depression Is this a current diagnosis for this admission?: Yes (3) Hyponatremia Is this a current diagnosis for this admission?: Yes (4) Pancreatic pseudocyst Is this a current diagnosis for this admission?: Yes (5) Tobacco dependence due to cigarettes Is this a current diagnosis for this admission?: Yes (6) Alcohol abuse Is this a current diagnosis for this admission?: Yes (7) Cigarette smoker Is this a current diagnosis for this admission?: Yes (8) Acute pancreatitis Is this a current diagnosis for this admission?: Yes - Additional Information Resuscitation Status: Full Code Discharge Diet: As Tolerated Discharge Activity: Activity As Tolerated Referrals: [facility] [Outside] - 10/04/19 3:00 pm (DR. MARADIAGA WILL CALL YOU ON THE DAY OF YOUR APPOINTMENT.) Prescriptions: Oxycodone HCl/Acetaminophen [Percocet 5-325 mg Tablet] 1 tab PO Q12HP PRN #4 tablet PRN Reason: Moderate/Severe Pain Home Medications: Oxycodone HCl/Acetaminophen [Percocet 5-325 mg Tablet] 1 tab PO Q12HP PRN #4 tablet 09/26/19 History of Present Illiness History of Present Illness: Per admitting physician: "LEVI POP is a 23 year old male with a history of alcoholism and pancreatitis. States that he was alcohol free for 5 to 6 months. Recently he had a break-up with his significant other and then drank continuously for approximately 5 to 6 days. He stopped drinking 4 days ago. The pain began 3 days ago. He had only one episode of emesis. It was unknown if he had fever but he did report chills. The abdominal pain is epigastric but there is also some suprapubic pain as well. The patient's appetite has been minimal. Serum lipase is greater than [address] scan shows pancreatitis with a 2 cm pancreatic cyst at the tail of the pancreas. In addition there is free fluid in the pelvis. The patient will be admitted for supportive care with pain management, aggressive IV fluids and since his last drink was 4 days ago we will monitor closely for withdrawal." Hospital Course Hospital Course: Patient was admitted for alcohol induced acute pancreatitis which he states is his fourth episode. He was treated with appropriate IV fluids and pain control medications. His diet was very gradually advanced and he tolerated this well over several days. I discharge patient states he still has some intermittent mild to moderate abdominal pain and has requested some additional pain medicine at discharge. He will be given 4 tablets of Percocet 5-325 mg with no refills and this is been sent electronically to his pharmacy. He was told to use this drug sparingly and only when absolutely needed. He was counseled extensively on stopping his alcohol use and tobacco use. He has been referred to a local [facility] for psychiatric care and he agrees to follow-up with them. Lipase significantly reduced on day of discharge and patient is agreeable with the plan as above. Discharge to home. Physical Exam Vital Signs: Temp Pulse Resp BP Pulse Ox 97.4 F 58 L 16 134/94 H 99 09/26/19 08:08 09/26/19 08:08 09/26/19 08:08 09/26/19 08:08 09/26/19 08:08 Intake & Output 09/25/19 09/26/19 09/27/19 06:59 06:59 06:59 Intake Total 5350 7754 Output Total 900 675 Balance 4450 7079 Weight 64.7 kg 65 kg General appearance: PRESENT: no acute distress, well-developed, well-nourished Head exam: PRESENT: atraumatic, normocephalic Eye exam: PRESENT: conjunctiva pink Mouth exam: PRESENT: moist Respiratory exam: PRESENT: clear to auscultation kev. ABSENT: rales, rhonchi, wheezes Cardiovascular exam: PRESENT: RRR. ABSENT: diastolic murmur, rubs, systolic murmur GI/Abdominal exam: PRESENT: normal bowel sounds, soft, tenderness - minimal. ABSENT: distended, guarding, mass, organolmegaly, rebound Rectal exam: PRESENT: deferred Musculoskeletal exam: PRESENT: ambulatory Neurological exam: PRESENT: alert, awake, oriented to person, oriented to place, oriented to time, oriented to situation Psychiatric exam: PRESENT: appropriate affect Skin exam: PRESENT: dry, intact, warm Results Laboratory Results: WBC 6.6 10^3/uL (4.0-10.5) 09/24/19 04:44 RBC 4.54 10^6/uL (4.35-5.55) 09/24/19 04:44 Hgb 12.0 g/dL (13.5-17.0) L 09/24/19 04:44 Hct 36.8 % (37.9-51.0) L 09/24/19 04:44 MCV 81 fl (80-97) 09/24/19 04:44 MCH 26.4 pg (27.0-33.4) L 09/24/19 04:44 MCHC 32.5 g/dL (32.0-36.0) 09/24/19 04:44 RDW 16.2 % (11.5-14.0) H 09/24/19 04:44 Plt Count 154 10^3/uL (150-450) 09/24/19 04:44 Lymph % (Auto) 21.2 % (13-45) 09/24/19 04:44 [place] % (Auto) 16.9 % (3-13) H 09/24/19 04:44 Eos % (Auto) 1.8 % (0-6) 09/24/19 04:44 Baso % (Auto) 0.5 % (0-2) 09/24/19 04:44 Absolute Neuts (auto) 3.9 10^3/uL (1.7-8.2) 09/24/19 04:44 Absolute Lymphs (auto) 1.4 10^3/uL (0.5-4.7) 09/24/19 04:44 Absolute Monos (auto) 1.1 10^3/uL (0.1-1.4) 09/24/19 04:44 Absolute Eos (auto) 0.1 10^3/uL (0.0-0.6) 09/24/19 04:44 Absolute Basos (auto) 0.0 10^3/uL (0.0-0.2) 09/24/19 04:44 Seg Neutrophils % 59.6 % (42-78) 09/24/19 04:44 Sodium 137.4 mmol/L (137-145) 09/26/19 06:20 Potassium 3.4 mmol/L (3.6-5.0) L 09/26/19 06:20 Chloride 105 mmol/L (98-107) 09/26/19 06:20 Carbon Dioxide 27 mmol/L (22-30) 09/26/19 06:20 Anion Gap 5 (5-19) 09/26/19 06:20 BUN < 2 mg/dL (7-20) L 09/26/19 06:20 Creatinine 0.53 mg/dL (0.52-1.25) 09/26/19 06:20 Est GFR ( Amer) > 60 (>60) 09/26/19 06:20 Est GFR (MDRD) Non-Af > 60 (>60) 09/26/19 06:20 Glucose 100 mg/dL (75-110) 09/26/19 06:20 POC Glucose 93 mg/dL (70-110) 09/24/19 16:06 Calcium 8.9 mg/dL (8.4-10.2) 09/26/19 06:20 Magnesium 1.4 mg/dL (1.6-2.3) L 09/26/19 06:20 Total Bilirubin 0.5 mg/dL (0.2-1.3) 09/26/19 06:20 Direct Bilirubin 0.0 mg/dL (0.0-0.4) 09/26/19 06:20 Neonat Total Bilirubin Not Reportable 09/26/19 06:20 Neonat Direct Bilirubin Not Reportable 09/26/19 06:20 Neonat Indirect Bili Not Reportable 09/26/19 06:20 AST 46 U/L (17-59) 09/26/19 06:20 ALT 34 U/L (<50) 09/26/19 06:20 Alkaline Phosphatase 65 U/L (38-126) 09/26/19 06:20 Total Protein 6.0 g/dL (6.3-8.2) L 09/26/19 06:20 Albumin 2.8 g/dL (3.5-5.0) L 09/26/19 06:20 Triglycerides 123 mg/dL (<150) 09/24/19 04:44 Cholesterol 175.45 mg/dL (0-200) 09/24/19 04:44 LDL Cholesterol Direct 82 mg/dL (<100) 09/24/19 04:44 VLDL Cholesterol 25.0 mg/dL (10-31) 09/24/19 04:44 HDL Cholesterol 66 mg/dL (>40) 09/24/19 04:44 Lipase 176.4 U/L (23-300) 09/26/19 06:20 Urine Color YELLOW 09/23/19 04:45 Urine Appearance SLIGHTLY-CLOUDY 09/23/19 04:45 Urine pH 5.0 (5.0-9.0) 09/23/19 04:45 Ur Specific [place] 1.025 09/23/19 04:45 Urine Protein 30 mg/dL (NEGATIVE) H 09/23/19 04:45 Urine Glucose (UA) NEGATIVE mg/dL (NEGATIVE) 09/23/19 04:45 Urine Ketones 20 mg/dL (NEGATIVE) H 09/23/19 04:45 Urine Blood SMALL (NEGATIVE) H 09/23/19 04:45 Urine Nitrite NEGATIVE (NEGATIVE) 09/23/19 04:45 Urine Bilirubin NEGATIVE (NEGATIVE) 09/23/19 04:45 Urine Urobilinogen 2.0 mg/dL (<2.0) H 09/23/19 04:45 Ur Leukocyte Esterase NEGATIVE (NEGATIVE) 09/23/19 04:45 Urine WBC (Auto) 2 /HPF 09/23/19 04:45 Urine RBC (Auto) 5 /HPF 09/23/19 04:45 Urine Mucus (Auto) MANY /LPF 09/23/19 04:45 Urine Ascorbic Acid NEGATIVE (NEGATIVE) 09/23/19 04:45 Urine Opiates Screen UNCONFIRMED POSITIVE 09/23/19 04:45 Urine Methadone Screen NEGATIVE 09/23/19 04:45 Ur Barbiturates Screen NEGATIVE 09/23/19 04:45 Ur Phencyclidine Scrn NEGATIVE 09/23/19 04:45 Ur Amphetamines Screen NEGATIVE 09/23/19 04:45 U Benzodiazepines Scrn NEGATIVE 09/23/19 04:45 Urine Cocaine Screen NEGATIVE 09/23/19 04:45 U Marijuana (THC) Screen UNCONFIRMED POSITIVE 09/23/19 04:45 Serum Alcohol < 10 mg/dL (NONE DETECTED) 09/23/19 04:45 Impressions: Abdomen/Pelvis CT 09/23/19 00:00 IMPRESSION: 1. Pancreatitis with a likely 2 cm pseudocyst in the tail of the pancreas. There is free fluid in the pelvis. 2. Hepatic steatosis versus hepatocellular disease. Stroke Is this a Stroke Patient?: No Acute Heart Failure - Is this a Heart Failure Patient?: No
[2019-09-26 14:27] VITALS: BP 150/67
== END 2019-09-26 14:47 | disposition home or self-care (01) | DRG 439 ==
LOC: ER 00:47 → EH 15:00 → 3S 17:40
PROVIDERS: ADMIT Hospitalist; ATTEND Internal Medicine
DX: K85.20 Alcohol induced acute pancreatitis without necrosis or infection (principal); E87.1 Hypo-osmolality and hyponatremia; K86.3 Pseudocyst of pancreas; F12.90 Cannabis use, unspecified, uncomplicated; F32.9 Major depressive disorder, single episode, unspecified; E86.0 Dehydration; F17.210 Nicotine dependence, cigarettes, uncomplicated; Z81.1 Family history of alcohol abuse and dependence
CPT/HCPCS: 36415; 74177; 80053; 80061; 80307; 81001; 82962; 83690; 83735; 85025; 96361; 96374; 96375; 99285; C9113; J1170; J1644; J1885; J2270; J2405; J3475; J3490; J7030; J7120

== ENCOUNTER 2019-11-05 15:49 | Emergency (ER) | payer SELFPAY ==
--- NOTE | 2019-11-05 16:05 | ER Document Report ---
ED General - General Stated Complaint: POSSIBLE OVERDOSE Time Seen by Provider: 11/05/19 15:57 Mode of Arrival: Medic Information source: Patient, Emergency Med Personnel Cannot obtain history due to: Intoxicated, Altered mental status Notes: 23-year-old black male arrives via EMS after he was found to be unconscious after taking 30 mg oxycodone and fentanyl and drinking alcohol today. He ate some eggs and sausage for breakfast he remembers but that is the last thing he does remember. His performed CPR on him until EMS arrived to find him with a 47% saturation and unconscious. He was given Narcan and regained consciousness. He was brought in via EMS asking repeatedly for his . It was explained to him that she will be brought back as soon as she arrives to the emergency room upfront. Patient reports he takes the pain medicine because he has pancreatitis. He is a drinking man of alcohol but says he is going to stop drinking I advised him to get some Narcan for the house in case this happens again. He reports "he does not need it because he is going to stop doing any alcohol or narcotics." Patient reports to nursing staff "put into the that he used to do a lot of heroin and Xanax." TRAVEL OUTSIDE OF THE [place] IN LAST 30 DAYS: No - HPI Onset: Just prior to arrival Onset/Duration: Sudden, Better Quality of pain: Other - + abd pain Severity: Mild Pain Level: 1 Associated symptoms: Weakness Exacerbated by: Denies Relieved by: Denies Similar symptoms previously: Yes Recently seen / treated by doctor: Yes - Related Data Allergies/Adverse Reactions: No Known Allergies Allergy (Verified 01/13/19 07:39) Past Medical History - General Information source: Patient Cannot obtain history due to: Intoxicated, Altered mental status - drowsy from overdose but can easily awaken with verbal prompting and shaking - Social History Smoking Status: Current Every Day Smoker Cigarette use (# per day): Yes Chew tobacco use (# tins/day): No Smoking Education Provided: Yes Frequency of alcohol use: Heavy Drug Abuse: Heroin, Prescription drugs Lives with: Family Family History: Reviewed & Not Pertinent, Other - Alcoholism Patient has suicidal ideation: No Patient has homicidal ideation: No Endocrine Medical History: Denies: Hx Diabetes Mellitus Type 1, Hx Diabetes Mellitus Type 2 Renal/ Medical History: Denies: Hx Peritoneal Dialysis GI Medical History: Reports: Hx Pancreatitis Psychiatric Medical History: Denies: Hx Depression - Immunizations Immunizations up to date: Yes Hx Diphtheria, Pertussis, Tetanus Vaccination: Yes - 01/26/2018 Review of Systems - Review of Systems Constitutional: See HPI, Weakness EENT: See HPI, Other - tearful asking for Cardiovascular: No symptoms reported Respiratory: No symptoms reported Gastrointestinal: See HPI, Abdominal pain Genitourinary: No symptoms reported Male Genitourinary: No symptoms reported Musculoskeletal: No symptoms reported Skin: No symptoms reported, Other - multiple non colored tattoos Hematologic/Lymphatic: No symptoms reported Neurological/Psychological: No symptoms reported Physical Exam - Vital signs Vitals: Temp 97.8 F 11/05/19 15:49 Interpretation: Normal - HEENT Head: Normocephalic, Atraumatic Eyes: Normal Pupils: PERRL Mucous membranes: Dry Pharynx: Normal Neck: Normal - Respiratory Respiratory status: No respiratory distress Chest status: Nontender Breath sounds: Normal Chest palpation: Normal - Cardiovascular Rhythm: Regular Heart sounds: Normal auscultation Murmur: No - Abdominal Inspection: Normal Distension: No distension Bowel sounds: Normal Tenderness: Tender - periumbilical pain Organomegaly: No organomegaly - Rectal Prostate: Other - deferred - Genitourinary Scrotum: Other - deferred - Back Back: Normal - Extremities General upper extremity: Normal inspection General lower extremity: Normal inspection - Neurological Neuro grossly intact: Yes Cognition: Normal Orientation: AAOx4 Sandy Coma Scale Eye Opening: Spontaneous Sandy Coma Scale Verbal: Oriented Sandy Coma Scale Motor: Obeys Commands Sandy Coma Scale Total: 15 Speech: Normal Motor strength normal: LUE, RUE, LLE, RLE Sensory: Normal - Psychological Associated symptoms: Anxious, Confused Course - Vital Signs Vital signs: Temp Pulse Resp BP Pulse Ox 98.7 F 15 133/94 H 99 11/05/19 16:05 11/05/19 17:01 11/05/19 17:00 11/05/19 17:01 - Laboratory Result Diagrams: 11/05/19 16:09 11/05/19 16:09 Laboratory results interpreted by me: 11/05/19 11/05/19 11/05/19 16:09 16:09 16:09 Hgb 12.6 L MCV 77 L MCH 24.5 L RDW 17.5 H Total Protein 8.3 H Salicylates < 1.0 L Acetaminophen < 10 L Serum Alcohol 377 H* - Diagnostic Test Radiology reviewed: Reports reviewed - EKG Interpretation by Me EKG shows normal: Sinus rhythm Rate: Tachycardia Rhythm: NSR - [address] elevation no ST depression no T wave elevation no T wave depression and axis within normal limits Discharge - Discharge Clinical Impression: Cigarette smoker Acute pancreatitis Qualifiers: Pancreatitis type: alcohol induced Acute pancreatitis complication: unspecified Qualified Code(s): K85.20 - Alcohol induced acute pancreatitis without necrosis or infection Overdose of opiate or related narcotic Qualifiers: Encounter type: initial encounter Injury intent: accidental or unintentional Qualified Code(s): T40.601A - Poisoning by unspecified narcotics, accidental (unintentional), initial encounter Alcohol intoxication Qualifiers: Complication of substance-induced condition: with unspecified complication Qualified Code(s): F10.929 - Alcohol use, unspecified with intoxication, unspecified Condition: Good Disposition: HOME, SELF-CARE Additional Instructions: Follow-up with personal doctor this week avoid using alcohol and narcotic drugs if possible. This will help you with your pancreatitis and also with any overdose problems. Please allow your you to dispense your Haldol and Ativan. You have been evaluated by Praneeth from behavioral health today. She advises jacky chi. Prescriptions: Lorazepam [Ativan 1 mg Tablet] 1 mg PO BID #14 tab Haloperidol [Haldol 5 mg Tablet] 5 mg PO DAILY #7 tablet
[2019-11-05 16:46] LABS: ABSOLUTE BASOPHILS # (AUTO) 0.1 10^3/uL (0.0-0.2); ABSOLUTE EOSINOPHILS # (AUTO) 0.1 10^3/uL (0.0-0.6); ABSOLUTE LYMPHOCYTES (AUTO) 1.7 10^3/uL (0.5-4.7); ABSOLUTE MONOCYTES (AUTO) 0.5 10^3/uL (0.1-1.4); ABSOLUTE NEUT (AUTO) 2.3 10^3/uL (1.7-8.2); BASOPHILS % (AUTO) 1.2 % (0-2); EOSINOPHILS % (AUTO) 1.3 % (0-6); HEMATOCRIT 39.3 % (37.9-51.0); HEMOGLOBIN 12.6 g/dL (13.5-17.0); LYMPHOCYTES % (AUTO) 37.8 % (13-45); MEAN CORPUSCULAR HEMOGLOBIN 24.5 pg (27.0-33.4); MEAN CORPUSCULAR VOLUME 77 fl (80-97); PLATELET COUNT 283 10^3/uL (150-450); RED BLOOD COUNT 5.13 10^6/uL (4.35-5.55); RED CELL DISTRIBUTION WIDTH 17.5 % (11.5-14.0); SEGMENTED NEUTROPHILS % (AUTO) 49.7 % (42-78); TOTAL CELLS COUNTED % (AUTO) 100 %; WHITE BLOOD COUNT 4.6 10^3/uL (4.0-10.5)
--- NOTE | 2019-11-05 17:02 | RADIOLOGY REPORT (SQ) ---
EXAM DESCRIPTION: CHEST SINGLE VIEW IMAGES COMPLETED DATE/TIME: 11/05/2019 3:25 pm REASON FOR STUDY: overdose COMPARISON: 01/13/2019 EXAM PARAMETERS: NUMBER OF VIEWS: One view. TECHNIQUE: Single frontal radiographic view of the chest acquired. RADIATION DOSE: NA LIMITATIONS: None. FINDINGS: LUNGS AND PLEURA: No opacities, masses or pneumothorax. No pleural effusion. MEDIASTINUM AND HILAR STRUCTURES: No masses. Contour normal. HEART AND VASCULAR STRUCTURES: Heart normal in size. Normal vasculature. BONES: No acute findings. HARDWARE: None in the chest. OTHER: No other significant finding. IMPRESSION: NO ACUTE RADIOGRAPHIC FINDING IN THE CHEST. TECHNICAL DOCUMENTATION: JOB ID: [id number] 2010 [employer]- All Rights Reserved Reading location - IP/workstation name: [email or web address]
[2019-11-05 17:03] LABS: ALBUMIN 4.3 g/dL (3.5-5.0); ALKALINE PHOSPHATASE 96 U/L (38-126); ANION GAP 9 (5-19); ASPARTATE AMINO TRANSFERASE 46 U/L (17-59); BILIRUBIN,TOTAL 0.4 mg/dL (0.2-1.3); BLOOD UREA NITROGEN 11 mg/dL (7-20); CALCIUM 9.2 mg/dL (8.4-10.2); CARBON DIOXIDE 25 mmol/L (22-30); CHLORIDE 107 mmol/L (98-107); GLUCOSE 95 mg/dL (75-110); POTASSIUM 4.7 mmol/L (3.6-5.0); TOTAL PROTEIN 8.3 g/dL (6.3-8.2)
[2019-11-05 17:06] LABS: ACETAMINOPHEN < 10 ug/mL (10-30)
[2019-11-05 17:12] LABS: ALCOHOL 377 mg/dL (NONE DETECTED)
--- NOTE | 2019-11-05 17:13 | PSYCHOLOGICAL NOTE ---
Psych Note - Psych Note Date seen by psych provider: 11/05/19 Time seen by psych provider: 16:45 Psych Note: Reason for Consult: Overdose Patient's at bedside per patient's request Patient arrived to [facility] due to overdosing on percocet. Patient states he took approximately 5 percocets and had been drinking alcohol. Patient denies he was trying to harm himself stating that he was in pain. Patient reports he has been using Percocet for approximately 10 years for pain. He reports that he would never kill himself he has a family that needs him. Patient confirms drinking alcohol and using Percocets does not help him be an effective family member. Patient is unable to identify a significant event that has caused him the pain patient just discloses every day minor aches and pains such as his arms being scraped up in his teeth etc. He reports he is interested in getting off of them however does not want to go into a facility or take another drug in its place. Clinician engaged in psychoeducation which includes getting through withdrawal and then using alternate methods for pain such as jacky chi. Both patient and patient's are very interested in this alternate plan. Patient's confirms she will keep all medications and ensure the patient does not have access. Patient is alert and orientated to person, place, time and circumstance. Patient is currently highly intoxicated however is able to engage in effectively in evaluation. Patient denies suicidal and homicidal ideation. Both patient and patient's deny concerns with delusions or hallucinations. Attention and concentration is poor due to intoxication. Conversational speech is slurred. Insight judgment and impulse control is poor due to substance abuse. Medication recommendations per [facility]'s contracted psychiatrist Dr.Akintayo VALENTINE are as follows Haldol 5 mg twice daily PRN to assist with withdrawals Cogentin 1 mg daily PRN to be taken with Haldol Impression\plan: Patient is cleared from acute psychiatric services. Patient accidentally overdosed when using Percocet. Is currently believe that the patient had possibly fentanyl in the Percocet he purchased on the street. Patient was also drinking alcohol. Patient declines assistance for detox fac ilities however engages in conversation in regards to alternate pain therapy and assistance through withdrawal. Patient is provided local resource list of detox facilities and mobile crisis contact information if he changes his mind. Patient's confirms she will ensure the patient does not have access and will only administer the medication as needed and not to mix with any other substance i.e. alcohol or pain medication. Dr. Rutledge was consulted to care management of this patient; tending physicians in agreement with recommendations and disposition.
[2019-11-05 19:37] VITALS: BP 114/77
--- NOTE | 2019-11-05 19:42 | EKG REPORT ---
SEVERITY:- NORMAL ECG - SINUS RHYTHM : Confirmed by: Darron Jackson MD 05-Nov-2019 19:41:20
== END 2019-11-05 19:38 | disposition home or self-care (01) ==
LOC: ER 15:49
DX: T40.2X1A Poisoning by other opioids, accidental (unintentional), initial encounter (principal); T40.601A Poisoning by unspecified narcotics, accidental (unintentional), initial encounter; X58.XXXA Exposure to other specified factors, initial encounter; K85.20 Alcohol induced acute pancreatitis without necrosis or infection; F10.929 Alcohol use, unspecified with intoxication, unspecified; R10.33 Periumbilical pain; F17.210 Nicotine dependence, cigarettes, uncomplicated
CPT/HCPCS: 36415; 71045; 80053; 80307; 83690; 85025; 93005; 93010; 99285